=== PATIENT | male | born 1945 | race African-American/Black ===

== ENCOUNTER 2017-01-28 09:06 | Inpatient (IN) | payer OTHER ==
[~2017-01-28] VITALS: Ht 180.3 cm; Wt 108.0 kg
[~2017-01-28 09:06] MED LIST: ALLO100T PO; ASPI-482 PO; CARV12.52 PO; CLOP75TA PO; CRESTOR40 MG PO; EZET10TA3 PO; FURO40TA4 PO; INSU100I17 SQ; ISOS30TA4 PO; Insulin Detemir SQ; LISI10TA2 PO; POTA20TA4 PO
--- NOTE | 2017-01-28 09:26 | PHYS DOC ---
Past Medical History Past Medical History: Arrhythmia, CAD, Diabetes-Type II, Hypertension, Kidney Infection, PR Past Surgical History: Coronary Bypass Surgery, Pacemaker, Other Additional Past Surgical Histo: 2000 CABG x2, 2013 CABG x3, AICD Alcohol Use: None Drug Use: None Adult General Chief Complaint Chief Complaint: CHEST PAIN HPI HPI 71-year-old male who has for the last week some moderate left shoulder pain that does radiate somewhat into his chest and back now for the last several days. He does have significant history of multiple bypass surgeries and has a pacemaker device. He is also known diabetic. He denies any shortness of breath or chest pain currently. He states that his symptoms have been intermittently there. He does not believe activities make them worse. He cannot relate any inciting events to the source of his pain. Review of Systems Review of Systems Constitutional: Denies fever or chills [] Eyes: Denies change in visual acuity, redness, or eye pain [] HENT: Denies nasal congestion or sore throat [] Respiratory: Denies cough or shortness of breath [] Cardiovascular: No additional information not addressed in HPI [] GI: Denies abdominal pain, nausea, vomiting, bloody stools or diarrhea [] : Denies dysuria or hematuria [] Musculoskeletal: Denies back pain or joint pain [] Integument: Denies rash or skin lesions [] Neurologic: Denies headache, focal weakness or sensory changes [] Endocrine: Denies polyuria or polydipsia [] Current Medications Current Medications Current Medications Medications (Trade) Dose Ordered Sig/[facility] Start Time Stop Time Status Last Admin Dose Admin Morphine Sulfate 4 mg 1X ONCE 01/28/17 09:45 01/28/17 09:47 DC 01/28/17 09:52 4 MG Allergies Allergies Allergies Coded Allergies Type Severity Reaction Last Updated Verified No Known Drug Allergies 10/30/14 No Physical Exam Physical Exam Constitutional: Well developed, well nourished, no acute distress, non-toxic appearance. [] HENT: Normocephalic, atraumatic, bilateral external ears normal, oropharynx moist, no oral exudates, nose normal. [] Eyes: PERRLA, EOMI, conjunctiva normal, no discharge. [] Neck: Normal range of motion, no tenderness, supple, no stridor. [] Cardiovascular:Heart rate regular rhythm, no murmur [] Lungs & Thorax: Bilateral breath sounds clear to auscultation [] Abdomen: Bowel sounds normal, soft, no tenderness, no masses, no pulsatile masses. [] Skin: Warm, dry, no erythema, no rash. [] Back: No tenderness, no CVA tenderness. [] Extremities: No tenderness, no cyanosis, no clubbing, ROM intact, no edema. [] Neurologic: Alert and oriented X 3, normal motor function, normal sensory function, no focal deficits noted. [] Psychologic: Affect normal, judgement normal, mood normal. [] Current Patient Data Vital Signs Vital Signs Date Time Temp Pulse Resp B/P Pulse Ox O2 Delivery O2 Flow Rate FiO2 01/28/17 09:54 72 32 172/79 92 Room Air 01/28/17 09:10 98.5 98.5 Lab Values Laboratory Tests Test 01/28/17 09:15 01/28/17 09:45 White Blood Count 7.6x10^3/uL (4.0-11.0) Red Blood Count 5.14x10^6/uL (4.30-5.70) Hemoglobin 14.0g/dL (13.0-17.5) Hematocrit 43.2% (39.0-53.0) Mean Corpuscular Volume 84fL (79-100) Mean Corpuscular Hemoglobin 27pg (25-35) Mean Corpuscular Hemoglobin Concent 32g/dL (31-37) Red Cell Distribution Width 15.2% (11.5-14.5) H Platelet Count 171x10^3/uL (140-400) Neutrophils (%) (Auto) 48% (31-73) Lymphocytes (%) (Auto) 30% (24-48) Monocytes (%) (Auto) 16% (0-9) H Eosinophils (%) (Auto) 6% (0-3) H Basophils (%) (Auto) 1% (0-3) Neutrophils # (Auto) 3.6x10^3uL (1.8-7.7) Lymphocytes # (Auto) 2.3x10^3/uL (1.0-4.8) Monocytes # (Auto) 1.2x10^3/uL (0.0-1.1) H Eosinophils # (Auto) 0.4x10^3/uL (0.0-0.7) Basophils # (Auto) 0.1x10^3/uL (0.0-0.2) Sodium Level 143mmol/L (136-145) Potassium Level 4.9mmol/L (3.5-5.1) Chloride Level 107mmol/L (98-107) Carbon Dioxide Level 26mmol/L (21-32) Anion Gap 10 (6-14) Blood Urea Nitrogen 37mg/dL (8-26) H Creatinine 2.1mg/dL (0.7-1.3) H Estimated GFR (Cockcroft-Gault) 37.6 Glucose Level 135mg/dL (70-99) H Calcium Level 9.0mg/dL (8.5-10.1) Troponin I Quantitative 0.072ng/mL (0.000-0.055) Laboratory Tests 01/28/17 09:15 Laboratory Tests 01/28/17 09:45 EKG EKG EKG as interpreted by me shows sinus rhythm with a leftward axis and a rate of 63 bpm. There are no obvious ischemic findings seen. Radiology/Procedures Radiology/Procedures Portable view of the chest shows some mild pulmonary edema at the base but no other acute findings. Course & Med Decision Making Course & Med Decision Making Pertinent Labs and Imaging studies reviewed. (See chart for details) This 71-year-old male with known cardiac history with significant left shoulder pain that is not present on my initial evaluation. At this time, his symptoms are very subjective and sounds somewhat atypical for heart related chest pain however with his prior history I will be obtaining full laboratory workup. His EKG at this time does not reveal any acute findings. Laboratory workup shows a mildly elevated troponin of 0.07 that he's had elevated in the past at around this level. Chest film shows some mild pulmonary congestion bilaterally but no other acute findings. I'll be admitting the patient for his ongoing left shoulder and chest pain. I discussed the need to admit the patient with the hospitalist, Dr. Singh, who agreed to accept the patient with cardiology consult as well. Repeat troponins were performed. Patient left the department feeling improved and in no acute distress. Dragon Disclaimer Dragon Disclaimer This electronic medical record was generated, in whole or in part, using a voice recognition dictation system. Departure Departure Impression: Primary Impression: Chest pain Disposition: 09 ADMITTED INPATIENT Admitting Physician: Kim Singh Condition: STABLE Referrals: DARLING CASTORENA MD (PCP) LUCIA PATTON DO Jan 28, 2017 09:26
[2017-01-28 09:28] LABS: BASO # 0.1 x10^3/uL (0.0-0.2); BASO % 1 % (0-3); EOS % 6 % (0-3); HEMATOCRIT 43.2 % (39.0-53.0); LYMPH # 2.3 x10^3/uL (1.0-4.8); LYMPH % 30 % (24-48); MEAN CORPUSCULAR HEMOGLOBIN 27 pg (25-35); MEAN CORPUSCULAR HGB CONC 32 g/dL (31-37); MEAN CORPUSCULAR VOLUME 84 fL (79-100); MONO % 16 % (0-9); NEUT % 48 % (31-73); PLATELET COUNT 171 x10^3/uL (140-400); RED BLOOD COUNT 5.14 x10^6/uL (4.30-5.70); RED CELL DISTRIBUTION WIDTH 15.2 % (11.5-14.5); WHITE BLOOD COUNT 7.6 x10^3/uL (4.0-11.0)
--- NOTE | 2017-01-28 09:30 | RAD ---
EXAM: Chest one view. HISTORY: Chest pain. COMPARISON: 09/28/2015. FINDINGS: A frontal view of the chest is obtained. A left-sided pacer/defibrillator has its leads in the right atrium and right ventricle. There are changes of coronary artery bypass grafting. Mild interstitial opacities in the bases are consistent with mild pulmonary edema and atelectasis. There is no pneumothorax or pleural effusion. The heart is moderately enlarged. IMPRESSION: 1. Mild pulmonary edema. Moderate cardiomegaly.
--- NOTE | 2017-01-28 09:34 | EKG ---
[facility] [address] [place] [address] Test Date: 2017-01-28 Test Time: 09:14:36 Pat Name: NAVEED KRAUSE Department: Room: Gender: M Memory Care Director: : 1945 Requested By: LUCIA PATTON Order Number: [id number] Reading MD: Measurements Intervals [place] Rate: 63 P: -44 [place]: 156 QRS: -10 QRSD: 112 T: 137 QT: 440 QTc: 454 Interpretive Statements SINUS RHYTHM LEFTWARD AXIS QRS(T) CONTOUR ABNORMALITY CONSISTENT WITH INFERIOR INFARCT PROBABLY OLD T ABNORMALITY IN LATERAL LEADS RI6.01 Unconfirmed report No previous ECG available for comparison
[2017-01-28] MEDS ORDERED: MORPHINE SULFATE 4 MG/ML DISP.SYRIN. IV ONE (09:45)
[2017-01-28 10:03] LABS: CREATININE 2.1 mg/dL (0.7-1.3); GFR 37.6; POTASSIUM 4.9 mmol/L (3.5-5.1)
--- NOTE | 2017-01-28 11:13 | ACF ---
Admission Forms Criteria CARDIOLOGY GRG Clinical Indications for Admission to Inpatient Care ( Place 'X' for any and all applicable criteria): Hospital admission is needed for appropriate care of the patient because of ANY ONE of the following (1): [ ] I. Hemodynamic instability as indicated by ALL of the following (1)(2)(3) (4)(5) [ ]a) Vital signs or other findings not as expected for chronic patient condition or baseline [ ]b) Instability indicated by ANY ONE of the following: [ ]i) Hypotension [ ]ii) Symptomatic Tachycardia unresponsive to treatment ( e.g., analgesia, fluids, sedation as indicated) [ ]iii) Inadequate perfusion indicated by ANY ONE of the following: [ ] 1) Lactic acidosis (> 2 mmol/L) [ ] 2) New abnormal capillary refill (> 3 seconds) [ ] 3) Reduced urine output [ ] 4) New altered mental status [ ]iv) Orthostatic vital sign changes unresponsive to treatment (e.g., fluids) [ ]v) IV inotropic or vasopressor medication required to maintain adequate blood pressure or perfusion [ ] II. Severe heart failure as indicated by ANY ONE of the following(17)(18) [ ]a) Respiratory distress [ ]b) Hypotension [ ]c) Anasarca (refractory to outpatient therapy) [ ]d) Cardiac arrhythmias of immediate concern [ ]e) Myocardial ischemia [ ] III. Cardiac arrhythmias or findings of immediate concern indicated by ANY ONE of the following (19)(20): [ ] a) Heart rhythms that are inherently dangerous or unstable indicated by ANY ONE of the following (21)(22)(23): [ ] i) Resuscitated ventricular fibrillation or cardiac arrest [ ] ii) Ventricular escape rhythm [ ] iii) Sustained ventricular tachycardia (30 seconds or more of ventricular rhythm at greater than 100 beats per minute) [ ] iv) Nonsustained ventricular tachycardia and ANY ONE of the following: [ ] 1) Suspected cardiac ischemia as cause or consequence of ventricular tachycardia [ ] 2) In setting of acute myocarditis [ ] b) Unstable cardiac conduction defects indicated by ANY ONE of the following(23)(24)(25) [ ] i) Type II second-degree atrioventricular block [ ]ii) Third-degree atrioventricular block [ ]iii) New-onset left bundle branch block with suspected myocardial ischemia [ ]c) Any heart rhythm and ANY ONE of the following (21)(22)(26)(27) (28) [ ] i) Continuous long-term ECG monitoring needed (e.g., initiation of drug requiring monitoring for more than 24 hours) [ ] ii) Patient has automatic implanted cardioverter defibrillator that is repeatedly firing, malfunctioning, or in need of immediate adjustment of settings beyond the scope of ambulatory or observation care [ ]d) Heart rhythms of concern due to ANY ONE of the following: [ ] i) Hypotension [ ] ii) Respiratory distress [ ] iii) Association with other significant symptoms (e.g., bradycardia with syncope or ongoing dizziness, supraventricular tachycardia with chest pain (14)(15)(17) [ ] IV. Monitoring for cardiac contusion beyond the scope of observation care needed [A](30)(31)(32) [ ] V. Surgical or device complication (e.g., valve replacement complication , pacemaker dysfunction) (35)(41)(44)(45)(46) [ ] . Inpatient palliative care needed. [B](49) Also use Inpatient Palliative Care Criteria [ ] VII. Nonbacterial thrombotic (marantic) endocarditis (36)(43)(47)(48) [X] VIII. Cardiology condition, symptom, or finding for which emergency and observation care has failed or are not considered appropriate. [ ] IX. Acute valvular disease requiring inpatient as indicated by ANY ONE of the following (41) [ ]a) Acute valvular regurgitation (42) [ ]b) Noninfectious valvulitis (43) [ ]c) Obstructive valve thrombosis [ ]d) Paravalvular leak [ ]e) Other significant valvular disorder remaining after emergency or observation level of care (as appropriate) [ ]X. Pericardial disease requiring inpatient treatment as indicated by ANY ONE of the following (33)(34)(35)(36)(37) [ ]a) Suspected tamponade (38)(39)(40) [ ]b) Hemopericardium [ ]c) Other significant pericardial disorder remaining after emergency or observation level of care (as appropriate) [ ] XI. Cardiac ischemia beyond scope of emergency and observation care. [ ] XII. Hypertension requiring inpatient treatment as indicated by ANY ONE of the following (6)(7)(8) [ ]a) SBP greater than 220 mm Hg or DBP greater than 120 mmHg despite treatment [ ]b) SBP greater than 140 mm Hg or DBP greater than 100 mm Hg with evidence of acute end organ damage as indicated by ANY ONE of the following [ ] i) Encephalopathy [ ] ii) Acute renal failure as indicated by new onset of ANY ONE of the following (9)(10)(11)(12)(13) [ ]1) 3-fold rise in serum creatinine from baseline [ ]2) Serum creatinine greater than 4 mg/dL ( 354 micromoles/L) with acute rise greater than 0.5 mg/dL (44.2 micromoles/L) [ ]3) Reduction of more than 75% in estimated glomerular filtration rate from baseline [ ]4) Estimated glomerular filtration rate less than 35 mL/min/1.73m2 (0.59 mL/sec/1.73m2) in child up to 18 years of age [ ]5) Cessation of urine output indicated by ALL of the following [ ]A. Adequate volume status [ ]B. Inadequate urine output as indicated by ANY ONE of the following [ ]a. Urine output less than 0.3 mL/kg/hr for 24 hours [ ]b. Anuria (urine output less than 0.1 mL/kg/hr) for 12 hours [ ] iii) Aortic dissection [ ] iv) Myocardial Ischemia [ ] v) Left ventricular heart failure [ ]vi) Retinal Hemorrhage [ ]vii) Other significant finding [ ]c) Hypertension in child requiring inpatient treatment as indicated by ALL of the following(14)(15)(16) [ ] i) Outpatient treatment not effective, not available, or not appropriate [ ]ii) SBP or DBP greater than 95th percentile for age [ ]iii) Evidence of acute end organ damage as indicated by ANY ONE of the following [ ]1) Altered mental status [ ]2) Acute renal failure as indicated by new onset of ANY ONE of the following(9)(10)(11)(12)(13) [ ]A. 3-fold rise in serum creatinine from baseline [ ]B. Serum creatinine greater than 4 mg/dL (354 micromoles/L) with acute rise greater than 0.5 mg/dL (44.2 micromoles/L) [ ]C. Reduction of more than 75% in estimated glomerular filtration rate from baseline [ ]D. Estimated glomerular filtration rate less than 35 mL/min/1.73m2 (0.59 mL/sec/1.73m2) in child up to 18 years of age [ ]E. Cessation of urine output indicated by ALL of the following [ ]a. Adequate volume status [ ]b. Inadequate urine output as indicated by ANY ONE of the following [ ]i) Urine output less than 0.3 mL/kg/hr for 24 hours [ ]ii) Anuria ( urine output less than 0.1 mL/kg/hr) for 12 hours [ ]3) Severe headache [ ]4) Visual disturbance [ ]5) Retinal hemorrhage [ ]6) Other significant finding [ ]XIII. Complications of transplanted heart indicated by ANY ONE of the following(61): [ ]a) Acute graft rejection requiring inpatient management (eg, intravenous immunosuppression)(62)(63) [ ]b) Acute graft heart failure indicated by ANY ONE of the following(64): [ ]i) Hemodynamic instability [ ]ii) Cardiac arrhythmias of immediate concern [ ]iii) Pulmonary edema that is very severe (eg, mechanical ventilation needed, imminent or likely, need for 100% oxygen to keep oxygen saturation above 90%) [ ]iv) Pulmonary edema that is persistent as indicated by ALL of the following: [ ]1) New need for oxygen therapy to keep oxygen saturation above 90% (or increased FiO2 need from baseline) [ ]2) Has not improved sufficiently with emergency department or observation care IV diuretics or other heart failure treatments[E] [ ]v) Altered mental status that is severe or persistent [ ]vi) Increased creatinine (new on laboratory test) with reduction of more than 50% in estimated glomerular filtration rate from baseline [ ]vii) Progressively (ongoing) rising creatinine (known from past laboratory test) with reduction of more than 25% in estimated glomerular filtration rate from baseline [ ]viii) Acute renal failure [ ]ix) Acute peripheral ischemia (eg, examination shows pulseless, cool, mottled, or cyanotic extremity) [ ]x) Pulmonary artery catheter monitoring needed [ ]xi) Other sign or symptom of heart failure requiring inpatient treatment (ie, too severe or not responsive to outpatient and observation care treatment) [ ]c) Infection requiring inpatient management (eg, Hemodynamic instability, need for intravenous antimicrobial treatment)(66)(67)(68)(69)(70) [ ]d) Cardiac allograft vasculopathy requiring inpatient management ( eg evidence of cardiac ischemia)(71) [ ]e) Other complication of transplanted heart (eg, stroke, severe pulmonary hypertension, severe valvular dysfunction) requiring inpatient management(72) The original [facility] content created by [facility] has been revised. The portions of the content which have been revised are identified through the use of italic text or in bold, and [facility] has neither reviewed nor approved the modified material. All other unmodified content is copyright [facility]. Please see references footnoted in the original [facility] edition 2016 Admission Criteria Met?: Yes CHASIDY GALLEGOS Jan 28, 2017 11:13
[2017-01-28] MEDS ORDERED: ACETAMINOPHEN 500 MG TABLET PO PRN (11:15)
[2017-01-28] MEDS ORDERED: hydrALAZINE 20 MG/ML VIAL. IVP PRN (11:15)
[2017-01-28] MEDS ORDERED: ONDANSETRON PF 4 MG/2 ML VIAL. IV PRN (11:15)
[2017-01-28] MEDS: INSULIN ASPART 300 UNITS/3 ML INSULN.PEN SQ SCH ×4 (11:30→17:20)
[2017-01-28] MEDS ORDERED: DEXTROSE 50% 25 GM / 50ML DISP.SYRIN. IV PRN (11:30)
--- NOTE | 2017-01-28 11:40 | PDOC1 ---
History and Physical Date of Admission Date of Admission DATE: 01/28/17 TIME: 11:34 Identification/Chief Complaint Chief Complaint left shoulder pain Source Source: Caregiver, Chart review, Patient History of Present Illness History of Present Illness Pleasant 71 y.o AA male with significant cardiac hx, left shoulder pain, 4-5 days ago onset, maybe involved left arm, no other sxs of soa, diaphoresis etc, Denies recent trauma or heavy lifting, Pain reproducible on palpation of left posterior shoulder area. VS ok, BUt trop mild elevation 0.072. GIven cardiac hx , admitted for r/.o ACS Pty claims compliance with meds, CXR neg Past Medical History Cardiovascular: CAD, CHF, HTN, Hyperlipidemia, Other Pulmonary: No pertinent hx CENTRAL NERVOUS SYSTEM: Other GI: No pertinent hx Heme/Onc: No pertinent hx Hepatobiliary: No pertinent hx Psych: No pertinent hx Musculoskeletal: Osteoarthritis Infectious disease: No pertinent hx Renal/: Chronic renal insuff Endocrine: Diabetes Past Surgical History Past Surgical History: CABG, Other Family History Family History: No Significant, Diabetes Social History Smoke: No ALCOHOL: none Drugs: None Current Problem List Problem List Problems Medical Problems: (1) Chest pain Status: Acute Problems: Current Medications Current Medications Current Medications Morphine Sulfate 4 mg 1X ONCE IV Last administered on 01/28/17t 09:52; Start 01/28/17 at 09:45; Stop 01/28/17 at 09:47; Status DC Ondansetron HCl (Zofran) 4 mg PRN Q6HRS PRN IV NAUSEA/VOMITING; Start 01/28/17 at 11:15 Acetaminophen (Tylenol) 500 mg PRN Q6HRS PRN PO MILD PAIN / TEMP; Start at 11:15 Morphine Sulfate 2 mg PRN Q2HR PRN IV PAIN; Start 01/28/17 at 11:15 Hydralazine HCl (Apresoline) 10 mg PRN Q4HRS PRN IVP ELEVATED BP, SEE COMMENTS ; Start 01/28/17 at 11:15 Aspirin (Ecotrin) 81 mg DAILY PO ; Start 01/29/17 at 09:00 Carvedilol (Coreg) 12.5 mg BIDWMEALS PO ; Start 01/28/17 at 17:00 Clopidogrel Bisulfate (Plavix) 75 mg DAILY PO ; Start 01/29/17 at 09:00 EZETIMIBE (Zetia) 10 mg DAILY PO ; Start 01/29/17 at 09:00 Insulin Aspart (Novolog) 12 units TIDAC SQ ; Start 01/28/17 at 11:30 Isosorbide Mononitrate (Imdur) 30 mg DAILY PO ; Start 01/29/17 at 09:00 Lisinopril (Prinivil) 10 mg DAILY PO ; Start 01/29/17 at 09:00 Potassium Chloride (Klor-Con) 20 meq DAILY PO ; Start 01/29/17 at 09:00 Atorvastatin Calcium (Lipitor) 80 mg QHS PO ; Start 01/28/17 at 21:00 Insulin Aspart (Novolog) 0-9 UNITS TIDWMEALS SQ ; Start 01/28/17 at 12:00 Dextrose 12.5 gm PRN Q15MIN PRN IV SEE COMMENTS; Start 01/28/17 at 11:30 Active Scripts Active Novolog Flexpen (Insulin Aspart) 300 Units/3 Ml Insuln.pen 12 Units SQ TIDAC Reported Klor-Con M20 (Potassium Chloride) 20 Meq Tab.er.prt 20 Meq PO DAILY Aspir 81 (Aspirin) 81 Mg Tablet.dr 81 Mg PO DAILY Clopidogrel (Clopidogrel Bisulfate) 75 Mg Tablet 75 Mg PO DAILY Crestor (Rosuvastatin Calcium) 40 Mg Tablet 40 Mg PO HS Lisinopril 10 Mg Tablet 10 Mg PO DAILY Zetia (Ezetimibe) 10 Mg Tablet 10 Mg PO DAILY Carvedilol 12.5 Mg Tablet 12.5 Mg PO BID Isosorbide Mononitrate Er (Isosorbide Mononitrate) 30 Mg Tab.er.24h 30 Mg PO DAILY Allergies Allergies: Coded Allergies: No Known Drug Allergies (Unverified , 10/30/14) ROS General: No: Appetite, Chills, Fatigue, Malaise, Night Sweats, Other PSYCHOLOGICAL ROS: No: Anxiety, Behavioral Disorder, Concentration difficultie , Decreased libido, Depression, Disorientation, Hallucinations, Hostility, Irritablity, Memory difficulties, Mood Swings, Obsessive thoughts, Other, Physical abuse, Sexual abuse, Sleep disturbances, Suicidal ideation Eyes: No Blurry vision, No Decreased vision, No Double vision, No Dry eyes, No Excessive tearing, No Eye Pain, No Itchy Eyes, No Loss of vision, No Other, No Photophobia, No Scotomata, No Uses contacts, No Uses glasses HEENT: No: Epistaxis, Heacaches, Hearing change, Nasal congestion, Nasal discharge, Oral lesions, Other, Sinus pain, Sneezing, Snoring, Sore Throat, Tinnitus, Vertigo, Visual Changes, Vocal changes ALLERGY AND IMMUNOLOGY: No: Hives, Insect Bite Sensitivity, Itchy/Watery Eyes, Nasal Congestion, Other, Post Nasal Drip, Seasonal Allergies Hematological and Lymphatic: No: Bleeding Problems, Blood Clots, Blood Transfusions, Brusing, Night Sweats, Other, Pallor, Swollen Lymph Nodes ENDOCRINE: No: Breast Changes, Galactorrhea, Hair Pattern Changes, Hot Flashes , Malaise/lethargy, Mood Swings, Other, Palpitations, Polydipsia/polyuria, Skin Changes, Temperature Intolerance, Unexpected Weight Changes Breast: No New/Changing Breast Lumps, No Nipple changes, No Nipple discharge, No Other Respiratory: No: Cough, Hemoptysis, Orthopnea, Other, Pleuritic Pain, SOB with excertion, Shortness of breath, Sputum Changes, Stridor, Tachypnea, Wheezing Cardiovascular: No Chest Pain, No Edema, No Lt Headedness, No Orthopnea, No Other, No Palpitations, No Paroxysmal Noc. Dyspnea Gastrointestinal: No Abdominal Pain, No Constipation, No Diarrhea, No Hematochezia, No Melena, No Nausea, No Other, No Vomiting Genitourinary: No , No , No , No , No , No , No , No Discharge, No Dysuria, No Flank Pain, No Frequency, No Hematuria, No Incontinence, No Other, No Pain, No Retention, No Urgency Musculoskeletal: Yes Other (left shoulder pain) Neurological: No Behavorial Changes, No Bowel/Bladder ControlChng, No Confusion , No Dizziness, No Gait Disturbance, No Headaches, No Impaired Coord/balance, No Memory Loss, No Numbness/Tingling, No Other, No Seizures, No Speech Problems , No Tremors, No Visual Changes, No Weakness Skin: No Acne, No Dry Skin, No Eczema, No Hair Changes, No Lumps, No Mole Changes, No Mottling, No Nail Changes, No Other, No Pruritus, No Rash, No Skin Lesion Changes Physical Exam General: Alert, Oriented X3, Cooperative, No acute distress HEENT: Atraumatic Lungs: Clear to auscultation Heart: S1S2, RRR, no thrills, no rubs Cardiovascular: S1 Breasts: Normal Abdomen: Normal bowel sounds, Soft, No tenderness, No hepatosplenomegaly, No masses Male Genitals Exam: normal genitalia, normal prostate Rectal Exam: not examined PELVIC: Nml ext genitalia Extremities: No clubbing, No cyanosis, No edema, Normal pulses, No tenderness/ swelling Skin: No rashes, No breakdown, No significant lesion Neuro: Normal gait, Normal speech, Strength at 5/5 X4 ext, Normal tone, Sensation intact, Cranial nerves 3-12 NL, Reflexes 2+ Psych/Mental Status: Mental status NL, Mood NL Vitals Vitals Vital Signs Date Time Temp Pulse Resp B/P Pulse Ox O2 Delivery O2 Flow Rate FiO2 01/28/17 09:52 24 94 Room Air 01/28/17 09:10 98.5 63 174/90 98.5 Labs Labs Laboratory Tests Test 01/28/17 09:15 01/28/17 09:45 White Blood Count 7.6x10^3/uL (4.0-11.0) Red Blood Count 5.14x10^6/uL (4.30-5.70) Hemoglobin 14.0g/dL (13.0-17.5) Hematocrit 43.2% (39.0-53.0) Mean Corpuscular Volume 84fL (79-100) Mean Corpuscular Hemoglobin 27pg (25-35) Mean Corpuscular Hemoglobin Concent 32g/dL (31-37) Red Cell Distribution Width 15.2% (11.5-14.5) Platelet Count 171x10^3/uL (140-400) Neutrophils (%) (Auto) 48% (31-73) Lymphocytes (%) (Auto) 30% (24-48) Monocytes (%) (Auto) 16% (0-9) Eosinophils (%) (Auto) 6% (0-3) Basophils (%) (Auto) 1% (0-3) Neutrophils # (Auto) 3.6x10^3uL (1.8-7.7) Lymphocytes # (Auto) 2.3x10^3/uL (1.0-4.8) Monocytes # (Auto) 1.2x10^3/uL (0.0-1.1) Eosinophils # (Auto) 0.4x10^3/uL (0.0-0.7) Basophils # (Auto) 0.1x10^3/uL (0.0-0.2) Sodium Level 143mmol/L (136-145) Potassium Level 4.9mmol/L (3.5-5.1) Chloride Level 107mmol/L (98-107) Carbon Dioxide Level 26mmol/L (21-32) Anion Gap 10 (6-14) Blood Urea Nitrogen 37mg/dL (8-26) Creatinine 2.1mg/dL (0.7-1.3) Estimated GFR (Cockcroft-Gault) 37.6 Glucose Level 135mg/dL (70-99) Calcium Level 9.0mg/dL (8.5-10.1) Troponin I Quantitative 0.072ng/mL (0.000-0.055) Laboratory Tests Test 01/28/17 09:15 01/28/17 09:45 White Blood Count 7.6x10^3/uL (4.0-11.0) Red Blood Count 5.14x10^6/uL (4.30-5.70) Hemoglobin 14.0g/dL (13.0-17.5) Hematocrit 43.2% (39.0-53.0) Mean Corpuscular Volume 84fL (79-100) Mean Corpuscular Hemoglobin 27pg (25-35) Mean Corpuscular Hemoglobin Concent 32g/dL (31-37) Red Cell Distribution Width 15.2% (11.5-14.5) Platelet Count 171x10^3/uL (140-400) Neutrophils (%) (Auto) 48% (31-73) Lymphocytes (%) (Auto) 30% (24-48) Monocytes (%) (Auto) 16% (0-9) Eosinophils (%) (Auto) 6% (0-3) Basophils (%) (Auto) 1% (0-3) Neutrophils # (Auto) 3.6x10^3uL (1.8-7.7) Lymphocytes # (Auto) 2.3x10^3/uL (1.0-4.8) Monocytes # (Auto) 1.2x10^3/uL (0.0-1.1) Eosinophils # (Auto) 0.4x10^3/uL (0.0-0.7) Basophils # (Auto) 0.1x10^3/uL (0.0-0.2) Sodium Level 143mmol/L (136-145) Potassium Level 4.9mmol/L (3.5-5.1) Chloride Level 107mmol/L (98-107) Carbon Dioxide Level 26mmol/L (21-32) Anion Gap 10 (6-14) Blood Urea Nitrogen 37mg/dL (8-26) Creatinine 2.1mg/dL (0.7-1.3) Estimated GFR (Cockcroft-Gault) 37.6 Glucose Level 135mg/dL (70-99) Calcium Level 9.0mg/dL (8.5-10.1) Troponin I Quantitative 0.072ng/mL (0.000-0.055) VTE Prophylaxis Ordered VTE Prophylaxis Devices: Yes VTE Pharmacological Prophylaxi: Yes Assessment/Plan Assessment/Plan 1. left shoulder pain, seemingly reproducible on palpation - likely MSK in origin 2. Hx chronic systolic CHF 3. Hx Severe ICM: EF 20%? CAD in the past with CABG. AICD in place. 4. MIld trop elevation 5. HTN: controlled 6. HLP: statin 7. DM2: hx DKA 8. 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 Hx of AAA with repair PLAN: Add physiatry consult Cant do nsaid bec of kidney fcn COnsult renal MOnitor crea Trend Trops Cards consulted REsume home meds SSI PT/OT Seen at ER 19 ONOFRE ARSHAD MD Jan 28, 2017 11:40
[2017-01-28 12:33] VITALS: BP 168/93
--- NOTE | 2017-01-28 12:41 | PDOC2 ---
CARDIAC CONSULT DATE OF CONSULT Date of Consult DATE: 01/28/17 TIME: 12:40 REASON FOR CONSULT Reason for Consult: Dr. Asim Simon REFERRING PHYSICIAN Referring Physician: chest pain SOURCE Source: Chart review, Patient HISTORY OF PRESENT ILLNESS HISTORY OF PRESENT ILLNESS 71 year old with a one week history of constant heavy pain in the left shoulder with intermittent radiation into the left chest and left arm. Denies change in activity in the last week. No clear exacerbating or alleviating factors. No associated dyspnea, dizziness, lightheadedness palpitations, or lower extremity edema. Dyspnea on exertion. Troponin level 0.07 in the setting of a Cr of 2.1. No acute changes in EKG. Reason for Visit: shoulder pain PAST MEDICAL HISTORY Cardiovascular: CAD (CABG in 1999; LM stent 08/2012; redo CABG 2012), CHF ( NYHA 1-2; systolic), HTN, Hyperlipidemia, Other (carotid disease with KANDIS 50-69 % and LICA > 70% with moderate to severe vertebral disease bilaterally - 07/2016 ; NSVT with previous amiodarone therapy; PAD in RLE - declined evaluation; ischemic CMP with Medtr[employer] ICD) Musculoskeletal: Osteoarthritis ENT: Other (blind in left eye) Renal/: Chronic renal insuff (stage 2) Endocrine: Diabetes (type II) PAST SURGICAL HISTORY Past Surgical History: Pacemaker (ICD - medtronic), CABG (1999; redo X 4 - 01/09), Other (LM stent - 2011; AAA repair - 11/2012; left thoracentesis - 2012) FAMILY HISTORY Family History negative for CAD SOCIAL HISTORY Smoke: Quit ALCOHOL: none Drugs: None CURRENT MEDICATIONS CURRENT MEDICATIONS Current Medications Medications (Trade) Dose Ordered Sig/Ned Route PRN Reason Start Time Stop Time Status Last Admin Dose Admin Morphine Sulfate 4 mg 1X ONCE IV 01/28/17 09:45 01/28/17 09:47 DC 01/28/17 09:52 ALLERGIES ALLERGIES: Coded Allergies: No Known Drug Allergies (Unverified , 10/30/14) ROS General: YES: Malaise PSYCHOLOGICAL ROS: No: Anxiety, Behavioral Disorder, Concentration difficultie , Decreased libido, Depression, Disorientation, Hallucinations, Hostility, Irritablity, Memory difficulties, Mood Swings, Obsessive thoughts, Other, Physical abuse, Sexual abuse, Sleep disturbances, Suicidal ideation Eyes: Yes Loss of vision (left eye) HEENT: No: Epistaxis, Heacaches, Hearing change, Nasal congestion, Nasal discharge, Oral lesions, Other, Sinus pain, Sneezing, Snoring, Sore Throat, Tinnitus, Vertigo, Visual Changes, Vocal changes ALLERGY AND IMMUNOLOGY: No: Hives, Insect Bite Sensitivity, Itchy/Watery Eyes, Nasal Congestion, Other, Post Nasal Drip, Seasonal Allergies Hematological and Lymphatic: No: Bleeding Problems, Blood Clots, Blood Transfusions, Brusing, Night Sweats, Other, Pallor, Swollen Lymph Nodes ENDOCRINE: No: Breast Changes, Galactorrhea, Hair Pattern Changes, Hot Flashes , Malaise/lethargy, Mood Swings, Other, Palpitations, Polydipsia/polyuria, Skin Changes, Temperature Intolerance, Unexpected Weight Changes Respiratory: YES: Cough (yellow sputum), SOB with excertion Cardiovascular: No Chest Pain, No Edema, No Lt Headedness, No Orthopnea, No Other, No Palpitations, No Paroxysmal Noc. Dyspnea Gastrointestinal: No Abdominal Pain, No Constipation, No Diarrhea, No Hematochezia, No Melena, No Nausea, No Other, No Vomiting Genitourinary: No Discharge, No Dysuria, No Flank Pain, No Frequency, No Hematuria, No Incontinence, No Other, No Pain, No Retention, No Urgency Musculoskeletal: Yes Pain In: (left shoulder X 1 week) Neurological: No Behavorial Changes, No Bowel/Bladder ControlChng, No Confusion , No Dizziness, No Gait Disturbance, No Headaches, No Impaired Coord/balance, No Memory Loss, No Numbness/Tingling, No Other, No Seizures, No Speech Problems , No Tremors, No Visual Changes, No Weakness Skin: No Acne, No Dry Skin, No Eczema, No Hair Changes, No Lumps, No Mole Changes, No Mottling, No Nail Changes, No Other, No Pruritus, No Rash, No Skin Lesion Changes PHYSICAL EXAM General: Alert, Oriented X3, Cooperative, No acute distress HEENT: Atraumatic, PERRLA Lungs: Other (posterior basilar crackles left base; otherwise clear) Heart: Regular rate, Normal S1, Normal S2, Other (1-2/6 systolic murmur) Abdomen: Normal bowel sounds, Soft Extremities: No edema, Normal pulses (PT 1+ bilaterally) Psych/Mental Status: Mental status NL, Mood NL MUSCULOSKELETAL: Osteoarthritic changes both hands VITALS VITALS Vital Signs Date Time Temp Pulse Resp B/P Pulse Ox O2 Delivery O2 Flow Rate FiO2 01/28/17 12:33 97.8 72 21 168/93 95 Nasal Cannula 2.0 97.8 LABS Lab: Laboratory Tests Test 01/28/17 09:15 01/28/17 09:45 01/28/17 12:26 White Blood Count 7.6x10^3/uL (4.0-11.0) Red Blood Count 5.14x10^6/uL (4.30-5.70) Hemoglobin 14.0g/dL (13.0-17.5) Hematocrit 43.2% (39.0-53.0) Mean Corpuscular Volume 84fL (79-100) Mean Corpuscular Hemoglobin 27pg (25-35) Mean Corpuscular Hemoglobin Concent 32g/dL (31-37) Red Cell Distribution Width 15.2% (11.5-14.5) Platelet Count 171x10^3/uL (140-400) Neutrophils (%) (Auto) 48% (31-73) Lymphocytes (%) (Auto) 30% (24-48) Monocytes (%) (Auto) 16% (0-9) Eosinophils (%) (Auto) 6% (0-3) Basophils (%) (Auto) 1% (0-3) Neutrophils # (Auto) 3.6x10^3uL (1.8-7.7) Lymphocytes # (Auto) 2.3x10^3/uL (1.0-4.8) Monocytes # (Auto) 1.2x10^3/uL (0.0-1.1) Eosinophils # (Auto) 0.4x10^3/uL (0.0-0.7) Basophils # (Auto) 0.1x10^3/uL (0.0-0.2) Sodium Level 143mmol/L (136-145) Potassium Level 4.9mmol/L (3.5-5.1) Chloride Level 107mmol/L (98-107) Carbon Dioxide Level 26mmol/L (21-32) Anion Gap 10 (6-14) Blood Urea Nitrogen 37mg/dL (8-26) Creatinine 2.1mg/dL (0.7-1.3) Estimated GFR (Cockcroft-Gault) 37.6 Glucose Level 135mg/dL (70-99) Calcium Level 9.0mg/dL (8.5-10.1) Troponin I Quantitative 0.072ng/mL (0.000-0.055) Glucose (Fingerstick) 98mg/dL (70-99) IMAGES IMAGES CXR: FINDINGS: A frontal view of the chest is obtained. A left-sided pacer/defibrillator has its leads in the right atrium and right ventricle. There are changes of coronary artery bypass grafting. Mild interstitial opacities in the bases are consistent with mild pulmonary edema and atelectasis. There is no pneumothorax or pleural effusion. The heart is moderately enlarged. IMPRESSION: 1. Mild pulmonary edema. Moderate cardiomegaly. EKG EKG no acute changes ECHOCARDIOGRAM ECHOCARDIOGRAM 09/29/2015: TTE: Severe LV systolic dysfunction. EF 15-20% Moderate pulmonary hypertension. RVSP 59 mm Hg. ASSESSMENT/PLAN ASSESSMENT/PLAN 1. left shoulder pain not clearly anginal in etiology & suspect musculoskeletal trivial elevation in troponin level not consistent with ACS and likely due to CKD with Cr of 2.1 echo to re-evaluate LV function and continue serial markers 2. CAD with previous CABG, LM stenting and redo CABG continue medical management with ASA, beta-blockers, long acting nitrates and ACEI 3. ischemic cardiomyopathy depressed LVEF @ 15-20% in 2014 has ICD for prevention of SCD - Medtronic - interrogated: 14 beats of NSVT that were about 4 beats in duration - no ATP or shock battery voltage - 2.63 V; impedances and thresholds not significantly changed from 07/2016 repeat echo pending continue medical management 4. chronic systolic heart failure ? of pulmonary edema on CXR but can not correlate with physical exam continue usual home meds 5. HTN control with meds 6. HLD check FLP continue statin therapy 7. DM, II per primary service 8. CKD Problems: IWONA HEIN APRN Jan 28, 2017 12:41
--- NOTE | 2017-01-28 15:19 | CARD ---
APPROVED REPORT EXAM: Two-dimensional and M-mode echocardiogram with Doppler and color Doppler. Other Information Quality : Good INDICATION Cardiomyopathy Cardiomyopathy RISK FACTORS Hypertension Obesity 2D DIMENSIONS RVDd2.7 (2.9-3.5cm)Left Atrium(2D)4.2 (1.6-4.0cm) IVSd1.0 (0.7-1.1cm)Aortic Root(2D)2.9 (2.0-3.7cm) LVDd7.4 (3.9-5.9cm)LVOT Diameter2.3 (1.8-2.4cm) PWd0.9 (0.7-1.1cm)LVDs6.9 (2.5-4.0cm) FS (%) 6.4 %SV39.7 ml LVEF(%)30.0 (>50%) Aortic Valve AoV Peak Baldev.177.8cm/sAoV VTI44.6cm AO Peak GR.12.6mmHgLVOT Peak Baldev.113.8cm/s AO Mean GR.7mmHgAVA (VMAX)2.61cm2 Mitral Valve MV E Wqnssneh89.8cm/sMV E Peak Gr.7mmHg MV DECEL [id number] A Jibtdkdc125.7cm/s MV E Mean Gr.3mmHgE/A Ratio0.6 MV A Hgksqtft21rs Pulmonary Valve PV Peak Zeajvzdw098.5cm/s Tricuspid Valve TR P. Xnskhqkj778za/sTR Peak Gr.37mmHg Pulmonary Vein S1 Ljwnjgdg19.4cm/sD2 Bazsbxpw61.5cm/s PVa [id number] LEFT VENTRICLE The Left Ventricle is mildly dilated. There is normal left ventricular wall thickness. Left ventricle systolic function is severely impaired. The Ejection Fraction is 20-25%. There is severe global hypo kinesis of the left ventricle. Transmitral Doppler flow pattern is Grade I-abnormal relaxation patter n. No left ventricle thrombus noted on this study. RIGHT VENTRICLE The right ventricle is normal size. There is normal right ventricular wall thickness. The right ventr icular systolic function is normal. ATRIA The left atrium is mildly dilated. The right atrium size is normal. The interatrial septum is intact with no evidence for an atrial septal defect or patent foramen ovale as noted on 2-D or Doppler imagi ng. AORTIC VALVE The aortic valve is mildly sclerotic. The aortic valve is trileaflet. Doppler and Color Flow revealed trace aortic regurgitation. There is no significant aortic valvular stenosis. MITRAL VALVE Mitral annular calcification is mild. The mitral valve leaflets are thickened. There is no evidence o f mitral valve prolapse. There is no mitral valve stenosis. Doppler and Color Flow revealed moderate mitral regurgitation. TRICUSPID VALVE Doppler and Color Flow revealed mild tricuspid regurgitation. The pulmonary artery systolic pressure is estimated at 42 mmHg. PULMONIC VALVE Doppler and Color Flow revealed mild pulmonic valvular regurgitation. There is no pulmonic valvular s tenosis. GREAT VESSELS The aortic root is normal in size. The ascending aorta is normal in size. The pulmonary artery is nor mal. The IVC is normal in size and collapses >50% with inspiration. PERICARDIAL EFFUSION There is no evidence of significant pericardial effusion. Critical Notification Critical Value: No <Conclusion> The Left Ventricle is mildly dilated. Left ventricle systolic function is severely impaired. The Ejection Fraction is 20-25%. There is severe global hypokinesis of the left ventricle. There is no significant aortic valvular stenosis. Doppler and Color Flow revealed trace aortic regurgitation. Doppler and Color Flow revealed moderate mitral regurgitation. Doppler and Color Flow revealed mild tricuspid regurgitation. The pulmonary artery systolic pressure is estimated at 42 mmHg.
[2017-01-28 15:30] VITALS: BP 160/79
[2017-01-28] MEDS: CARVEDILOL 12.5 MG TABLET PO SCH (17:14)
[2017-01-28 19:20] VITALS: BP 137/68
[2017-01-28] MEDS: MORPHINE SULFATE 2 MG/ML DISP.SYRIN. IV PRN (19:25)
[2017-01-28] MEDS ORDERED: ATORVASTATIN CALCIUM 40 MG TABLET. PO SCH (21:00)
[2017-01-28 23:41] VITALS: BP 137/65
[2017-01-29 03:05] VITALS: BP 128/69
[2017-01-29 05:54] LABS: BASO % 0 % (0-3); EOS % 6 % (0-3); HEMATOCRIT 41.2 % (39.0-53.0); HEMOGLOBIN 13.1 g/dL (13.0-17.5); LYMPH # 2.4 x10^3/uL (1.0-4.8); LYMPH % 36 % (24-48); MEAN CORPUSCULAR HEMOGLOBIN 27 pg (25-35); MEAN CORPUSCULAR HGB CONC 32 g/dL (31-37); MEAN CORPUSCULAR VOLUME 84 fL (79-100); MONO % 16 % (0-9); NEUT % 41 % (31-73); PLATELET COUNT 146 x10^3/uL (140-400); RED BLOOD COUNT 4.92 x10^6/uL (4.30-5.70); RED CELL DISTRIBUTION WIDTH 14.7 % (11.5-14.5); WHITE BLOOD COUNT 6.7 x10^3/uL (4.0-11.0)
[2017-01-29 06:17] LABS: CREATININE 2.1 mg/dL (0.7-1.3); GFR 37.6; POTASSIUM 4.9 mmol/L (3.5-5.1)
[2017-01-29 07:30] VITALS: BP 159/85
[2017-01-29] MEDS ORDERED: PANTOPRAZOLE 40 MG TABLET. PO SCH (07:30)
--- NOTE | 2017-01-29 07:44 | CONS ---
DATE OF CONSULTATION: 01/28/2017 ATTENDING PHYSICIAN: Dr. Singh. The patient was seen at the request of Dr. Singh for rehab evaluation. 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 The patient was admitted to the Emergency Room this morning with pain over left side of his neck and left shoulder without any radiation or any weakness or numbness and tingling sensation in the extremities. He denies any specific injury. The patient since admission is being evaluated for coronary artery disease. The patient denies any chest pain, shortness of breath, or any trouble with his bowel or bladder control. PAST MEDICAL HISTORY: Includes coronary artery disease, congestive heart failure, hypertension, hyperlipidemia, degenerative joint disease, diabetes mellitus, and chronic renal insufficiency. PAST SURGICAL HISTORY: The patient is status post coronary artery bypass graft. SOCIAL HISTORY: He lives with his in a [place], [place] home, had one or two steps to manage. Dr. Alexander Snowden is a family physician. ALLERGIES: The patient is not known allergic to any medication. FAMILY HISTORY: Diabetes mellitus. PHYSICAL EXAMINATION: Today revealed an elderly male. He is alert, oriented to time, place, person and circumstance and follows commands appropriately, moves all 4 extremities voluntarily where he had 4+/5 grade muscle strength and deep tendon reflexes are 1-2+ and symmetrical and he had equal perception of touch and pinprick sensation bilaterally. He had minimal tenderness to palpation over anterior aspect of the left shoulder. No pain on range of motion of left shoulder. He had some stiffness of his cervical spine, mainly lateral bending. No tenderness to palpation over cervical paraspinal or posterior shoulder girdle muscles. He had crepitus on range of motion of both knee joints without any obvious knee joint effusion. He is using oxygen by nasal cannula. His skin is intact at this time. He is independent with bed mobility, transfers, and his ambulation. ASSESSMENT: An elderly male with left-sided neck and shoulder pain with clinical evidence of mild tendinitis, left shoulder and stiffness of his neck to rule out any degenerative disk disease and degenerative joint disease of cervical vertebrae. No clinical evidence of ongoing cervical radiculopathy. He also presents with degenerative joint disease of both knees without any significant pain, also with known coronary artery disease, status post coronary artery bypass graft; congestive heart failure, hypertension, hyperlipidemia, diabetes mellitus, chronic renal insufficiency. RECOMMENDATIONS: To try him prednisone as an anti-inflammatory medication and Protonix to help protect his stomach and to obtain x-rays of his cervical spine to consider injecting his left shoulder if the pain persists. I have instructed him in a home program of physical modalities and Codman's exercise to his left shoulder. Dr. Singh, I appreciate asking me to participate in care of this interesting patient. I will be glad to follow him with you on an as-needed basis. He can be discharged from the rehab point when he is medically stable to be followed on an outpatient basis. MARY VELÁSQUEZ MD DR: ARON/nts JOB#: [id number] / [id number]
[2017-01-29] MEDS: INSULIN ASPART 300 UNITS/3 ML INSULN.PEN SQ SCH ×6 (08:00→18:00)
[2017-01-29] MEDS: MORPHINE SULFATE 2 MG/ML DISP.SYRIN. IV PRN (08:09)
[2017-01-29] MEDS: CARVEDILOL 12.5 MG TABLET PO SCH (08:11)
[2017-01-29] MEDS ORDERED: ISOSORBIDE MONONITRATE ER 30 MG TAB.ER.24H PO SCH (09:00)
[2017-01-29] MEDS ORDERED: CLOPIDOGREL BISULFATE 75 MG TABLET PO SCH (09:00)
[2017-01-29] MEDS ORDERED: LIDOCAINE (700MG/PATCH) PATCH. TD SCH (09:00)
[2017-01-29] MEDS ORDERED: ASPIRIN ENTERIC COATED 81 MG TABLET.DR. PO SCH (09:00)
[2017-01-29] MEDS ORDERED: EZETIMIBE 10 MG TABLET PO SCH (09:00)
[2017-01-29] MEDS ORDERED: LISINOPRIL 10 MG TABLET PO SCH (09:00)
[2017-01-29] MEDS ORDERED: POTASSIUM CHLORIDE 20 MEQ TABLET.ER. PO SCH (09:00)
[2017-01-29] MEDS ORDERED: PREDNISONE 10 MG TABLET PO SCH (09:00)
--- NOTE | 2017-01-29 09:10 | RAD ---
Exam performed: X-ray lumbar spine 4 views. History: Neck pain radiating to the left shoulder. Date of service: 01/28/17. Comparison: None available Findings: AP, lateral, swimmer's view and open-mouth of the cervical spine is obtained. Normal sagittal alignment is preserved. The vertebral body heights are maintained. There is narrowing of several intervertebral disc spaces including C3/4, C4/5, C5/6 and C7/T1 with diffuse osteophytic spurring. No acute compression fracture. No prevertebral soft tissue swelling. Impression: Spondylotic changes and multilevel disc degenerative changes involving the cervical spine. No acute abnormality seen.
--- NOTE | 2017-01-29 09:46 | PDOC ---
CARDIO Progress Notes Date and Time Date of Service 01/29/2017 Time of Evaluation 0941 Subjective Subjective: No Chest Pain, No shortness of breath, No Palpitations, No Dizziness, Other (intermittent left shoulder pain ) Vitals Vitals Vital Signs Date Time Temp Pulse Resp B/P Pulse Ox O2 Delivery O2 Flow Rate FiO2 01/29/17 08:11 61 159/85 01/29/17 08:09 18 94 Nasal Cannula 2.0 01/29/17 07:30 98.1 98.1 Weight Weight [ ] Input and Output Intake and Output Intake and Output 01/29/17 07:00 Intake Total 1250 ml Output Total 200 ml Balance 1050 ml Intake Oral 1250 ml Output Urine Total 200 ml # Voids 1 Laboratory Labs Laboratory Tests Test 01/28/17 09:45 01/28/17 12:26 01/28/17 15:55 01/28/17 16:50 Sodium Level 143mmol/L (136-145) Potassium Level 4.9mmol/L (3.5-5.1) Chloride Level 107mmol/L (98-107) Carbon Dioxide Level 26mmol/L (21-32) Anion Gap 10 (6-14) Blood Urea Nitrogen 37mg/dL (8-26) Creatinine 2.1mg/dL (0.7-1.3) Estimated GFR (Cockcroft-Gault) 37.6 Glucose Level 135mg/dL (70-99) Calcium Level 9.0mg/dL (8.5-10.1) Troponin I Quantitative 0.072ng/mL (0.000-0.055) 0.077ng/mL (0.000-0.055) Glucose (Fingerstick) 98mg/dL (70-99) 154mg/dL (70-99) Test 01/28/17 22:00 01/29/17 05:00 01/29/17 08:07 Troponin I Quantitative 0.069ng/mL (0.000-0.055) White Blood Count 6.7x10^3/uL (4.0-11.0) Red Blood Count 4.92x10^6/uL (4.30-5.70) Hemoglobin 13.1g/dL (13.0-17.5) Hematocrit 41.2% (39.0-53.0) Mean Corpuscular Volume 84fL (79-100) Mean Corpuscular Hemoglobin 27pg (25-35) Mean Corpuscular Hemoglobin Concent 32g/dL (31-37) Red Cell Distribution Width 14.7% (11.5-14.5) Platelet Count 146x10^3/uL (140-400) Neutrophils (%) (Auto) 41% (31-73) Lymphocytes (%) (Auto) 36% (24-48) Monocytes (%) (Auto) 16% (0-9) Eosinophils (%) (Auto) 6% (0-3) Basophils (%) (Auto) 0% (0-3) Neutrophils # (Auto) 2.8x10^3uL (1.8-7.7) Lymphocytes # (Auto) 2.4x10^3/uL (1.0-4.8) Monocytes # (Auto) 1.1x10^3/uL (0.0-1.1) Eosinophils # (Auto) 0.4x10^3/uL (0.0-0.7) Basophils # (Auto) 0.0x10^3/uL (0.0-0.2) Sodium Level 144mmol/L (136-145) Potassium Level 4.9mmol/L (3.5-5.1) Chloride Level 108mmol/L (98-107) Carbon Dioxide Level 26mmol/L (21-32) Anion Gap 10 (6-14) Blood Urea Nitrogen 34mg/dL (8-26) Creatinine 2.1mg/dL (0.7-1.3) Estimated GFR (Cockcroft-Gault) 37.6 Glucose Level 57mg/dL (70-99) Calcium Level 9.0mg/dL (8.5-10.1) Triglycerides Level 126mg/dL (0-150) Cholesterol Level 103mg/dL (0-200) LDL Cholesterol, Calculated 52mg/dL (0-100) VLDL Cholesterol, Calculated 25mg/dL (0-40) HDL Cholesterol 26mg/dL (40-60) Cholesterol/HDL Ratio 4.0 Glucose (Fingerstick) 116mg/dL (70-99) Physical Exam HEENT: Neck Supple W Full Motion Chest: Symmetric LUNGS: Other (basilar crackles posterior) Heart: S1S2, RRR, no thrills, no rubs, other (tele: SR) Abdomen: Soft N/T Extremities: Other (mild LE edema) Neurology: alert, oriented, follow commands Assessment Assessment 1. left shoulder pain not clearly anginal in etiology & suspect musculoskeletal troponin peaked @ 0.07 in the setting of CKD LVEF stable @ 20-25% 2. CAD with previous CABG, LM stenting and redo CABG continue medical management with ASA, beta-blockers, long acting nitrates and ACEI 3. ischemic cardiomyopathy depressed LVEF @ 15-20% in 2014; 20-25% on repeat echo; 01/27/2017 has ICD for prevention of SCD - [employer] - interrogated: 14 beats of NSVT that were about 4 beats in duration - no ATP or shock battery voltage - 2.63 V; impedances and thresholds not significantly changed from 07/2016 continue medical management as in #2 4. chronic systolic heart failure reasonably compensated 5. HTN not controlled - will uptitrate BB 6. HLD LDLs = 52 continue statin therapy IWONA HEIN APRN Jan 29, 2017 09:46
[2017-01-29] MEDS ORDERED: DOCU-27 PO (10:18)
[2017-01-29] MEDS ORDERED: OXYC-323 PO (10:18)
[2017-01-29] MEDS ORDERED: LIDO700A4 TD (10:18)
--- NOTE | 2017-01-29 10:20 | PDOC ---
PROGRESS NOTES Chief Complaint Chief Complaint 1. left shoulder pain, seemingly reproducible on palpation - likely MSK in origin 2. Hx chronic systolic CHF 3. Hx Severe ICM: EF 20% CAD in the past with CABG. AICD in place. 4. HTN: controlled 5. HLP: statin 6. DM2: 7. CKD 3 - 8. Hx of AAA with repair History of Present Illness History of Present Illness feels better has f/u wiht PCP 02/07 Dc home Vitals Vitals Vital Signs Date Time Temp Pulse Resp B/P Pulse Ox O2 Delivery O2 Flow Rate FiO2 01/29/17 10:04 18 94 2.0 01/29/17 08:11 61 159/85 01/29/17 08:09 Nasal Cannula 01/29/17 07:30 98.1 98.1 Physical Exam General: Alert, Oriented X3, Cooperative, No acute distress Heart: Regular rate, Normal S1, Normal S2, Other (1-2/6 systolic murmur) Lungs: Clear Abdomen: Normal bowel sounds, Soft Extremities: No edema, Normal pulses (PT 1+ bilaterally) Skin: No rashes, No breakdown, No significant lesion Labs LABS Laboratory Tests Test 01/28/17 12:26 01/28/17 15:55 01/28/17 16:50 01/28/17 22:00 Glucose (Fingerstick) 98mg/dL (70-99) 154mg/dL (70-99) Troponin I Quantitative 0.077ng/mL (0.000-0.055) 0.069ng/mL (0.000-0.055) Test 01/29/17 05:00 01/29/17 08:07 White Blood Count 6.7x10^3/uL (4.0-11.0) Red Blood Count 4.92x10^6/uL (4.30-5.70) Hemoglobin 13.1g/dL (13.0-17.5) Hematocrit 41.2% (39.0-53.0) Mean Corpuscular Volume 84fL (79-100) Mean Corpuscular Hemoglobin 27pg (25-35) Mean Corpuscular Hemoglobin Concent 32g/dL (31-37) Red Cell Distribution Width 14.7% (11.5-14.5) Platelet Count 146x10^3/uL (140-400) Neutrophils (%) (Auto) 41% (31-73) Lymphocytes (%) (Auto) 36% (24-48) Monocytes (%) (Auto) 16% (0-9) Eosinophils (%) (Auto) 6% (0-3) Basophils (%) (Auto) 0% (0-3) Neutrophils # (Auto) 2.8x10^3uL (1.8-7.7) Lymphocytes # (Auto) 2.4x10^3/uL (1.0-4.8) Monocytes # (Auto) 1.1x10^3/uL (0.0-1.1) Eosinophils # (Auto) 0.4x10^3/uL (0.0-0.7) Basophils # (Auto) 0.0x10^3/uL (0.0-0.2) Sodium Level 144mmol/L (136-145) Potassium Level 4.9mmol/L (3.5-5.1) Chloride Level 108mmol/L (98-107) Carbon Dioxide Level 26mmol/L (21-32) Anion Gap 10 (6-14) Blood Urea Nitrogen 34mg/dL (8-26) Creatinine 2.1mg/dL (0.7-1.3) Estimated GFR (Cockcroft-Gault) 37.6 Glucose Level 57mg/dL (70-99) Calcium Level 9.0mg/dL (8.5-10.1) Triglycerides Level 126mg/dL (0-150) Cholesterol Level 103mg/dL (0-200) LDL Cholesterol, Calculated 52mg/dL (0-100) VLDL Cholesterol, Calculated 25mg/dL (0-40) HDL Cholesterol 26mg/dL (40-60) Cholesterol/HDL Ratio 4.0 Glucose (Fingerstick) 116mg/dL (70-99) Assessment and Plan Assessmemt and Plan Problems Medical Problems: (1) Chest pain Status: Acute Problems: Comment Review of Relevant I have reviewed the following items broderick (where applicable) has been applied. Labs Laboratory Tests Test 01/28/17 09:15 01/28/17 09:45 01/28/17 12:26 01/28/17 15:55 White Blood Count 7.6x10^3/uL (4.0-11.0) Red Blood Count 5.14x10^6/uL (4.30-5.70) Hemoglobin 14.0g/dL (13.0-17.5) Hematocrit 43.2% (39.0-53.0) Mean Corpuscular Volume 84fL (79-100) Mean Corpuscular Hemoglobin 27pg (25-35) Mean Corpuscular Hemoglobin Concent 32g/dL (31-37) Red Cell Distribution Width 15.2% (11.5-14.5) Platelet Count 171x10^3/uL (140-400) Neutrophils (%) (Auto) 48% (31-73) Lymphocytes (%) (Auto) 30% (24-48) Monocytes (%) (Auto) 16% (0-9) Eosinophils (%) (Auto) 6% (0-3) Basophils (%) (Auto) 1% (0-3) Neutrophils # (Auto) 3.6x10^3uL (1.8-7.7) Lymphocytes # (Auto) 2.3x10^3/uL (1.0-4.8) Monocytes # (Auto) 1.2x10^3/uL (0.0-1.1) Eosinophils # (Auto) 0.4x10^3/uL (0.0-0.7) Basophils # (Auto) 0.1x10^3/uL (0.0-0.2) Sodium Level 143mmol/L (136-145) Potassium Level 4.9mmol/L (3.5-5.1) Chloride Level 107mmol/L (98-107) Carbon Dioxide Level 26mmol/L (21-32) Anion Gap 10 (6-14) Blood Urea Nitrogen 37mg/dL (8-26) Creatinine 2.1mg/dL (0.7-1.3) Estimated GFR (Cockcroft-Gault) 37.6 Glucose Level 135mg/dL (70-99) Calcium Level 9.0mg/dL (8.5-10.1) Troponin I Quantitative 0.072ng/mL (0.000-0.055) 0.077ng/mL (0.000-0.055) Glucose (Fingerstick) 98mg/dL (70-99) Test 01/28/17 16:50 01/28/17 22:00 01/29/17 05:00 01/29/17 08:07 Glucose (Fingerstick) 154mg/dL (70-99) 116mg/dL (70-99) Troponin I Quantitative 0.069ng/mL (0.000-0.055) White Blood Count 6.7x10^3/uL (4.0-11.0) Red Blood Count 4.92x10^6/uL (4.30-5.70) Hemoglobin 13.1g/dL (13.0-17.5) Hematocrit 41.2% (39.0-53.0) Mean Corpuscular Volume 84fL (79-100) Mean Corpuscular Hemoglobin 27pg (25-35) Mean Corpuscular Hemoglobin Concent 32g/dL (31-37) Red Cell Distribution Width 14.7% (11.5-14.5) Platelet Count 146x10^3/uL (140-400) Neutrophils (%) (Auto) 41% (31-73) Lymphocytes (%) (Auto) 36% (24-48) Monocytes (%) (Auto) 16% (0-9) Eosinophils (%) (Auto) 6% (0-3) Basophils (%) (Auto) 0% (0-3) Neutrophils # (Auto) 2.8x10^3uL (1.8-7.7) Lymphocytes # (Auto) 2.4x10^3/uL (1.0-4.8) Monocytes # (Auto) 1.1x10^3/uL (0.0-1.1) Eosinophils # (Auto) 0.4x10^3/uL (0.0-0.7) Basophils # (Auto) 0.0x10^3/uL (0.0-0.2) Sodium Level 144mmol/L (136-145) Potassium Level 4.9mmol/L (3.5-5.1) Chloride Level 108mmol/L (98-107) Carbon Dioxide Level 26mmol/L (21-32) Anion Gap 10 (6-14) Blood Urea Nitrogen 34mg/dL (8-26) Creatinine 2.1mg/dL (0.7-1.3) Estimated GFR (Cockcroft-Gault) 37.6 Glucose Level 57mg/dL (70-99) Calcium Level 9.0mg/dL (8.5-10.1) Triglycerides Level 126mg/dL (0-150) Cholesterol Level 103mg/dL (0-200) LDL Cholesterol, Calculated 52mg/dL (0-100) VLDL Cholesterol, Calculated 25mg/dL (0-40) HDL Cholesterol 26mg/dL (40-60) Cholesterol/HDL Ratio 4.0 Laboratory Tests Test 01/28/17 12:26 01/28/17 15:55 01/28/17 16:50 01/28/17 22:00 Glucose (Fingerstick) 98mg/dL (70-99) 154mg/dL (70-99) Troponin I Quantitative 0.077ng/mL (0.000-0.055) 0.069ng/mL (0.000-0.055) Test 01/29/17 05:00 01/29/17 08:07 White Blood Count 6.7x10^3/uL (4.0-11.0) Red Blood Count 4.92x10^6/uL (4.30-5.70) Hemoglobin 13.1g/dL (13.0-17.5) Hematocrit 41.2% (39.0-53.0) Mean Corpuscular Volume 84fL (79-100) Mean Corpuscular Hemoglobin 27pg (25-35) Mean Corpuscular Hemoglobin Concent 32g/dL (31-37) Red Cell Distribution Width 14.7% (11.5-14.5) Platelet Count 146x10^3/uL (140-400) Neutrophils (%) (Auto) 41% (31-73) Lymphocytes (%) (Auto) 36% (24-48) Monocytes (%) (Auto) 16% (0-9) Eosinophils (%) (Auto) 6% (0-3) Basophils (%) (Auto) 0% (0-3) Neutrophils # (Auto) 2.8x10^3uL (1.8-7.7) Lymphocytes # (Auto) 2.4x10^3/uL (1.0-4.8) Monocytes # (Auto) 1.1x10^3/uL (0.0-1.1) Eosinophils # (Auto) 0.4x10^3/uL (0.0-0.7) Basophils # (Auto) 0.0x10^3/uL (0.0-0.2) Sodium Level 144mmol/L (136-145) Potassium Level 4.9mmol/L (3.5-5.1) Chloride Level 108mmol/L (98-107) Carbon Dioxide Level 26mmol/L (21-32) Anion Gap 10 (6-14) Blood Urea Nitrogen 34mg/dL (8-26) Creatinine 2.1mg/dL (0.7-1.3) Estimated GFR (Cockcroft-Gault) 37.6 Glucose Level 57mg/dL (70-99) Calcium Level 9.0mg/dL (8.5-10.1) Triglycerides Level 126mg/dL (0-150) Cholesterol Level 103mg/dL (0-200) LDL Cholesterol, Calculated 52mg/dL (0-100) VLDL Cholesterol, Calculated 25mg/dL (0-40) HDL Cholesterol 26mg/dL (40-60) Cholesterol/HDL Ratio 4.0 Glucose (Fingerstick) 116mg/dL (70-99) Medications Current Medications Morphine Sulfate 4 mg 1X ONCE IV Last administered on 01/28/17 09:52; Start 01/28/17 at 09:45; Stop 01/28/17 at 09:47; Status DC Ondansetron HCl (Zofran) 4 mg PRN Q6HRS PRN IV NAUSEA/VOMITING; Start 01/28/17 at 11:15 Acetaminophen (Tylenol) 500 mg PRN Q6HRS PRN PO MILD PAIN / TEMP Last administered on 01/29/17 05:31; Start 01/28/17 at 11:15 Morphine Sulfate 2 mg PRN Q2HR PRN IV PAIN Last administered on 01/29/17 08:09 ; Start 01/28/17 at 11:15 Hydralazine HCl (Apresoline) 10 mg PRN Q4HRS PRN IVP ELEVATED BP, SEE COMMENTS ; Start 01/28/17 at 11:15 Aspirin (Ecotrin) 81 mg DAILY PO Last administered on 01/29/17 08:11; Start at 09:00 Carvedilol (Coreg) 12.5 mg BIDWMEALS PO Last administered on 01/29/17 08:11; Start 01/28/17 at 17:00; Stop 01/29/17 at 09:47; Status DC Clopidogrel Bisulfate (Plavix) 75 mg DAILY PO Last administered on 01/29/17 08 :10; Start 01/29/17 at 09:00 EZETIMIBE (Zetia) 10 mg DAILY PO Last administered on 01/29/17 08:12; Start at 09:00 Insulin Aspart (Novolog) 12 units TIDAC SQ Last administered on 01/29/17 08:22 ; Start 01/28/17 at 11:30 Isosorbide Mononitrate (Imdur) 30 mg DAILY PO Last administered on 01/29/17 08 :11; Start 01/29/17 at 09:00 Lisinopril (Prinivil) 10 mg DAILY PO Last administered on 01/29/17 08:10; Start 01/29/17 at 09:00 Potassium Chloride (Klor-Con) 20 meq DAILY PO Last administered on 01/29/17 08 :12; Start 01/29/17 at 09:00 Atorvastatin Calcium (Lipitor) 80 mg QHS PO Last administered on 01/28/17 21: 02; Start 01/28/17 at 21:00 Insulin Aspart (Novolog) 0-9 UNITS TIDWMEALS SQ ; Start 01/28/17 at 12:00 Dextrose 12.5 gm PRN Q15MIN PRN IV SEE COMMENTS; Start 01/28/17 at 11:30 Prednisone (Prednisone) 10 mg DAILY PO Last administered on 01/29/17 08:11; Start 01/29/17 at 09:00 Pantoprazole Sodium (Protonix) 40 mg DAILYAC PO Last administered on 01/29/17 08:10; Start 01/29/17 at 07:30 Lidocaine (Lidoderm) 1 patch DAILY TD Last administered on 01/29/17 08:09; Start 01/29/17 at 09:00 Carvedilol (Coreg) 25 mg BIDWMEALS PO ; Start 01/29/17 at 17:00 Active Scripts Active Percocet 5-325 Mg Tablet (Oxycodone/Acetaminophen) 1 Each Tablet 1 Tab PO QID PRN Novolog Flexpen (Insulin Aspart) 300 Units/3 Ml Insuln.pen 12 Units SQ TIDAC Reported Klor-Con M20 (Potassium Chloride) 20 Meq Tab.er.prt 20 Meq PO DAILY Aspir 81 (Aspirin) 81 Mg Tablet.dr 81 Mg PO DAILY Clopidogrel (Clopidogrel Bisulfate) 75 Mg Tablet 75 Mg PO DAILY Crestor (Rosuvastatin Calcium) 40 Mg Tablet 40 Mg PO HS Lisinopril 10 Mg Tablet 10 Mg PO DAILY Zetia (Ezetimibe) 10 Mg Tablet 10 Mg PO DAILY Carvedilol 12.5 Mg Tablet 12.5 Mg PO BID Isosorbide Mononitrate Er (Isosorbide Mononitrate) 30 Mg Tab.er.24h 30 Mg PO DAILY Vitals/I & O Vital Sign - Last 24 Hours 01/28/17 01/28/17 01/28/17 01/28/17 10:24 10:54 11:24 12:15 Pulse 60 60 58 Resp 16 B/P 155/73 162/74 174/77 Pulse Ox 91 91 94 O2 Delivery Room Air Room Air Nasal Cannula O2 Flow Rate 2 2.0 01/28/17 01/28/17 01/28/17 01/28/17 12:33 15:30 17:14 19:20 Temp 97.8 97.9 97.6 97.8 97.9 97.6 Pulse 72 59 59 60 Resp B/P 168/93 160/79 160/79 137/68 Pulse Ox 95 95 93 O2 Delivery Nasal Cannula Nasal Cannula Room Air O2 Flow Rate 2.0 2.0 01/28/17 01/28/17 01/28/17 01/28/17 19:25 19:32 20:14 23:41 Temp 97.7 97.7 Pulse 59 Resp 16 21 B/P 137/65 Pulse Ox 96 O2 Delivery Room Air Room Air Room Air O2 Flow Rate 2.0 2.0 01/29/17 01/29/17 01/29/17 01/29/17 03:05 07:30 08:00 08:09 Temp 98.0 98.1 98.0 98.1 Pulse 64 61 Resp 22 18 B/P 128/69 159/85 Pulse Ox 94 95 94 O2 Delivery Room Air Nasal Cannula Nasal Cannula O2 Flow Rate 2.0 2.0 2.0 01/29/17 01/29/17 01/29/17 01/29/17 08:10 08:11 08:11 10:04 Pulse 66 61 61 Resp 18 B/P 159/85 159/85 159/85 Pulse Ox 94 O2 Flow Rate 2.0 Intake and Output 01/28/17 01/28/17 01/29/17 15:00 23:00 07:00 Intake Total 950 ml 300 ml Output Total 200 ml Balance 750 ml 300 ml PAKO BARKER MD Jan 29, 2017 10:20
--- NOTE | 2017-01-29 10:35 | PDOC ---
CARDIO Progress Notes Subjective Subjective: No Chest Pain, No shortness of breath, No Palpitations, No Dizziness, Other (Pt seen and examined. No complaints. Anxious to go home. 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 reviewed.) Vitals Vitals Vital Signs Date Time Temp Pulse Resp B/P Pulse Ox O2 Delivery O2 Flow Rate FiO2 01/29/17 10:04 18 94 2.0 01/29/17 08:11 61 159/85 01/29/17 08:09 Nasal Cannula 01/29/17 07:30 98.1 98.1 Weight Weight [ ] Input and Output Intake and Output Intake and Output 01/29/17 07:00 Intake Total 1250 ml Output Total 200 ml Balance 1050 ml Intake Oral 1250 ml Output Urine Total 200 ml # Voids 1 Laboratory Labs Laboratory Tests Test 01/28/17 12:26 01/28/17 15:55 01/28/17 16:50 01/28/17 22:00 Glucose (Fingerstick) 98mg/dL (70-99) 154mg/dL (70-99) Troponin I Quantitative 0.077ng/mL (0.000-0.055) 0.069ng/mL (0.000-0.055) Test 01/29/17 05:00 01/29/17 08:07 White Blood Count 6.7x10^3/uL (4.0-11.0) Red Blood Count 4.92x10^6/uL (4.30-5.70) Hemoglobin 13.1g/dL (13.0-17.5) Hematocrit 41.2% (39.0-53.0) Mean Corpuscular Volume 84fL (79-100) Mean Corpuscular Hemoglobin 27pg (25-35) Mean Corpuscular Hemoglobin Concent 32g/dL (31-37) Red Cell Distribution Width 14.7% (11.5-14.5) Platelet Count 146x10^3/uL (140-400) Neutrophils (%) (Auto) 41% (31-73) Lymphocytes (%) (Auto) 36% (24-48) Monocytes (%) (Auto) 16% (0-9) Eosinophils (%) (Auto) 6% (0-3) Basophils (%) (Auto) 0% (0-3) Neutrophils # (Auto) 2.8x10^3uL (1.8-7.7) Lymphocytes # (Auto) 2.4x10^3/uL (1.0-4.8) Monocytes # (Auto) 1.1x10^3/uL (0.0-1.1) Eosinophils # (Auto) 0.4x10^3/uL (0.0-0.7) Basophils # (Auto) 0.0x10^3/uL (0.0-0.2) Sodium Level 144mmol/L (136-145) Potassium Level 4.9mmol/L (3.5-5.1) Chloride Level 108mmol/L (98-107) Carbon Dioxide Level 26mmol/L (21-32) Anion Gap 10 (6-14) Blood Urea Nitrogen 34mg/dL (8-26) Creatinine 2.1mg/dL (0.7-1.3) Estimated GFR (Cockcroft-Gault) 37.6 Glucose Level 57mg/dL (70-99) Calcium Level 9.0mg/dL (8.5-10.1) Triglycerides Level 126mg/dL (0-150) Cholesterol Level 103mg/dL (0-200) LDL Cholesterol, Calculated 52mg/dL (0-100) VLDL Cholesterol, Calculated 25mg/dL (0-40) HDL Cholesterol 26mg/dL (40-60) Cholesterol/HDL Ratio 4.0 Glucose (Fingerstick) 116mg/dL (70-99) Physical Exam HEENT: Neck Supple W Full Motion Chest: Symmetric LUNGS: Other (basilar crackles posterior) Heart: murmurs (HS 1/6 at apex to axilla), no jug vein distention, other ( Diminished PMI) Abdomen: Soft N/T Extremities: Other (trace pretibial edema) Neurology: alert, oriented, follow commands Diagnosis Diagnosis: Congestive Heart Failure (Acute on Chronic), Other (Non-cardiac chest pain; non-ischemic troponin elevation) Comment: Essential hypertension Plan Plan Agree with GERHARD Swift's plan. Agree with increase in beta anjali. 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 INÉS BAILEY DO Jan 29, 2017 10:35
[2017-01-29 11:20] VITALS: BP 139/65
--- NOTE | 2017-01-29 11:42 | RAD ---
Exam performed: CT cervical spine without contrast. History: Neck and shoulder pain. Date of service: 01/29/17. Comparison: None available Technique: Contiguous helical acquisitions are obtained through the cervical spine without IV contrast. Sagittal and coronal reformatted images are obtained and reviewed. Findings: Normal sagittal alignment is preserved. The vertebral body heights are maintained. There is narrowing of several intervertebral disc spaces with diffuse osteophytic spurring. No acute compression fracture. No prevertebral soft tissue swelling is identified. There are multilevel apophyseal joint hypertrophic changes. Axial imaging at. Intervertebral disc levels are as follows. C2/3 demonstrates mild disc osteophyte complex. Bilateral facet hypertrophic changes, no significant central canal or neural foramen stenosis. C3/4 demonstrates a disc osteophyte complex causing moderate central canal stenosis. There is mild to moderate left neural foramen stenosis. C4/5 demonstrates mild disc osteophyte complex. No central canal or neural foramen stenosis seen. C5/6 demonstrates mild disc osteophyte complex causing mild central canal stenosis. There is moderate to severe right and mild to moderate left neural foramen stenosis, this is accentuated due to bilateral facet atrophic changes and osteophyte encroaching on the neural foramen. C6/7 and C7/T1 demonstrates mild disc osteophyte right complex. No significant central canal or neural foramen stenosis seen. Large emphysematous bolus seen in the right apex. The airway appears preserved. Impression: Multilevel disc degenerative changes involving the cervical spine as outlined above. Please see above for discussion at each level. PQRS Compliance Statement: One or more of the following individualized dose reduction techniques were utilized for this examination: 1. Automated exposure control 2. Adjustment of the mA and/or kV according to patient size 3. Use of iterative reconstruction technique
--- NOTE | 2017-01-29 12:16 | PDOC ---
PROGRESS NOTES Subjective Subjective He feels better. Objective Objective Vital Signs Date Time Temp Pulse Resp B/P Pulse Ox O2 Delivery O2 Flow Rate FiO2 01/29/17 11:20 97.6 60 21 139/65 92 Room Air 97.6 01/29/17 10:04 2.0 Intake and Output 01/29/17 07:00 Intake Total 1250 ml Output Total 200 ml Balance 1050 ml Intake Oral 1250 ml Output Urine Total 200 ml # Voids 1 Physical Exam Physical Exam He is independent with mobility and continues with stiff shoulder and tenderness to palpation over left shoulder and he had x-ray and ct scan evidence of multi level DDD and DJD of cervical vertebrae which might be responsible for his neck stiffness.No clinical evidence of cervical radiculopathy or cervical spinal stenosis. Assessment Assessment Problems Medical Problems: (1) Chest pain Status: Acute (2) CHF (congestive heart failure) Status: Acute Plan Plan of Care Agree with plans for home with out patient follow up and to consider injecting his shoulder if his pain persists. Comment Review of Relevant I have reviewed the following items broderick (where applicable) has been applied. Labs Laboratory Tests Test 01/28/17 09:15 01/28/17 09:45 01/28/17 12:26 01/28/17 15:55 White Blood Count 7.6x10^3/uL (4.0-11.0) Red Blood Count 5.14x10^6/uL (4.30-5.70) Hemoglobin 14.0g/dL (13.0-17.5) Hematocrit 43.2% (39.0-53.0) Mean Corpuscular Volume 84fL (79-100) Mean Corpuscular Hemoglobin 27pg (25-35) Mean Corpuscular Hemoglobin Concent 32g/dL (31-37) Red Cell Distribution Width 15.2% (11.5-14.5) Platelet Count 171x10^3/uL (140-400) Neutrophils (%) (Auto) 48% (31-73) Lymphocytes (%) (Auto) 30% (24-48) Monocytes (%) (Auto) 16% (0-9) Eosinophils (%) (Auto) 6% (0-3) Basophils (%) (Auto) 1% (0-3) Neutrophils # (Auto) 3.6x10^3uL (1.8-7.7) Lymphocytes # (Auto) 2.3x10^3/uL (1.0-4.8) Monocytes # (Auto) 1.2x10^3/uL (0.0-1.1) Eosinophils # (Auto) 0.4x10^3/uL (0.0-0.7) Basophils # (Auto) 0.1x10^3/uL (0.0-0.2) Sodium Level 143mmol/L (136-145) Potassium Level 4.9mmol/L (3.5-5.1) Chloride Level 107mmol/L (98-107) Carbon Dioxide Level 26mmol/L (21-32) Anion Gap 10 (6-14) Blood Urea Nitrogen 37mg/dL (8-26) Creatinine 2.1mg/dL (0.7-1.3) Estimated GFR (Cockcroft-Gault) 37.6 Glucose Level 135mg/dL (70-99) Calcium Level 9.0mg/dL (8.5-10.1) Troponin I Quantitative 0.072ng/mL (0.000-0.055) 0.077ng/mL (0.000-0.055) Glucose (Fingerstick) 98mg/dL (70-99) Test 01/28/17 16:50 01/28/17 22:00 01/29/17 05:00 01/29/17 08:07 Glucose (Fingerstick) 154mg/dL (70-99) 116mg/dL (70-99) Troponin I Quantitative 0.069ng/mL (0.000-0.055) White Blood Count 6.7x10^3/uL (4.0-11.0) Red Blood Count 4.92x10^6/uL (4.30-5.70) Hemoglobin 13.1g/dL (13.0-17.5) Hematocrit 41.2% (39.0-53.0) Mean Corpuscular Volume 84fL (79-100) Mean Corpuscular Hemoglobin 27pg (25-35) Mean Corpuscular Hemoglobin Concent 32g/dL (31-37) Red Cell Distribution Width 14.7% (11.5-14.5) Platelet Count 146x10^3/uL (140-400) Neutrophils (%) (Auto) 41% (31-73) Lymphocytes (%) (Auto) 36% (24-48) Monocytes (%) (Auto) 16% (0-9) Eosinophils (%) (Auto) 6% (0-3) Basophils (%) (Auto) 0% (0-3) Neutrophils # (Auto) 2.8x10^3uL (1.8-7.7) Lymphocytes # (Auto) 2.4x10^3/uL (1.0-4.8) Monocytes # (Auto) 1.1x10^3/uL (0.0-1.1) Eosinophils # (Auto) 0.4x10^3/uL (0.0-0.7) Basophils # (Auto) 0.0x10^3/uL (0.0-0.2) Sodium Level 144mmol/L (136-145) Potassium Level 4.9mmol/L (3.5-5.1) Chloride Level 108mmol/L (98-107) Carbon Dioxide Level 26mmol/L (21-32) Anion Gap 10 (6-14) Blood Urea Nitrogen 34mg/dL (8-26) Creatinine 2.1mg/dL (0.7-1.3) Estimated GFR (Cockcroft-Gault) 37.6 Glucose Level 57mg/dL (70-99) Calcium Level 9.0mg/dL (8.5-10.1) Triglycerides Level 126mg/dL (0-150) Cholesterol Level 103mg/dL (0-200) LDL Cholesterol, Calculated 52mg/dL (0-100) VLDL Cholesterol, Calculated 25mg/dL (0-40) HDL Cholesterol 26mg/dL (40-60) Cholesterol/HDL Ratio 4.0 Test 01/29/17 11:24 Glucose (Fingerstick) 171mg/dL (70-99) Laboratory Tests Test 01/28/17 12:26 01/28/17 15:55 01/28/17 16:50 01/28/17 22:00 Glucose (Fingerstick) 98mg/dL (70-99) 154mg/dL (70-99) Troponin I Quantitative 0.077ng/mL (0.000-0.055) 0.069ng/mL (0.000-0.055) Test 01/29/17 05:00 01/29/17 08:07 01/29/17 11:24 White Blood Count 6.7x10^3/uL (4.0-11.0) Red Blood Count 4.92x10^6/uL (4.30-5.70) Hemoglobin 13.1g/dL (13.0-17.5) Hematocrit 41.2% (39.0-53.0) Mean Corpuscular Volume 84fL (79-100) Mean Corpuscular Hemoglobin 27pg (25-35) Mean Corpuscular Hemoglobin Concent 32g/dL (31-37) Red Cell Distribution Width 14.7% (11.5-14.5) Platelet Count 146x10^3/uL (140-400) Neutrophils (%) (Auto) 41% (31-73) Lymphocytes (%) (Auto) 36% (24-48) Monocytes (%) (Auto) 16% (0-9) Eosinophils (%) (Auto) 6% (0-3) Basophils (%) (Auto) 0% (0-3) Neutrophils # (Auto) 2.8x10^3uL (1.8-7.7) Lymphocytes # (Auto) 2.4x10^3/uL (1.0-4.8) Monocytes # (Auto) 1.1x10^3/uL (0.0-1.1) Eosinophils # (Auto) 0.4x10^3/uL (0.0-0.7) Basophils # (Auto) 0.0x10^3/uL (0.0-0.2) Sodium Level 144mmol/L (136-145) Potassium Level 4.9mmol/L (3.5-5.1) Chloride Level 108mmol/L (98-107) Carbon Dioxide Level 26mmol/L (21-32) Anion Gap 10 (6-14) Blood Urea Nitrogen 34mg/dL (8-26) Creatinine 2.1mg/dL (0.7-1.3) Estimated GFR (Cockcroft-Gault) 37.6 Glucose Level 57mg/dL (70-99) Calcium Level 9.0mg/dL (8.5-10.1) Triglycerides Level 126mg/dL (0-150) Cholesterol Level 103mg/dL (0-200) LDL Cholesterol, Calculated 52mg/dL (0-100) VLDL Cholesterol, Calculated 25mg/dL (0-40) HDL Cholesterol 26mg/dL (40-60) Cholesterol/HDL Ratio 4.0 Glucose (Fingerstick) 116mg/dL (70-99) 171mg/dL (70-99) Medications Current Medications Morphine Sulfate 4 mg 1X ONCE IV Last administered on 01/28/17 09:52; Start 01/28/17 at 09:45; Stop 01/28/17 at 09:47; Status DC Ondansetron HCl (Zofran) 4 mg PRN Q6HRS PRN IV NAUSEA/VOMITING; Start 01/28/17 at 11:15 Acetaminophen (Tylenol) 500 mg PRN Q6HRS PRN PO MILD PAIN / TEMP Last administered on 01/29/17 05:31; Start 01/28/17 at 11:15 Morphine Sulfate 2 mg PRN Q2HR PRN IV PAIN Last administered on 01/29/17 08:09 ; Start 01/28/17 at 11:15 Hydralazine HCl (Apresoline) 10 mg PRN Q4HRS PRN IVP ELEVATED BP, SEE COMMENTS ; Start 01/28/17 at 11:15 Aspirin (Ecotrin) 81 mg DAILY PO Last administered on 01/29/17 08:11; Start at 09:00 Carvedilol (Coreg) 12.5 mg BIDWMEALS PO Last administered on 01/29/17 08:11; Start 01/28/17 at 17:00; Stop 01/29/17 at 09:47; Status DC Clopidogrel Bisulfate (Plavix) 75 mg DAILY PO Last administered on 01/29/17 08 :10; Start 01/29/17 at 09:00 EZETIMIBE (Zetia) 10 mg DAILY PO Last administered on 01/29/17 08:12; Start at 09:00 Insulin Aspart (Novolog) 12 units TIDAC SQ Last administered on 01/29/17 08:22 ; Start 01/28/17 at 11:30 Isosorbide Mononitrate (Imdur) 30 mg DAILY PO Last administered on 01/29/17 08 :11; Start 01/29/17 at 09:00 Lisinopril (Prinivil) 10 mg DAILY PO Last administered on 01/29/17 08:10; Start 01/29/17 at 09:00 Potassium Chloride (Klor-Con) 20 meq DAILY PO Last administered on 01/29/17 08 :12; Start 01/29/17 at 09:00 Atorvastatin Calcium (Lipitor) 80 mg QHS PO Last administered on 01/28/17 21: 02; Start 01/28/17 at 21:00 Insulin Aspart (Novolog) 0-9 UNITS TIDWMEALS SQ ; Start 01/28/17 at 12:00 Dextrose 12.5 gm PRN Q15MIN PRN IV SEE COMMENTS; Start 01/28/17 at 11:30 Prednisone (Prednisone) 10 mg DAILY PO Last administered on 01/29/17 08:11; Start 01/29/17 at 09:00 Pantoprazole Sodium (Protonix) 40 mg DAILYAC PO Last administered on 01/29/17 08:10; Start 01/29/17 at 07:30 Lidocaine (Lidoderm) 1 patch DAILY TD Last administered on 01/29/17 08:09; Start 01/29/17 at 09:00 Carvedilol (Coreg) 25 mg BIDWMEALS PO ; Start 01/29/17 at 17:00 Active Scripts Active Percocet 5-325 Mg Tablet (Oxycodone/Acetaminophen) 1 Each Tablet 1 Tab PO QID PRN Novolog Flexpen (Insulin Aspart) 300 Units/3 Ml Insuln.pen 12 Units SQ TIDAC Reported Klor-Con M20 (Potassium Chloride) 20 Meq Tab.er.prt 20 Meq PO DAILY Aspir 81 (Aspirin) 81 Mg Tablet.dr 81 Mg PO DAILY Clopidogrel (Clopidogrel Bisulfate) 75 Mg Tablet 75 Mg PO DAILY Crestor (Rosuvastatin Calcium) 40 Mg Tablet 40 Mg PO HS Lisinopril 10 Mg Tablet 10 Mg PO DAILY Zetia (Ezetimibe) 10 Mg Tablet 10 Mg PO DAILY Carvedilol 12.5 Mg Tablet 12.5 Mg PO BID Isosorbide Mononitrate Er (Isosorbide Mononitrate) 30 Mg Tab.er.24h 30 Mg PO DAILY Vitals/I & O Vital Sign - Last 24 Hours 01/28/17 01/28/17 01/28/1717 12:15 12:33 15:30 17:14 Temp 97.8 97.9 97.8 97.9 Pulse 72 59 59 Resp 20 B/P 168/93 160/79 160/79 Pulse Ox 95 95 O2 Delivery Nasal Cannula Nasal Cannula O2 Flow Rate 2.0 2.0 2.0 01/28/17 01/28/17 01/28/17 01/28/17 19:20 19:25 19:32 20:14 Temp 97.6 97.6 Pulse 60 Resp 16 B/P 137/68 Pulse Ox 93 O2 Delivery Room Air Room Air Room Air O2 Flow Rate 2.0 2.0 01/28/17 01/29/17 01/29/17 01/29/17 23:41 03:05 07:30 08:00 Temp 97.7 98.0 98.1 97.7 98.0 98.1 Pulse 59 64 61 Resp B/P 137/65 128/69 159/85 Pulse Ox 96 94 95 O2 Delivery Room Air Room Air Nasal Cannula O2 Flow Rate 2.0 2.0 01/29/17 01/29/17 01/29/17 01/29/17 08:09 08:10 08:11 08:11 Pulse 66 61 61 Resp 18 B/P 159/85 159/85 159/85 Pulse Ox 94 O2 Delivery Nasal Cannula O2 Flow Rate 2.0 01/29/17 01/29/17 10:04 11:20 Temp 97.6 97.6 Pulse 60 Resp B/P 139/65 Pulse Ox 94 92 O2 Delivery Room Air O2 Flow Rate 2.0 Intake and Output 01/28/17 01/28/17 01/29/17 15:00 23:00 07:00 Intake Total 950 ml 300 ml Output Total 200 ml Balance 750 ml 300 ml MARY VELÁSQUEZ MD Jan 29, 2017 12:16
[2017-01-29 14:19] VITALS: BP 140/64
[2017-01-29] MEDS ORDERED: CARVEDILOL 12.5 MG TABLET PO SCH (17:00)
[2017-01-29 17:57] VITALS: BP 140/64
--- NOTE | 2017-01-29 23:06 | PDOC2 ---
CONSULT Date of Consult Date of Consult DATE: 01/29/17 TIME: 23:05 Past Medical History Cardiovascular: CAD (CABG in 1999; LM stent 08/2012; redo CABG 2012), CHF ( NYHA 1-2; systolic), HTN, Hyperlipidemia, Other (carotid disease with KANDIS 50-69 % and LICA > 70% with moderate to severe vertebral disease bilaterally - 07/2016 ; NSVT with previous amiodarone therapy; PAD in RLE - declined evaluation; ischemic CMP with [employer] ICD) Pulmonary: No pertinent hx CENTRAL NERVOUS SYSTEM: Other GI: No pertinent hx Heme/Onc: No pertinent hx Hepatobiliary: No pertinent hx Psych: No pertinent hx Musculoskeletal: Osteoarthritis Infectious disease: No pertinent hx ENT: Other (blind in left eye) Renal/: Chronic renal insuff (stage 2) Endocrine: Diabetes (type II) Past Surgical History Past Surgical History: Pacemaker (ICD - medtronic), CABG (1999; redo X 4 - 01/09), Other (LM stent - 2011; AAA repair - 11/2012; left thoracentesis - 2012) Family History Family History: No Significant, Diabetes Social History Quit ALCOHOL: none Drugs: None Lives: Alone Current Problem List Problem List Problems Medical Problems: (1) Chest pain Status: Acute (2) CHF (congestive heart failure) Status: Acute Current Medications Current Medications Current Medications Morphine Sulfate 4 mg 1X ONCE IV Last administered on 01/28/17 09:52; Start 01/28/17 at 09:45; Stop 01/28/17 at 09:47; Status DC Ondansetron HCl (Zofran) 4 mg PRN Q6HRS PRN IV NAUSEA/VOMITING; Start 01/28/17 at 11:15; Stop 01/29/17 at 19:05; Status DC Acetaminophen (Tylenol) 500 mg PRN Q6HRS PRN PO MILD PAIN / TEMP Last administered on 01/29/17 05:31; Start 01/28/17 at 11:15; Stop 01/29/17 at 19:05 ; Status DC Morphine Sulfate 2 mg PRN Q2HR PRN IV PAIN Last administered on 01/29/17 08:09 ; Start 01/28/17 at 11:15; Stop 01/29/17 at 19:05; Status DC Hydralazine HCl (Apresoline) 10 mg PRN Q4HRS PRN IVP ELEVATED BP, SEE COMMENTS ; Start 01/28/17 at 11:15; Stop 01/29/17 at 19:05; Status DC Aspirin (Ecotrin) 81 mg DAILY PO Last administered on 01/29/17 08:11; Start at 09:00; Stop 01/29/17 at 19:05; Status DC Carvedilol (Coreg) 12.5 mg BIDWMEALS PO Last administered on 01/29/17 08:11; Start 01/28/17 at 17:00; Stop 01/29/17 at 09:47; Status DC Clopidogrel Bisulfate (Plavix) 75 mg DAILY PO Last administered on 01/29/17 08 :10; Start 01/29/17 at 09:00; Stop 01/29/17 at 19:05; Status DC EZETIMIBE (Zetia) 10 mg DAILY PO Last administered on 01/29/17 08:12; Start at 09:00; Stop 01/29/17 at 19:05; Status DC Insulin Aspart (Novolog) 12 units TIDAC SQ Last administered on 01/29/17 17:59 ; Start 01/28/17 at 11:30; Stop 01/29/17 at 19:05; Status DC Isosorbide Mononitrate (Imdur) 30 mg DAILY PO Last administered on 01/29/17 08 :11; Start 01/29/17 at 09:00; Stop 01/29/17 at 19:05; Status DC Lisinopril (Prinivil) 10 mg DAILY PO Last administered on 01/29/17 08:10; Start 01/29/17 at 09:00; Stop 01/29/17 at 19:05; Status DC Potassium Chloride (Klor-Con) 20 meq DAILY PO Last administered on 01/29/17 08 :12; Start 01/29/17 at 09:00; Stop 01/29/17 at 19:05; Status DC Atorvastatin Calcium (Lipitor) 80 mg QHS PO Last administered on 01/28/17 21: 02; Start 01/28/17 at 21:00; Stop 01/29/17 at 19:05; Status DC Insulin Aspart (Novolog) 0-9 UNITS TIDWMEALS SQ Last administered on 01/29/17 18:00; Start 01/28/17 at 12:00; Stop 01/29/17 at 19:05; Status DC Dextrose 12.5 gm PRN Q15MIN PRN IV SEE COMMENTS; Start 01/28/17 at 11:30; Stop 01/29/17 at 19:05; Status DC Prednisone (Prednisone) 10 mg DAILY PO Last administered on 01/29/17 08:11; Start 01/29/17 at 09:00; Stop 01/29/17 at 19:05; Status DC Pantoprazole Sodium (Protonix) 40 mg DAILYAC PO Last administered on 01/29/17 08:10; Start 01/29/17 at 07:30; Stop 01/29/17 at 19:05; Status DC Lidocaine (Lidoderm) 1 patch DAILY TD Last administered on 01/29/17 08:09; Start 01/29/17 at 09:00; Stop 01/29/17 at 19:05; Status DC Carvedilol (Coreg) 25 mg BIDWMEALS PO Last administered on 01/29/17 17:57; Start 01/29/17 at 17:00; Stop 01/29/17 at 19:05; Status DC Active Scripts Active Colace (Docusate Sodium) 100 Mg Capsule 1 Cap PO BID Percocet 5-325 Mg Tablet (Oxycodone/Acetaminophen) 1 Each Tablet 1 Tab PO QID PRN Lidoderm (Lidocaine) 700 Mg Adh..patch 1 Patch TD DAILY Novolog Flexpen (Insulin Aspart) 300 Units/3 Ml Insuln.pen 12 Units SQ TIDAC Reported Klor-Con M20 (Potassium Chloride) 20 Meq Tab.er.prt 20 Meq PO DAILY Aspir 81 (Aspirin) 81 Mg Tablet.dr 81 Mg PO DAILY Clopidogrel (Clopidogrel Bisulfate) 75 Mg Tablet 75 Mg PO DAILY Crestor (Rosuvastatin Calcium) 40 Mg Tablet 40 Mg PO HS Lisinopril 10 Mg Tablet 10 Mg PO DAILY Zetia (Ezetimibe) 10 Mg Tablet 10 Mg PO DAILY Carvedilol 12.5 Mg Tablet 12.5 Mg PO BID Isosorbide Mononitrate Er (Isosorbide Mononitrate) 30 Mg Tab.er.24h 30 Mg PO DAILY Allergies Allergies: Coded Allergies: No Known Drug Allergies (Unverified , 10/30/14) Vitals VITALS Vital Signs Date Time Temp Pulse Resp B/P Pulse Ox O2 Delivery O2 Flow Rate FiO2 01/29/17 17:57 61 140/64 01/29/17 14:19 98.0 21 93 Room Air 98.0 01/29/17 10:04 2.0 Labs Labs Laboratory Tests Test 01/28/17 09:15 01/28/17 09:45 01/28/17 12:26 01/28/17 15:55 White Blood Count 7.6x10^3/uL (4.0-11.0) Red Blood Count 5.14x10^6/uL (4.30-5.70) Hemoglobin 14.0g/dL (13.0-17.5) Hematocrit 43.2% (39.0-53.0) Mean Corpuscular Volume 84fL (79-100) Mean Corpuscular Hemoglobin 27pg (25-35) Mean Corpuscular Hemoglobin Concent 32g/dL (31-37) Red Cell Distribution Width 15.2% (11.5-14.5) Platelet Count 171x10^3/uL (140-400) Neutrophils (%) (Auto) 48% (31-73) Lymphocytes (%) (Auto) 30% (24-48) Monocytes (%) (Auto) 16% (0-9) Eosinophils (%) (Auto) 6% (0-3) Basophils (%) (Auto) 1% (0-3) Neutrophils # (Auto) 3.6x10^3uL (1.8-7.7) Lymphocytes # (Auto) 2.3x10^3/uL (1.0-4.8) Monocytes # (Auto) 1.2x10^3/uL (0.0-1.1) Eosinophils # (Auto) 0.4x10^3/uL (0.0-0.7) Basophils # (Auto) 0.1x10^3/uL (0.0-0.2) Sodium Level 143mmol/L (136-145) Potassium Level 4.9mmol/L (3.5-5.1) Chloride Level 107mmol/L (98-107) Carbon Dioxide Level 26mmol/L (21-32) Anion Gap 10 (6-14) Blood Urea Nitrogen 37mg/dL (8-26) Creatinine 2.1mg/dL (0.7-1.3) Estimated GFR (Cockcroft-Gault) 37.6 Glucose Level 135mg/dL (70-99) Calcium Level 9.0mg/dL (8.5-10.1) Troponin I Quantitative 0.072ng/mL (0.000-0.055) 0.077ng/mL (0.000-0.055) Glucose (Fingerstick) 98mg/dL (70-99) Test 01/28/17 16:50 01/28/17 22:00 01/29/17 05:00 01/29/17 08:07 Glucose (Fingerstick) 154mg/dL (70-99) 116mg/dL (70-99) Troponin I Quantitative 0.069ng/mL (0.000-0.055) White Blood Count 6.7x10^3/uL (4.0-11.0) Red Blood Count 4.92x10^6/uL (4.30-5.70) Hemoglobin 13.1g/dL (13.0-17.5) Hematocrit 41.2% (39.0-53.0) Mean Corpuscular Volume 84fL (79-100) Mean Corpuscular Hemoglobin 27pg (25-35) Mean Corpuscular Hemoglobin Concent 32g/dL (31-37) Red Cell Distribution Width 14.7% (11.5-14.5) Platelet Count 146x10^3/uL (140-400) Neutrophils (%) (Auto) 41% (31-73) Lymphocytes (%) (Auto) 36% (24-48) Monocytes (%) (Auto) 16% (0-9) Eosinophils (%) (Auto) 6% (0-3) Basophils (%) (Auto) 0% (0-3) Neutrophils # (Auto) 2.8x10^3uL (1.8-7.7) Lymphocytes # (Auto) 2.4x10^3/uL (1.0-4.8) Monocytes # (Auto) 1.1x10^3/uL (0.0-1.1) Eosinophils # (Auto) 0.4x10^3/uL (0.0-0.7) Basophils # (Auto) 0.0x10^3/uL (0.0-0.2) Sodium Level 144mmol/L (136-145) Potassium Level 4.9mmol/L (3.5-5.1) Chloride Level 108mmol/L (98-107) Carbon Dioxide Level 26mmol/L (21-32) Anion Gap 10 (6-14) Blood Urea Nitrogen 34mg/dL (8-26) Creatinine 2.1mg/dL (0.7-1.3) Estimated GFR (Cockcroft-Gault) 37.6 Glucose Level 57mg/dL (70-99) Calcium Level 9.0mg/dL (8.5-10.1) Triglycerides Level 126mg/dL (0-150) Cholesterol Level 103mg/dL (0-200) LDL Cholesterol, Calculated 52mg/dL (0-100) VLDL Cholesterol, Calculated 25mg/dL (0-40) HDL Cholesterol 26mg/dL (40-60) Cholesterol/HDL Ratio 4.0 Test 01/29/17 11:24 01/29/17 16:55 Glucose (Fingerstick) 171mg/dL (70-99) 175mg/dL (70-99) Laboratory Tests Test 01/29/17 05:00 01/29/17 08:07 01/29/17 11:24 01/29/17 16:55 White Blood Count 6.7x10^3/uL (4.0-11.0) Red Blood Count 4.92x10^6/uL (4.30-5.70) Hemoglobin 13.1g/dL (13.0-17.5) Hematocrit 41.2% (39.0-53.0) Mean Corpuscular Volume 84fL (79-100) Mean Corpuscular Hemoglobin 27pg (25-35) Mean Corpuscular Hemoglobin Concent 32g/dL (31-37) Red Cell Distribution Width 14.7% (11.5-14.5) Platelet Count 146x10^3/uL (140-400) Neutrophils (%) (Auto) 41% (31-73) Lymphocytes (%) (Auto) 36% (24-48) Monocytes (%) (Auto) 16% (0-9) Eosinophils (%) (Auto) 6% (0-3) Basophils (%) (Auto) 0% (0-3) Neutrophils # (Auto) 2.8x10^3uL (1.8-7.7) Lymphocytes # (Auto) 2.4x10^3/uL (1.0-4.8) Monocytes # (Auto) 1.1x10^3/uL (0.0-1.1) Eosinophils # (Auto) 0.4x10^3/uL (0.0-0.7) Basophils # (Auto) 0.0x10^3/uL (0.0-0.2) Sodium Level 144mmol/L (136-145) Potassium Level 4.9mmol/L (3.5-5.1) Chloride Level 108mmol/L (98-107) Carbon Dioxide Level 26mmol/L (21-32) Anion Gap 10 (6-14) Blood Urea Nitrogen 34mg/dL (8-26) Creatinine 2.1mg/dL (0.7-1.3) Estimated GFR (Cockcroft-Gault) 37.6 Glucose Level 57mg/dL (70-99) Calcium Level 9.0mg/dL (8.5-10.1) Triglycerides Level 126mg/dL (0-150) Cholesterol Level 103mg/dL (0-200) LDL Cholesterol, Calculated 52mg/dL (0-100) VLDL Cholesterol, Calculated 25mg/dL (0-40) HDL Cholesterol 26mg/dL (40-60) Cholesterol/HDL Ratio 4.0 Glucose (Fingerstick) 116mg/dL (70-99) 171mg/dL (70-99) 175mg/dL (70-99) Assessment/Plan Assessment/Plan RENAL CONSULT / GRISEL Dictated. CKDAtypical CP See orders d/w pt F/U as out pt Thank you. BLAKE RECINOS MD Jan 29, 2017 23:06
--- NOTE | 2017-01-31 01:34 | CONS ---
DATE OF CONSULTATION: 01/29/2017 REASON FOR CONSULTATION: CKD. HISTORY OF PRESENT ILLNESS: The patient is a 71-year-old gentleman. -[place] descent. Hospitalized because of constant heavy chest pain with radiation to the left arm. So far the workup had indicated the chest pain to be atypical. He is denying any active chest pain, shortness of breath, diaphoresis. No palpitations. No lightheadedness, dizziness. He has been having this pain for the last several days unrelated to activity, not associated with any other symptoms. No nausea, vomiting or diarrhea. No cough, fevers or chills. No EKG changes were noted. Incidentally creatinine was 2.1, which appears to be unchanged over the last day or two. ____ . PAST MEDICAL HISTORY: Significant for: 1. Hypertension. 2. Coronary artery disease for which he has had stenting and a bypass done. 3. Morbid obesity. 4. Hyperlipidemia. 5. History of arrhythmias requiring a pacemaker and also has been on amiodarone. 6. Type 2 diabetes with nephropathy. 7. Degenerative joint disease. 8. Legal blindness of the left eye. PAST SURGICAL HISTORY: Significant for: 1. Coronary angiogram with stenting of the left main in 2011. 2. CABG x4 in 1999 with redo in 2012. 3. Abdominal aortic aneurysm repair in 2012. 4. Recurrent thoracentesis in 2012. 5. Pacemaker placement. REVIEW OF SYSTEMS: As above, otherwise negative on a 10-point scale. FAMILY HISTORY: Noncontributory for any premature heart disease or kidney failure. SOCIAL HISTORY: Quit smoking a few years ago, almost 30 pack years of smoking prior to that. No recreational drugs or alcohol. MEDICATIONS AND ALLERGIES: Reviewed. PHYSICAL EXAMINATION: GENERAL: Middle-aged gentleman in no distress. VITAL SIGNS: Stable. He is afebrile. HEENT: Pupils reactive. Tongue midline. NECK: Supple. LUNGS: Clear. No rhonchi, rales or wheezing. CARDIOVASCULAR: Regular rate and rhythm. No gallop, no rub. ABDOMEN: Portly, soft, nontender, no rebound or masses. Bowel sounds are active. EXTREMITIES: No edema. NEUROLOGIC: Nonfocal. LABORATORY DATA: Reviewed. IMPRESSION: 1. Chronic kidney disease, likely stage III from type 2 diabetes and hypertension. 2. Hypertension. 3. Diabetes with nephropathy. 4. Chest pain, atypical. 5. Morbid obesity. PLAN: At this point, would continue current treatment. Okay to discharge. Discussed with patient. He will maintain an outpatient followup. We will see him in the office. Thank you very much for the consultation. I appreciate the referral. We will follow the patient with you. BLAKE RECINOS MD DR: MIGUEL/arnav JOB#: [id number] / [id number]
== END 2017-01-29 19:05 | disposition home or self-care (01) | DRG 683 ==
LOC: ER 09:06 → 2 NORTH 09:55
PROVIDERS: ADMIT Internal Medicine; ATTEND Internal Medicine
DX: N17.9 Acute kidney failure, unspecified (principal); I13.0 Hypertensive heart and chronic kidney disease with heart failure and stage 1 through stage 4 chronic kidney disease, or unspecified chronic kidney disease; I50.22 Chronic systolic (congestive) heart failure; E11.22 Type 2 diabetes mellitus with diabetic chronic kidney disease; E78.5 Hyperlipidemia, unspecified; H54.42 Blindness, left eye, normal vision right eye; I25.10 Atherosclerotic heart disease of native coronary artery without angina pectoris; I25.5 Ischemic cardiomyopathy; N18.3 Chronic kidney disease, stage 3 (moderate); N15.9 Renal tubulo-interstitial disease, unspecified; M19.90 Unspecified osteoarthritis, unspecified site; R07.89 Other chest pain; I27.2 Other secondary pulmonary hypertension; M17.0 Bilateral primary osteoarthritis of knee; M77.9 Enthesopathy, unspecified; Z83.3 Family history of diabetes mellitus; Z95.1 Presence of aortocoronary bypass graft; Z79.899 Other long term (current) drug therapy; Z79.82 Long term (current) use of aspirin; Z95.810 Presence of automatic (implantable) cardiac defibrillator; Z86.79 Personal history of other diseases of the circulatory system
CPT/HCPCS: 36415; 71010; 72040; 72125; 80048; 80061; 82947; 84484; 85027; 93005; 93306; 94620; 96374; J1815; J2270; J7512; 99285-25

== ENCOUNTER → 2018-02-21 | Outpatient (CLI) | payer MEDICARE ==
[2018-02-21 14:48] LABS: NEGATIVE OBC STREP NEG; POSITIVE OBC STREP POS
[2018-02-21 15:01] LABS: INFLUENZA A PATIENT NEGATIVE (NEGATIVE); INFLUENZA B PATIENT NEGATIVE (NEGATIVE); OBC FLU VALID
== END | disposition home or self-care (01) ==
LOC: LAB 13:58
DX: J06.9 Acute upper respiratory infection, unspecified (principal); I12.9 Hypertensive chronic kidney disease with stage 1 through stage 4 chronic kidney disease, or unspecified chronic kidney disease; N18.3 Chronic kidney disease, stage 3 (moderate); E11.22 Type 2 diabetes mellitus with diabetic chronic kidney disease; E78.5 Hyperlipidemia, unspecified
CPT/HCPCS: 87070; 87804; 87804-59; 87880

== ENCOUNTER 2018-03-25 13:35 | Inpatient (IN) | payer MEDICARE ==
[2018-03-25 14:21] LABS: ADD MAN DIFF? NO; BASO # 0.1 x10^3/uL (0.0-0.2); BASO % 1 % (0-3); EOS # 0.2 x10^3/uL (0.0-0.7); EOS % 4 % (0-3); HEMATOCRIT 42.4 % (39.0-53.0); HEMOGLOBIN 13.8 g/dL (13.0-17.5); LYMPH # 1.9 x10^3/uL (1.0-4.8); LYMPH % 30 % (24-48); MEAN CORPUSCULAR HEMOGLOBIN 27 pg (25-35); MEAN CORPUSCULAR HGB CONC 32 g/dL (31-37); MEAN CORPUSCULAR VOLUME 84 fL (79-100); MONO # 0.9 x10^3/uL (0.0-1.1); MONO % 15 % (0-9); NEUT # 3.2 x10^3uL (1.8-7.7); NEUT % 51 % (31-73); PLATELET COUNT 157 x10^3/uL (140-400); RED BLOOD COUNT 5.08 x10^6/uL (4.30-5.70); RED CELL DISTRIBUTION WIDTH 14.9 % (11.5-14.5); WHITE BLOOD COUNT 6.4 x10^3/uL (4.0-11.0)
[2018-03-25 14:34] LABS: D-DIMER 0.73 ug/mlFEU (0.00-0.50)
[2018-03-25 14:36] LABS: ALK PHOS 58 U/L (46-116); ALT (SGPT) 23 U/L (16-63); ANION GAP 10 (6-14); AST (SGOT) 23 U/L (15-37); BLOOD UREA NITROGEN 48 mg/dL (8-26); BUN/CREATININE RATIO 18 (6-20); CALCIUM 8.7 mg/dL (8.5-10.1); CARBON DIOXIDE 23 mmol/L (21-32); CHLORIDE 105 mmol/L (98-107); CREATININE 2.6 mg/dL (0.7-1.3); GFR 29.3; GLUCOSE 159 mg/dL (70-99); SODIUM 138 mmol/L (136-145); TOTAL BILIRUBIN 0.4 mg/dL (0.2-1.0); TOTAL PROTEIN 7.9 g/dL (6.4-8.2)
[2018-03-25 14:38] LABS: TROPONINI 0.046 ng/mL (0.000-0.055)
[2018-03-25 14:40] LABS: POTASSIUM 6.2 mmol/L (3.5-5.1)
[2018-03-25] MEDS: IV NORMAL SALINE 1000ML BAG 1,000 ML IV (14:52)
[2018-03-25] MEDS: IV NORMAL SALINE 500ML BAG 500 ML IV (14:55)
[2018-03-25] MEDS ORDERED: ONDANSETRON PF 4 MG/2 ML VIAL. IV (15:00)
[2018-03-25] MEDS: DEXTROSE 50% 25 GM / 50ML DISP.SYRIN. IV (15:11)
[2018-03-25] MEDS: INSULIN REGULAR 100 UNIT/ML 3ML VIAL. IV (15:11)
[2018-03-25] MEDS: SODIUM BICARB ADULT 8.4% 50 MEQ/50 ML DISP.SYRIN. IV (15:12)
[2018-03-25] MEDS: SODIUM POLYSTYRENE SULFONATE 15 GM/60 ML ORAL.SUSP. PO (15:12)
[2018-03-25] MEDS: ACETAMINOPHEN 325 MG TABLET. PO (15:12)
[2018-03-25] MEDS: CALCIUM CHLORIDE 1,000 MG/10 ML DISP.SYRIN IV (15:12)
[2018-03-25 15:40] LABS: BILIRUBIN,URINE NEGATIVE (NEG); CLARITY,URINE CLEAR; COLOR,URINE YELLOW; GLUCOSE,URINE NEGATIVE (NEG); NITRITE,URINE NEGATIVE (NEG); PH,URINE 5.5; PROTEIN,URINE NEGATIVE (NEG-TRACE); UROBILINOGEN,URINE 0.2 mg/dL (0.2 mg/dL)
[2018-03-25 15:46] LABS: BACTERIA,URINE 0 /HPF (0-FEW); RBC,URINE 0 /HPF (0-2); SQUAMOUS EPITHELIAL CELL,UR OCC /LPF; WBC,URINE 0 /HPF (0-4)
[2018-03-25] MEDS ORDERED: DEXTROSE 50% 25 GM / 50ML DISP.SYRIN. IV ×2 (17:00→17:30)
[2018-03-25] MEDS: INSULIN LISPRO 300 UNITS/3 ML INSULN.PEN. SQ (17:00)
[2018-03-25 17:14] LABS: POC GLUCOSE 34 mg/dL (70-99)
[2018-03-25 17:14] LABS: POC GLUCOSE 39 mg/dL (70-99)
[2018-03-25 17:29] LABS: POC GLUCOSE 123 mg/dL (70-99)
[2018-03-25] MEDS: CARVEDILOL 12.5 MG TABLET. PO (19:13)
[2018-03-25] MEDS: ENOXAPARIN 30 MG/0.3 ML SYRINGE. SQ (19:13)
[2018-03-25] MEDS: ATORVASTATIN CALCIUM 40 MG TABLET. PO (20:49)
[2018-03-25] MEDS: PATCH REMOVAL. MC (20:49)
[2018-03-25] MEDS: DOCUSATE SODIUM 100 MG CAPSULE. PO (20:49)
[2018-03-25 21:19] LABS: TROPONINI 0.057 ng/mL (0.000-0.055)
[2018-03-26] MEDS: IV NORMAL SALINE 1000ML BAG 1,000 ML IV ×3 (00:52→11:15)
[2018-03-26 04:53] LABS: HEMATOCRIT 41.6 % (39.0-53.0); HEMOGLOBIN 13.9 g/dL (13.0-17.5); MEAN CORPUSCULAR HEMOGLOBIN 28 pg (25-35); MEAN CORPUSCULAR HGB CONC 34 g/dL (31-37); MEAN CORPUSCULAR VOLUME 84 fL (79-100); PLATELET COUNT 146 x10^3/uL (140-400); RED BLOOD COUNT 4.98 x10^6/uL (4.30-5.70); RED CELL DISTRIBUTION WIDTH 15.1 % (11.5-14.5); WHITE BLOOD COUNT 5.3 x10^3/uL (4.0-11.0)
[2018-03-26 05:19] LABS: ALBUMIN 3.7 g/dL (3.4-5.0); ALBUMIN/GLOBULIN RATIO 0.9 (1.0-1.7); ALK PHOS 58 U/L (46-116); ALT (SGPT) 24 U/L (16-63); ANION GAP 8 (6-14); AST (SGOT) 26 U/L (15-37); BLOOD UREA NITROGEN 42 mg/dL (8-26); BUN/CREATININE RATIO 15 (6-20); CALCIUM 9.5 mg/dL (8.5-10.1); CARBON DIOXIDE 26 mmol/L (21-32); CHLORIDE 105 mmol/L (98-107); CHOLESTEROL 109 mg/dL (0-200); CREATININE 2.8 mg/dL (0.7-1.3); GFR 26.9; GLUCOSE 111 mg/dL (70-99); HDLC 32 mg/dL (40-60); LDLC 57 mg/dL (0-100); NON-HDL CHOLESTEROL 77 mg/dL (0-129); SODIUM 139 mmol/L (136-145); TOTAL BILIRUBIN 0.4 mg/dL (0.2-1.0); TRIGLYCERIDES 98 mg/dL (0-150); VLDLC 20 mg/dL (0-40)
[2018-03-26 05:24] LABS: CHOLESTEROL/HDL RATIO 3.4
[2018-03-26 05:26] LABS: POTASSIUM 6.2 mmol/L (3.5-5.1)
[2018-03-26] MEDS: SODIUM POLYSTYRENE SULFONATE 15 GM/60 ML ORAL.SUSP. PO (06:18)
[2018-03-26] MEDS: DOCUSATE SODIUM 100 MG CAPSULE. PO ×2 (07:07→21:00)
[2018-03-26] MEDS: LIDOCAINE (700MG/PATCH) PATCH. TD (07:08)
[2018-03-26] MEDS: INSULIN LISPRO 300 UNITS/3 ML INSULN.PEN. SQ ×3 (08:00→17:00)
[2018-03-26 08:05] LABS: POC GLUCOSE 142 mg/dL (70-99)
[2018-03-26] MEDS: CLOPIDOGREL BISULFATE 75 MG TABLET PO (08:15)
[2018-03-26] MEDS: ASPIRIN ENTERIC COATED 81 MG TABLET.DR. PO (08:15)
[2018-03-26] MEDS: CARVEDILOL 12.5 MG TABLET. PO ×2 (08:15→17:50)
[2018-03-26] MEDS: EZETIMIBE 10 MG TABLET. PO (08:15)
[2018-03-26 11:35] LABS: POC GLUCOSE 119 mg/dL (70-99)
[2018-03-26] MEDS: IPRATRPIUM/ALBUTEROL 0.5/2.5MG 3 ML NEBU. NEB ×3 (12:30→19:39)
[2018-03-26 17:16] LABS: POC GLUCOSE 144 mg/dL (70-99)
[2018-03-26] MEDS: oxyCODONE/APAP 5/325 1 TAB TABLET PO (17:50)
[2018-03-26] MEDS: ENOXAPARIN 30 MG/0.3 ML SYRINGE. SQ (17:51)
[2018-03-26] MEDS: BUDESONIDE 0.5 MG/2 ML NEBU. NEB (19:39)
[2018-03-26] MEDS: PATCH REMOVAL. MC (21:00)
[2018-03-26] MEDS: ATORVASTATIN CALCIUM 40 MG TABLET. PO (21:05)
[2018-03-26 21:08] LABS: POC GLUCOSE 141 mg/dL (70-99)
[2018-03-27] MEDS: BUDESONIDE 0.5 MG/2 ML NEBU. NEB ×2 (07:41→19:27)
[2018-03-27] MEDS: IPRATRPIUM/ALBUTEROL 0.5/2.5MG 3 ML NEBU. NEB ×4 (07:41→19:27)
[2018-03-27 08:22] LABS: POC GLUCOSE 158 mg/dL (70-99)
[2018-03-27] MEDS: DOCUSATE SODIUM 100 MG CAPSULE. PO ×2 (08:56→20:41)
[2018-03-27] MEDS: CARVEDILOL 12.5 MG TABLET. PO ×2 (08:56→18:01)
[2018-03-27] MEDS: ASPIRIN ENTERIC COATED 81 MG TABLET.DR. PO (08:56)
[2018-03-27] MEDS: EZETIMIBE 10 MG TABLET. PO (08:56)
[2018-03-27] MEDS: CLOPIDOGREL BISULFATE 75 MG TABLET PO (08:56)
[2018-03-27] MEDS: LIDOCAINE (700MG/PATCH) PATCH. TD (08:57)
[2018-03-27] MEDS: INSULIN LISPRO 300 UNITS/3 ML INSULN.PEN. SQ ×3 (09:00→17:00)
[2018-03-27 09:05] LABS: ANION GAP 9 (6-14); BLOOD UREA NITROGEN 29 mg/dL (8-26); CALCIUM 8.8 mg/dL (8.5-10.1); CARBON DIOXIDE 24 mmol/L (21-32); CHLORIDE 102 mmol/L (98-107); CREATININE 2.1 mg/dL (0.7-1.3); GFR 37.5; GLUCOSE 154 mg/dL (70-99); PHOSPHORUS 3.2 mg/dL (2.6-4.7); POTASSIUM 5.9 mmol/L (3.5-5.1); SODIUM 135 mmol/L (136-145)
[2018-03-27] MEDS: IV NORMAL SALINE 1000ML BAG 1,000 ML IV ×2 (12:00→19:11)
[2018-03-27 12:30] LABS: POC GLUCOSE 110 mg/dL (70-99)
[2018-03-27] MEDS: amLODIPine BESYLATE 5 MG TABLET PO (12:33)
[2018-03-27] MEDS: SODIUM POLYSTYRENE SULFONATE 15 GM/60 ML ORAL.SUSP. PO (12:33)
[2018-03-27] MEDS ORDERED: ONDANSETRON PF 4 MG/2 ML VIAL. IV (15:30)
[2018-03-27] MEDS ORDERED: MORPHINE SULFATE 4 MG/ML DISP.SYRIN. IV (15:30)
[2018-03-27] MEDS ORDERED: DOCUSATE SODIUM 100 MG CAPSULE. PO (15:30)
[2018-03-27] MEDS ORDERED: traMADol 50 MG TABLET PO (15:30)
[2018-03-27] MEDS ORDERED: hydrALAZINE 20 MG/ML VIAL. IVP (15:30)
[2018-03-27 17:29] LABS: POC GLUCOSE 116 mg/dL (70-99)
[2018-03-27] MEDS: ACETAMINOPHEN 325 MG TABLET. PO (18:01)
[2018-03-27] MEDS: ENOXAPARIN 40 MG/0.4 ML SYRINGE. SQ (18:01)
[2018-03-27] MEDS: ATORVASTATIN CALCIUM 40 MG TABLET. PO (20:40)
[2018-03-27] MEDS: PATCH REMOVAL. MC (20:41)
[2018-03-27 20:48] LABS: POC GLUCOSE 171 mg/dL (70-99)
[2018-03-28 03:47] LABS: ADD MAN DIFF? NO
[2018-03-28 04:24] LABS: BASO % 1 % (0-3); EOS # 0.3 x10^3/uL (0.0-0.7); EOS % 6 % (0-3); HEMATOCRIT 45.1 % (39.0-53.0); HEMOGLOBIN 14.8 g/dL (13.0-17.5); LYMPH # 1.8 x10^3/uL (1.0-4.8); LYMPH % 33 % (24-48); MEAN CORPUSCULAR HEMOGLOBIN 28 pg (25-35); MEAN CORPUSCULAR HGB CONC 33 g/dL (31-37); MEAN CORPUSCULAR VOLUME 84 fL (79-100); MONO # 0.7 x10^3/uL (0.0-1.1); MONO % 14 % (0-9); NEUT # 2.5 x10^3uL (1.8-7.7); NEUT % 47 % (31-73); PLATELET COUNT 140 x10^3/uL (140-400); RED BLOOD COUNT 5.39 x10^6/uL (4.30-5.70); RED CELL DISTRIBUTION WIDTH 14.7 % (11.5-14.5); WHITE BLOOD COUNT 5.4 x10^3/uL (4.0-11.0)
[2018-03-28 04:35] LABS: ANION GAP 7 (6-14); BLOOD UREA NITROGEN 29 mg/dL (8-26); CARBON DIOXIDE 25 mmol/L (21-32); CHLORIDE 105 mmol/L (98-107); CREATININE 2.1 mg/dL (0.7-1.3); GFR 37.5; GLUCOSE 113 mg/dL (70-99); POTASSIUM 5.5 mmol/L (3.5-5.1); SODIUM 137 mmol/L (136-145)
[2018-03-28] MEDS: IPRATRPIUM/ALBUTEROL 0.5/2.5MG 3 ML NEBU. NEB ×2 (07:55→12:00)
[2018-03-28] MEDS: BUDESONIDE 0.5 MG/2 ML NEBU. NEB (07:55)
[2018-03-28] MEDS: INSULIN LISPRO 300 UNITS/3 ML INSULN.PEN. SQ ×2 (08:00→12:24)
[2018-03-28] MEDS: EZETIMIBE 10 MG TABLET. PO (08:27)
[2018-03-28] MEDS: amLODIPine BESYLATE 5 MG TABLET PO (08:28)
[2018-03-28] MEDS: ASPIRIN ENTERIC COATED 81 MG TABLET.DR. PO (08:28)
[2018-03-28] MEDS: CARVEDILOL 12.5 MG TABLET. PO (08:28)
[2018-03-28] MEDS: CLOPIDOGREL BISULFATE 75 MG TABLET PO (08:28)
[2018-03-28] MEDS: DOCUSATE SODIUM 100 MG CAPSULE. PO (08:28)
[2018-03-28] MEDS: LIDOCAINE (700MG/PATCH) PATCH. TD (09:00)
[2018-03-28 09:51] LABS: POC GLUCOSE 108 mg/dL (70-99)
[2018-03-28 11:33] LABS: POC GLUCOSE 166 mg/dL (70-99)
[2018-03-28] MEDS: IV NORMAL SALINE 1000ML BAG 1,000 ML IV (14:40)
== END 2018-03-28 16:41 | disposition home or self-care (01) | DRG 640 ==
LOC: ER 13:35 → 2 NORTH 14:53
DX: E87.5 Hyperkalemia (principal); N17.0 Acute kidney failure with tubular necrosis; E86.0 Dehydration; N18.4 Chronic kidney disease, stage 4 (severe); E11.22 Type 2 diabetes mellitus with diabetic chronic kidney disease; I42.0 Dilated cardiomyopathy; E11.649 Type 2 diabetes mellitus with hypoglycemia without coma; I13.0 Hypertensive heart and chronic kidney disease with heart failure and stage 1 through stage 4 chronic kidney disease, or unspecified chronic kidney disease; I50.22 Chronic systolic (congestive) heart failure; E11.51 Type 2 diabetes mellitus with diabetic peripheral angiopathy without gangrene; I25.10 Atherosclerotic heart disease of native coronary artery without angina pectoris; M19.90 Unspecified osteoarthritis, unspecified site; E78.5 Hyperlipidemia, unspecified; J44.9 Chronic obstructive pulmonary disease, unspecified; K21.9 Gastro-esophageal reflux disease without esophagitis; H54.62 Unqualified visual loss, left eye, normal vision right eye; F17.210 Nicotine dependence, cigarettes, uncomplicated; Z95.810 Presence of automatic (implantable) cardiac defibrillator; Z82.49 Family history of ischemic heart disease and other diseases of the circulatory system; I25.2 Old myocardial infarction; Z95.1 Presence of aortocoronary bypass graft; Z98.41 Cataract extraction status, right eye; Z82.5 Family history of asthma and other chronic lower respiratory diseases; Z82.0 Family history of epilepsy and other diseases of the nervous system; K80.20 Calculus of gallbladder without cholecystitis without obstruction; Z81.8 Family history of other mental and behavioral disorders; Z83.3 Family history of diabetes mellitus
CPT/HCPCS: 36415; 71045; 74176; 76770; 78582; 80048; 80053; 80061; 81001; 82962; 83735; 84100; 84484; 85025; 85027; 85379; 93005; 93306; 94640; 94760; 96361; 96374; 96375; 99285; 99285-25; A9540; A9558; J1650; J1815; J3490; J7030; J7040; J7042; J7620; J7626

== ENCOUNTER 2018-11-28 07:35 | Outpatient (CLI) | payer MEDICARE ==
[~2018-11-28] VITALS: Ht 180.3 cm; Wt 99.8 kg
[~2018-11-28 07:35] MED LIST changes: +AMLO5TAB7 PO; +CARV12.511 PO; -CARV12.52 PO; +DOCU-109 PO; +EZET10TA18 PO; -EZET10TA3 PO; +LIDO700A4 TD; +OXYC1TAB15 PO
[2018-11-28] MEDS ORDERED: FURO40TA4 PO (07:55)
[2018-11-28] MEDS ORDERED: POTA20TA82 PO (07:55)
[2018-11-28] MEDS ORDERED: LISI10TA2 PO (07:56)
[2018-11-28] MEDS ORDERED: ISOS30TA4 PO (07:56)
[2018-11-28 08:07] VITALS: BP 159/83
[2018-11-28 08:07] LABS: HEMATOCRIT 43.2 % (39.0-53.0); HEMOGLOBIN 14.3 g/dL (13.0-17.5); RED BLOOD COUNT 5.26 x10^6/uL (4.30-5.70); RED CELL DISTRIBUTION WIDTH 15.5 % (11.5-14.5)
[2018-11-28 08:13] LABS: CALCIUM 9.4 mg/dL (8.5-10.1); CREATININE 1.8 mg/dL (0.7-1.3); GFR 44.7; POTASSIUM 4.3 mmol/L (3.5-5.1)
[2018-11-28] MEDS ORDERED: BACITRACIN 50,000 UNIT in IV NORMAL SALINE 250ML 250 ML IRR ONE (09:00)
[2018-11-28] MEDS ORDERED: MIDAZOLAM HCL/PF 5 MG/5 ML VIAL. ONE (10:18)
[2018-11-28] MEDS ORDERED: fentaNYL PF VIAL 250 MCG/5 ML VIAL ONE (10:19)
[2018-11-28] MEDS ORDERED: LIDOCAINE 2%/EPI 1:100,000 20 ML VIAL. ONE (10:19)
--- NOTE | 2018-11-28 10:30 | PDOC ---
MODERATE SEDATION ASSESSMENT RISKS/ALTERNATIVES Risks/Alternatives Risks and alternatives of this type of sedation and procedure discussed with: RISK/ALTERNATIVES: Patient H & P ON CHART H & P H & P on chart and reviewed for co-morbid conditions and appropriate labs. H&P ON CHART: Yes STATUS PREG STATUS ASSESSED: N/A MEDS/ALLERGIES REVIEWED Meds/Allergies Reviewed Medications and Allergies including time and route of recently administered narcotics and sedatives. MEDS/ALLERGIES REVIEWED: Yes ASA RATING ASA RATING: III AIRWAY ASSESSMENT Airway Assessment Airway patency, oral function limitations, presence of caps, crowns, dentures, partials, and ability to extend neck assessed. AIRWAY ASSESSMENT: Yes MALLAMPATI SCORE MALLAMPATI SCORE: II PRE-SEDATION ASSESSMENT PRE-SEDATION ASSESSMENT: Yes BEATRIZ PURVIS MD Nov 28, 2018 10:30
[2018-11-28] MEDS ORDERED: MIDAZOLAM HCL/PF 5 MG/5 ML VIAL. IV ONE (10:45)
[2018-11-28] MEDS ORDERED: fentaNYL PF VIAL 250 MCG/5 ML VIAL IV ONE (10:45)
[2018-11-28] MEDS ORDERED: LIDOCAINE 2%/EPI 1:100,000 20 ML VIAL. IJ ONE (10:45)
--- NOTE | 2018-11-28 11:12 | NUR ---
Pacemaker\AICD generator changed. Previous device was [employer] and new device is [employer] DDD 60/130.
[2018-11-28 11:36] VITALS: BP 164/98
[2018-11-28 11:45] VITALS: BP 132/90
--- NOTE | 2018-11-28 11:48 | CARD ---
MR#: [id number] Date of Study: 11/28/2018 Ordering Physician: BEATRIZ PURVIS, Referring Physician: BEATRIZ PURVIS, Tech: APPROVED REPORT HISTORY The Patient is a 73 year-old male with a history of ISCMP PROCEDURES ICD Gen change - dual lead INDICATIONS Battery depletion. IMPLANTED DEVICES After appropriate informed consent the left chest was prepped and draped in usual sterile fashion. 40 mL of 2% lidocaine was infiltrated into the skin and subcutaneous tissues for local anesthesia. A n incision was made over the left infraclavicular fossa and using blunt dissection and cautery the pr evious pocket was opened. There was extensive scar tissue noted and with cautery, blunt dissection th e previous ICD battery was removed. Subsequently the battery was disconnected and connected to a [employer] ICD generator, serial number [id number]. Previous right atrial and right ventricular leads were functioning well. Right atrial lead is Medtron ic model #4076/serial number BB [id number], right ventricular lead is Medtronic model #6947, serial num margarita [id number] the generator was Medtronic model number D314 DRG, serial number [id number] The device was then placed back in the pocket and the pocket was closed in 3 layers. At the end of procedure, the right ventricular lead showed sensing amplitude of 11.4, right atrial le ad showed sensing a multitude of 2.6. Impedances were 860 and 430 respectively. Thresholds were 0.75 in both leads. Mode DDD, 601 20, VT 1 zone 139, VT 2 zone 166, VF zone 187. Frequent PVCs were noted. Previously patient had 62 PVCs per hour over the last one year. CONCLUSION 1. Successful ICD generator change for end-of-life. 2. Frequent PVCs, further treatment per outpatient debt counselor. Signed by : Beatriz Purvis, Electronically Approved : 11/28/2018 11:47:13
[2018-11-28 12:00] VITALS: BP 138/88
[2018-11-28 12:15] VITALS: BP 132/90
[2018-11-28 12:30] VITALS: BP 151/81
--- NOTE | 2018-11-28 12:50 | NUR ---
Discharge Pt alert and oriented x 3, gcs 15, able to tolerate PO, ambulatory with steady gait, no new c/o pain. DC instructions provided and reviewed, questions answered. Dressing remains dry and intact, pressure dressing removed. Escorted to car per wc, friend to drive. GREG RN Addendum: 11/28/18 at 1307 by ANASTACIA CERNA RN Amended: Links added.
== END 2018-11-28 12:50 | disposition home or self-care (01) ==
LOC: CCL 07:35
PROVIDERS: ATTEND Internal Medicine Cardiovascular Disease
DX: Z45.02 Encounter for adjustment and management of automatic implantable cardiac defibrillator (principal); I25.5 Ischemic cardiomyopathy; Z79.899 Other long term (current) drug therapy
CPT/HCPCS: 33263; 36415; 80048; 85027; 85610; 99152; 99153; C1721; J0690; J2250; J3010; J3490; J7050; J7030

== ENCOUNTER → 2019-02-06 | Outpatient (CLI) | payer MEDICARE ==
[~2019-02-06] MED LIST changes: +AMLO5TAB10 PO; -AMLO5TAB7 PO; +POTA20TA82 PO
--- NOTE | 2019-02-06 12:31 | RAD ---
MR#: [id number] Date of Study: 02/06/2019 Ordering Physician: TANYA MORGAN, Referring Physician: TANYA MORGAN, Tech: Katarina Patel RDMS, ROSI APPROVED REPORT Patient Location: OUT-PATIENT Laterality:Bilateral Indications KNOWN HISTORY OF CAROTID STENOSIS Surgery/Intervention Endarterectomy: left Doppler Spectral Velocity Analysis Right Left pCCA 99/13 cm/spCCA 78/17 cm/s mCCA 61/12 cm/smCCA 85/17 cm/s dCCA 50/10 cm/sdCCA 81/14 cm/s Bulb 32/12 cm/sBulb 48/9 cm/s ECA 76/10 cm/sECA 78/8 cm/s pICA 88/19 cm/spICA 64/16 cm/s Jaymie 129/36 cm/smICA 52/20 cm/s dICA 107/26 cm/sdICA 53/18 cm/s Vert. 31/6 cm/sVert. 59/21 cm/s Subcl. 189/0 cm/sSubcl. 63/11 cm/s ICA/CCA 1.30ICA/CCA 0.82 Findings Grayscale images of the bilateral carotid vessels reveals mild intimal hyperplasia throughout the art erial tree. The left carotid bulb appears to be mildly ectatic and there is a history of endarterecto my at that site. Grayscale images on the right demonstrate a 50% nonobstructive plaque in the right internal carotid a rtery. Based on velocity criteria there is overall 50-69% stenosis consistent with moderate degree of narrowing. On the left no significant velocity acceleration is noted and overall 0 to less than 50% stenosis by velocity criteria. The ICA to CCA ratio is mildly elevated at 2.1 on the right side and is within normal limits on the l eft side. Bilateral subclavian and vertebral velocities are within normal limits and antegrade and fashion. Critical Notification Critical Value: No <Conclusion> 1. Moderate 50-69% stenosis involving the right internal carotid artery. 2. Normal antegrade vertebral velocities. Signed by : Sukumar Waldron, Electronically Approved : 02/06/2019 12:30:57
== END | disposition home or self-care (01) ==
LOC: US 09:57
PROVIDERS: ATTEND Internal Medicine Cardiovascular Disease
DX: I65.21 Occlusion and stenosis of right carotid artery (principal); I25.10 Atherosclerotic heart disease of native coronary artery without angina pectoris
CPT/HCPCS: 93880

== ENCOUNTER 2020-01-07 07:06 | Inpatient (IN) | payer MEDICARE, OTHER ==
[~2020-01-07] VITALS: Ht 180.3 cm; Wt 77.8 kg
[~2020-01-07 07:06] MED LIST changes: -EZET10TA18 PO; +EZET10TA20 PO; -POTA20TA82 PO
[2020-01-07] MEDS ORDERED: ASPIRIN 325 MG TABLET PO ONE (07:15)
--- NOTE | 2020-01-07 07:57 | PHYS DOC ---
Past Medical History Past Medical History: Arrhythmia, CAD, Diabetes-Type II, Hypertension, Kidney Infection, MO Past Surgical History: Coronary Bypass Surgery, Pacemaker, Other Additional Past Surgical Histo: 2000 CABG x2, 2013 CABG x3, AICD Smoking Status: Former Smoker Alcohol Use: None Drug Use: None Adult General Chief Complaint Chief Complaint: CHEST PAIN HPI HPI Patient is a 74 year old Male who presents to the ED after multiple episodes of his defibrillations from his permanent defibrillator. He states that the first event occurred last night at 1830. He did have 3 episodes, one overnight and 2 this morning. He states that before the initial episode he did have a feeling of rapid heartbeat seconds before the shock. This is the first time he his felt his pacemaker go off. He denied any chest pain, shortness of breath, lightheadedness, nausea, or vomiting. He did state that he had an abnormal feeling that he was unable to describe. He does have a past medical history of multiple MIs requiring multiple CABG surgeries. Review of Systems Review of Systems Constitutional: Denies fever or chills Eyes: Denies redness or eye pain HENT: Denies nasal congestion or sore throat Respiratory: Denies cough or shortness of breath Cardiovascular: Denies chest pain, Reports palpitations GI: Denies abdominal pain, nausea, or vomiting Musculoskeletal: Denies back pain or joint pain Integument: Denies rash or skin lesions Neurologic: Denies headache, focal weakness or sensory changes Complete systems were reviewed and found to be within normal limits, except as documented in this note. Current Medications Current Medications Current Medications Medications (Trade) Dose Ordered Sig/Ned Start Time Stop Time Status Last Admin Dose Admin Aspirin (Ellie Aspirin) 325 mg 1X ONCE 01/07/20 07:15 01/07/20 07:18 DC 01/07/20 10:02 325 MG Allergies Allergies Allergies Coded Allergies Type Severity Reaction Last Updated Verified No Known Drug Allergies 05/17/17 No Physical Exam Physical Exam Constitutional: Well developed, well nourished, no acute distress, Uncomfortable appearance HENT: Normocephalic, atraumatic, oropharynx moist Eyes: , Conjunctiva normal, no discharge, left pupil cloudiness and deviation- baseline Neck: Normal range of motion, no tenderness, supple Cardiovascular: Heart rate normal, irregular rhythm Lungs & Thorax: Bilateral breath sounds clear to auscultation, no wheezing Abdomen: Soft, no tenderness Skin: Warm, dry, no erythema, no rash, multiple scares b/l UE, Chest midline Extremities: No tenderness, ROM intact, no edema Neurologic: Alert and oriented, no focal deficits noted Psychologic: Affect normal, judgment normal Current Patient Data Vital Signs Vital Signs Date Time Temp Pulse Resp B/P (MAP) Pulse Ox O2 Delivery O2 Flow Rate FiO2 01/07/20 07:40 83 16 124/64 (84) 96 Room Air 01/07/20 07:11 98.4 98.4 Lab Values Laboratory Tests Test 01/07/20 08:08 White Blood Count 2.7 x10^3/uL (4.0-11.0) L Red Blood Count 3.07 x10^6/uL (4.30-5.70) L Hemoglobin 8.3 g/dL (13.0-17.5) L Hematocrit 25.7 % (39.0-53.0) L Mean Corpuscular Volume 84 fL (79-100) Mean Corpuscular Hemoglobin 27 pg (25-35) Mean Corpuscular Hemoglobin Concent 32 g/dL (31-37) Red Cell Distribution Width 19.3 % (11.5-14.5) H Platelet Count 109 x10^3/uL (140-400) L Neutrophils (%) (Auto) 56 % (31-73) Lymphocytes (%) (Auto) 13 % (24-48) L Monocytes (%) (Auto) 29 % (0-9) H Eosinophils (%) (Auto) 1 % (0-3) Basophils (%) (Auto) 1 % (0-3) Neutrophils # (Auto) 1.5 x10^3/uL (1.8-7.7) L Lymphocytes # (Auto) 0.4 x10^3/uL (1.0-4.8) L Monocytes # (Auto) 0.8 x10^3/uL (0.0-1.1) Eosinophils # (Auto) 0.0 x10^3/uL (0.0-0.7) Basophils # (Auto) 0.0 x10^3/uL (0.0-0.2) Platelet Estimate Pending Prothrombin Time 14.5 SEC (11.7-14.0) H Prothrombin Time INR 1.2 (0.8-1.1) H Activated Partial Thromboplast Time 34 SEC (24-38) Sodium Level 141 mmol/L (136-145) Potassium Level 3.4 mmol/L (3.5-5.1) L Chloride Level 104 mmol/L (98-107) Carbon Dioxide Level 27 mmol/L (21-32) Anion Gap 10 (6-14) Blood Urea Nitrogen 19 mg/dL (8-26) Creatinine 1.3 mg/dL (0.7-1.3) Estimated GFR (Cockcroft-Gault) 64.9 BUN/Creatinine Ratio 15 (6-20) Glucose Level 98 mg/dL (70-99) Calcium Level 8.7 mg/dL (8.5-10.1) Magnesium Level 1.8 mg/dL (1.8-2.4) Total Bilirubin 0.4 mg/dL (0.2-1.0) Aspartate Amino Transferase (AST) 38 U/L (15-37) H Alanine Aminotransferase (ALT) 41 U/L (16-63) Alkaline Phosphatase 64 U/L (46-116) Creatine Kinase 103 U/L (39-308) Creatine Kinase MB (Mass) 1.6 ng/mL (0.0-3.6) Creatine Kinase MB Relative Index 1.6 % (0-4) Troponin I Quantitative 0.116 ng/mL (0.000-0.055) PJ-Axk-E-Type Natriuretic Peptide 13469 pg/mL (0-449) H Total Protein 5.7 g/dL (6.4-8.2) L Albumin 2.3 g/dL (3.4-5.0) L Albumin/Globulin Ratio 0.7 (1.0-1.7) L Lipase 67 U/L (73-393) L Laboratory Tests 01/07/20 08:08 Laboratory Tests 01/07/20 08:08 EKG EKG 01/07/2020 @0712 irregular rhythm with heart rate of 91 bpm QT/QTc 380/469 PVCs present not seen on EKG on 03/25/2018 Radiology/Procedures Radiology/Procedures PROCEDURE: PORTABLE CHEST 1V PORTABLE CHEST 1V History: Chest pain Comparison: March 25, 2018 Findings: Patchy bibasilar opacities. Enlarged cardiac silhouette, similar compared to prior. No pleural effusion. No pneumothorax. Right chest wall port. Stable left-sided pacemaker/ICD. Prior median sternotomy. Impression: 1. Patchy bibasilar opacities, likely atelectasis. PA and lateral view of the chest can better assess. Electronically signed by: Maximiliano Wiseman DO (01/07/2020 8:15 AM) [id number] Course & Med Decision Making Course & Med Decision Making 74-year-old male presents to the ED after multiple episodes of defibrillations from his permanent defibrillator. Patient has had history of multiple MIs. Patient admits to feeling a rapid heart rate prior to defibrillations. He denies any chest pain, shortness of breath, nausea, or vomiting. EKG showed new onset PVCs not seen on prior study on 03/25/2018. His defibrillator interrogation show ed 3 episodes of V. fib that occurred prior to defibrillations. His labs showed an elevated troponin, low albumin, a low potassium and elevated PT and PTT. He was also found to have pancytopenia on his CBC. Chest x-ray showed bibasilar effusions with normal placement for his defibrillator leads. He was given aspirin, zofran for nausea, and his potassium was replaced. He put on continuous cardiac monitoring and pulse ox. He was worked up for causes of V. fib NSTEMI vs. electrolyte imbalance. Patient was found to have an elevated troponin of 0.116. Patient requiring admission for further evaluation and treatment. Discussed with Dr. Lowery (hospitalist) who is in agreement with admission. Consult placed to Dr. Bermudez (cardiology). Discussed consult with Jakob ROMAN with Dr. Bermudez. Discussed findings and plan with patient and family, who acknowledge understanding and agreement. Dragon Disclaimer Dragon Disclaimer This electronic medical record was generated, in whole or in part, using a voice recognition dictation system. Departure Departure Impression: Primary Impression: Defibrillator discharge Additional Impressions: History of ventricular fibrillation Elevated troponin Pancytopenia Hypokalemia Disposition: ADMITTED INPATIENT Admitting Physician: MOI (Sebastián) Condition: STABLE Referrals: DARLING CASTORENA MD (PCP) Problem Qualifiers SUNNY LUA DO Jan 07, 2020 07:57
--- NOTE | 2020-01-07 08:18 | RAD ---
PORTABLE CHEST 1V History: Chest pain Comparison: March 25, 2018 Findings: Patchy bibasilar opacities. Enlarged cardiac silhouette, similar compared to prior. No pleural effusion. No pneumothorax. Right chest wall port. Stable left-sided pacemaker/ICD. Prior median sternotomy. Impression: 1. Patchy bibasilar opacities, likely atelectasis. PA and lateral view of the chest can better assess. Electronically signed by: Maximiliano Wiseman DO (01/07/2020 8:15 AM) [facility]
[2020-01-07 08:42] LABS: CALCIUM 8.7 mg/dL (8.5-10.1); CREATININE 1.3 mg/dL (0.7-1.3); GFR 64.9; POTASSIUM 3.4 mmol/L (3.5-5.1)
[2020-01-07 08:46] LABS: ALBUMIN 2.3 g/dL (3.4-5.0); ALBUMIN/GLOBULIN RATIO 0.7 (1.0-1.7); MAGNESIUM 1.8 mg/dL (1.8-2.4); PROTHROMBIN TIME PATIENT 14.5 SEC (11.7-14.0); TOTAL BILIRUBIN 0.4 mg/dL (0.2-1.0); TOTAL PROTEIN 5.7 g/dL (6.4-8.2)
--- NOTE | 2020-01-07 08:55 | PDOC1 ---
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 He states that the first event occurred last night at 1830. He did have 2 episodes, one overnight and 1 this morning. He states that before the initial episode he did have a feeling of rapid heartbeat seconds before the shock. This is the first time his felt his pacemaker go off. He denied any chest pain, shortness of breath, lightheadedness, nausea, and vomiting. He did state that he had an abnormal feeling that he was unable to describe. He does have a past medical history of multiple MIs requiring multiple CABG surgeries. He is also under current treatment through [facility] for squamous cell lung cancer s/p 30 radiation treatments and under chemotherapy since diagnosis this past July 2019. He has been c/o dysphagia recently as well. WBC 2.7, Hb 8.3, Platelets 109, BNP 62853, trop 0.116. CXR with patchy bibasilar opacities. Past Medical History Cardiovascular: CAD, CHF, HTN, Hyperlipidemia, Other Pulmonary: COPD CENTRAL NERVOUS SYSTEM: Other GI: GERD Heme/Onc: No pertinent hx Hepatobiliary: No pertinent hx, Cholelithiasis Psych: No pertinent hx Musculoskeletal: Osteoarthritis Rheumatologic: Other Infectious disease: No pertinent hx Renal/: Chronic renal insuff Endocrine: Diabetes Past Surgical History Past Surgical History: Pacemaker, CABG, Cataract Removal, Colectomy, Other Family History Family History: Diabetes Social History Smoke: Quit ALCOHOL: none Drugs: None Current Problem List Problem List Problems Medical Problems: (1) Defibrillator discharge Status: Acute (2) History of ventricular fibrillation Status: Acute Current Medications Current Medications Current Medications Aspirin (Ellie Aspirin) 325 mg 1X ONCE PO ; Start 01/07/20 at 07:15; Stop 01/07/20 at 07:18; Status DC Ondansetron HCl (Zofran) 4 mg PRN Q8HRS PRN IV NAUSEA/VOMITING; Start 01/07/20 at 09:00; Stop 2/18/20 at 08:59; Status UNV Active Scripts Active Novolog Flexpen (Insulin Aspart) 300 Units/3 Ml Insuln.pen 12 Units SQ TIDAC Reported Isosorbide Mononitrate Er (Isosorbide Mononitrate) 30 Mg Tab.er.24h 1 Tab PO DAILY Lisinopril 10 Mg Tablet 1 Tab PO DAILY Potassium Chloride 20 Meq Tablet.er 20 Meq PO DAILY Furosemide 40 Mg Tablet 1 Tab PO DAILY Aspir 81 (Aspirin) 81 Mg Tablet.dr 81 Mg PO DAILY Clopidogrel (Clopidogrel Bisulfate) 75 Mg Tablet 75 Mg PO DAILY Crestor (Rosuvastatin Calcium) 40 Mg Tablet 40 Mg PO HS Zetia (Ezetimibe) 10 Mg Tablet 10 Mg PO DAILY Carvedilol (Carvedilol) 12.5 Mg Tablet 12.5 Mg PO BID Allergies Allergies: Coded Allergies: No Known Drug Allergies (Unverified , 05/17/17) ROS General: YES: Fatigue, Malaise; No: Chills, Night Sweats, Appetite, Other PSYCHOLOGICAL ROS: No: Anxiety, Behavioral Disorder, Concentration difficultie, Decreased libido, Depression, Disorientation, Hallucinations, Hostility, Irritablity, Memory difficulties, Mood Swings, Obsessive thoughts, Physical abuse, Sexual abuse, Sleep disturbances, Suicidal ideation, Other Eyes: No Blurry vision, No Decreased vision, No Double vision, No Dry eyes, No Excessive tearing, No Eye Pain, No Itchy Eyes, No Loss of vision, No Photophobia, No Scotomata, No Uses contacts, No Uses glasses, No Other HEENT: No: Heacaches, Visual Changes, Hearing change, Nasal congestion, Nasal discharge, Oral lesions, Sinus pain, Sore Throat, Epistaxis, Sneezing, Snoring, Tinnitus, Vertigo, Vocal changes, Other ALLERGY AND IMMUNOLOGY: No: Hives, Insect Bite Sensitivity, Itchy/Watery Eyes, Nasal Congestion, Post Nasal Drip, Seasonal Allergies, Other Hematological and Lymphatic: No: Bleeding Problems, Blood Clots, Blood Transfusions, Brusing, Night Sweats, Pallor, Swollen Lymph Nodes, Other ENDOCRINE: No: Breast Changes, Galactorrhea, Hair Pattern Changes, Hot Flashes, Malaise/lethargy, Mood Swings, Palpitations, Polydipsia/polyuria, Skin Changes, Temperature Intolerance, Unexpected Weight Changes, Other Breast: No New/Changing Breast Lumps, No Nipple changes, No Nipple discharge, No Other Respiratory: YES: Cough; No: Hemoptysis, Orthopnea, Pleuritic Pain, Shortness of breath, SOB with excertion, Sputum Changes, Stridor, Tachypnea, Wheezing, Other Cardiovascular: No Chest Pain, No Palpitations, No Orthopnea, No Paroxysmal Noc. Dyspnea, No Edema, No Lt Headedness, No Other Gastrointestinal: Yes Nausea; No Vomiting, No Abdominal Pain, No Diarrhea, No Constipation, No Melena, No Hematochezia, No Other Genitourinary: No Dysuria, No Frequency, No Incontinence, No Hematuria, No Retention, No Discharge, No Urgency, No Pain, No Flank Pain, No Other, No , No , No , No , No , No , No Musculoskeletal: No Gait Disturbance, No Joint Pain, No Joint Stiffness, No Joint Swelling, No Muscle Pain, No Muscular Weakness, No Pain In:, No Swelling In:, No Other Neurological: No Behavorial Changes, No Bowel/Bladder ControlChng, No Confusion, No Dizziness, No Gait Disturbance, No Headaches, No Impaired Coord/balance, No Memory Loss, No Numbness/Tingling, No Seizures, No Speech Problems, No Tremors, No Visual Changes, No Weakness, No Other Skin: No Dry Skin, No Eczema, No Hair Changes, No Lumps, No Mole Changes, No Mottling, No Nail Changes, No Pruritus, No Rash, No Skin Lesion Changes, No Other, No Acne Physical Exam General: Alert, Oriented X3, Cooperative, mild distress HEENT: Atraumatic, PERRLA, EOMI, Mucous membr. moist/pink Lungs: Other (bibasilar crackles) Heart: S1S2, RRR Abdomen: Normal bowel sounds, Soft, No tenderness, No hepatosplenomegaly, No masses Rectal Exam: not examined Extremities: No clubbing, No cyanosis, No edema, Normal pulses, No tenderness/swelling Skin: No rashes, No breakdown, No significant lesion Neuro: Normal gait, Normal speech, Strength at 5/5 X4 ext, Normal tone, Sensation intact, Cranial nerves 3-12 NL, Reflexes 2+ Psych/Mental Status: Mental status NL, Mood NL Vitals Vitals Vital Signs Date Time Temp Pulse Resp B/P (MAP) Pulse Ox O2 Delivery O2 Flow Rate FiO2 01/07/20 07:11 98.4 102 16 133/58 (83) 97 Room Air 98.4 Labs Labs Laboratory Tests Test 01/07/20 08:08 Prothrombin Time 14.5 SEC (11.7-14.0) Prothromb Time International Ratio 1.2 (0.8-1.1) Activated Partial Thromboplast Time 34 SEC (24-38) Sodium Level 141 mmol/L (136-145) Potassium Level 3.4 mmol/L (3.5-5.1) Chloride Level 104 mmol/L (98-107) Carbon Dioxide Level 27 mmol/L (21-32) Anion Gap 10 (6-14) Blood Urea Nitrogen 19 mg/dL (8-26) Creatinine 1.3 mg/dL (0.7-1.3) Estimated GFR (Cockcroft-Gault) 64.9 BUN/Creatinine Ratio 15 (6-20) Glucose Level 98 mg/dL (70-99) Calcium Level 8.7 mg/dL (8.5-10.1) Magnesium Level 1.8 mg/dL (1.8-2.4) Total Bilirubin 0.4 mg/dL (0.2-1.0) Aspartate Amino Transf (AST/SGOT) 38 U/L (15-37) Alanine Aminotransferase (ALT/SGPT) 41 U/L (16-63) Alkaline Phosphatase 64 U/L (46-116) Troponin I Quantitative 0.116 ng/mL (0.000-0.055) Total Protein 5.7 g/dL (6.4-8.2) Albumin 2.3 g/dL (3.4-5.0) Albumin/Globulin Ratio 0.7 (1.0-1.7) Lipase 67 U/L (73-393) Laboratory Tests Test 01/07/20 08:08 Prothrombin Time 14.5 SEC (11.7-14.0) Prothromb Time International Ratio 1.2 (0.8-1.1) Activated Partial Thromboplast Time 34 SEC (24-38) Sodium Level 141 mmol/L (136-145) Potassium Level 3.4 mmol/L (3.5-5.1) Chloride Level 104 mmol/L (98-107) Carbon Dioxide Level 27 mmol/L (21-32) Anion Gap 10 (6-14) Blood Urea Nitrogen 19 mg/dL (8-26) Creatinine 1.3 mg/dL (0.7-1.3) Estimated GFR (Cockcroft-Gault) 64.9 BUN/Creatinine Ratio 15 (6-20) Glucose Level 98 mg/dL (70-99) Calcium Level 8.7 mg/dL (8.5-10.1) Magnesium Level 1.8 mg/dL (1.8-2.4) Total Bilirubin 0.4 mg/dL (0.2-1.0) Aspartate Amino Transf (AST/SGOT) 38 U/L (15-37) Alanine Aminotransferase (ALT/SGPT) 41 U/L (16-63) Alkaline Phosphatase 64 U/L (46-116) Troponin I Quantitative 0.116 ng/mL (0.000-0.055) Total Protein 5.7 g/dL (6.4-8.2) Albumin 2.3 g/dL (3.4-5.0) Albumin/Globulin Ratio 0.7 (1.0-1.7) Lipase 67 U/L (73-393) Images Images CXR - Patchy bibasilar opacities. Enlarged cardiac silhouette, similar compared to prior. No pleural effusion. No pneumothorax. Right chest wall port. Stable left-sided pacemaker/ICD. Prior median sternotomy. Impression: 1. Patchy bibasilar opacities, likely atelectasis. PA and lateral view of the chest can better assess. VTE Prophylaxis Ordered VTE Prophylaxis Devices: Yes VTE Pharmacological Prophylaxi: Yes Assessment/Plan Assessment/Plan A/P: Ventricular Fibrillation - s/p AICD discharge x2. Keep K> 4, Mg >2. Will trend troponins, consult cardiology. Likely etiology is CHF. Pancytopenia - likely related to chemotherapy with squamous cell lung cancer treatment HTN - cont meds CAD s/p CABG x2 - cont home meds, ASA, plavix. Cardiology consulted CHF s/p AICD - may be acute exacerbation causing ventricular arrhythmia. Will cont lasix. Replace lytes DM2 - basal bolus plus insulin in house Squamous cell lung cancer of right lung - ok to access port FEN - ADA cardiac diet PPX - Heparin FULL CODE Dispo - inpatient CVC for ventricular fibrillation INÉS CONCEPCION MD Jan 07, 2020 08:55
[2020-01-07] MEDS ORDERED: POTASSIUM CHLORIDE 20 MEQ TABLET.ER. PO ONE (09:00)
[2020-01-07] MEDS ORDERED: ONDANSETRON PF 4 MG/2 ML VIAL. IV PRN (09:00)
[2020-01-07 09:07] LABS: BASO % 1 % (0-3); EOS % 1 % (0-3); HEMATOCRIT 25.7 % (39.0-53.0); HEMOGLOBIN 8.3 g/dL (13.0-17.5); LYMPH # 0.4 x10^3/uL (1.0-4.8); LYMPH % 13 % (24-48); MEAN CORPUSCULAR HEMOGLOBIN 27 pg (25-35); MEAN CORPUSCULAR HGB CONC 32 g/dL (31-37); MEAN CORPUSCULAR VOLUME 84 fL (79-100); MONO # 0.8 x10^3/uL (0.0-1.1); MONO % 29 % (0-9); NEUT # 1.5 x10^3/uL (1.8-7.7); NEUT % 56 % (31-73); PLATELET COUNT 109 x10^3/uL (140-400); RED BLOOD COUNT 3.07 x10^6/uL (4.30-5.70); RED CELL DISTRIBUTION WIDTH 19.3 % (11.5-14.5); WHITE BLOOD COUNT 2.7 x10^3/uL (4.0-11.0)
--- NOTE | 2020-01-07 11:23 | EKG ---
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
[2020-01-07 14:54] LABS: % BANDS 1 % (0-9); % BASOS 1 % (0-3); % EOS 1 % (0-5); % LYMPHS 13 % (24-48); % MONOS 21 % (0-10); % SEGS 63 % (35-66)
[2020-01-07 14:55] LABS: ANISOCYTOSIS SLIGHT; PLT ESTIMATE DECREASED (ADEQUATE)
[2020-01-07 15:00] LABS: OVALOCYTES OCC
[2020-01-07] MEDS ORDERED: MAGNESIUM SULFATE 2GM 50 ML IV ONE (17:00)
[2020-01-07] MEDS ORDERED: ACETAMINOPHEN 325 MG TABLET. PO PRN (17:00)
[2020-01-07] MEDS ORDERED: ONDANSETRON PF 4 MG/2 ML VIAL. IVP PRN (17:00)
[2020-01-07] MEDS ORDERED: DEXTROSE 50% 25 GM / 50ML DISP.SYRIN. IV PRN (17:30)
[2020-01-07] MEDS: CARVEDILOL 12.5 MG TABLET. PO SCH (17:52)
--- NOTE | 2020-01-07 18:19 | PDOC2 ---
CONSULT Date of Consult Date of Consult DATE: 01/07/20 TIME: 18:13 Reason for Consult Reason for Consult: Discharge 3 of his defibrillator Referring Physician Referring Physician: Dr. Cabrera Identification/Chief Complaint Chief Complaint Defibrillator discharge Source Source: Chart review, Patient History of Present Illness Reason for Visit: The patient is a 74-year-old male who was admitted through the emergency room after he had a discharge of his AICD last night and then 2 further discharges earlier today. He has a history of 2 previous bypass surgeries the last being in 2012 and decreased LV systolic function. He has had a defibrillator placed for greater than 5 years but has never had a discharge prior to this. He denies any chest pain prior to his discharges. Most recently his history is been s ignificant for the finding of squamous cell carcinomas right lung is followed by [facility]. He has received radiation treatment and chemotherapy. Chest x-ray shows patchy bibasilar opacifications. He is resting more comfortably in bed at this time but is anxious regarding his discharges. Past Medical History Cardiovascular: CAD, CHF, HTN, Hyperlipidemia, Other Pulmonary: COPD CENTRAL NERVOUS SYSTEM: Other GI: GERD Heme/Onc: No pertinent hx Hepatobiliary: No pertinent hx, Cholelithiasis Psych: No pertinent hx Musculoskeletal: Osteoarthritis Rheumatologic: Other Infectious disease: No pertinent hx Renal/: Chronic renal insuff Endocrine: Diabetes Past Surgical History Past Surgical History: Pacemaker, CABG, Cataract Removal, Colectomy, Other (2 previous bypass surgeries, AICD.) Family History Family History: Diabetes Social History Quit ALCOHOL: none Drugs: None Lives: Alone Current Problem List Problem List Problems Medical Problems: (1) Defibrillator discharge Status: Acute (2) Elevated troponin Status: Acute (3) History of ventricular fibrillation Status: Acute (4) Hypokalemia Status: Acute (5) Pancytopenia Status: Acute Current Medications Current Medications Current Medications Aspirin (Ellie Aspirin) 325 mg 1X ONCE PO Last administered on 01/07/20at 10 :02; Start 01/07/20 at 07:15; Stop 01/07/20 at 07:18; Status DC Ondansetron HCl (Zofran) 4 mg PRN Q8HRS PRN IV NAUSEA/VOMITING; Start 01/07/20 at 09:00; Stop 01/07/20 at 17:06; Status DC Potassium Chloride (Klor-Con) 40 meq 1X ONCE PO Last administered on 01/07/20at 10:03; Start 01/07/20 at 09:00; Stop 01/07/20 at 09:01; Status DC Aspirin (Ecotrin) 81 mg DAILY PO ; Start 01/08/20 at 09:00 Carvedilol (Coreg) 12.5 mg BIDWMEALS PO Last administered on 01/07/20at 17:52; Start 01/07/20 at 18:00 Clopidogrel Bisulfate (Plavix) 75 mg DAILY PO ; Start 01/08/20 at 09:00 Isosorbide Mononitrate (Imdur) 30 mg DAILY PO ; Start 01/08/20 at 09:00 Lisinopril (Prinivil) 10 mg DAILY PO ; Start 01/08/20 at 09:00 Potassium Chloride (Klor-Con) 20 meq DAILY PO ; Start 01/08/20 at 09:00 Atorvastatin Calcium (Lipitor) 80 mg QHS PO ; Start 01/07/20 at 21:00 Magnesium Sulfate 50 ml @ 25 mls/hr 1X ONCE IV Last administered on 01/07/20at 17:54; Start 01/07/20 at 17:00; Stop 01/07/20 at 18:59 Furosemide (Lasix) 40 mg DAILY PO ; Start 01/08/20 at 09:00 Heparin Sodium (Porcine) (Heparin Sodium) 5,000 unit Q8HRS SQ ; Start 01/07/20 at 22:00 Acetaminophen (Tylenol) 650 mg PRN Q6HRS PRN PO pain/temp; Start 01/07/20 at 17:00 Ondansetron HCl (Zofran) 4 mg PRN Q6HRS PRN IVP NAUSEA/VOMITING; Start 01/07/20 at 17:00 Insulin Human Lispro (HumaLOG) 0-9 UNITS TIDACHC SQ ; Start 01/07/20 at 21:00 Dextrose (Dextrose 50%-Water Syringe) 12.5 gm PRN Q15MIN PRN IV SEE COMMENTS; Start 01/07/20 at 17:30 Active Scripts Active Novolog Flexpen (Insulin Aspart) 300 Units/3 Ml Insuln.pen 12 Units SQ TIDAC Reported Isosorbide Mononitrate Er (Isosorbide Mononitrate) 30 Mg Tab.er.24h 1 Tab PO DAILY Lisinopril 10 Mg Tablet 1 Tab PO DAILY Potassium Chloride 20 Meq Tablet.er 20 Meq PO DAILY Furosemide 40 Mg Tablet 1 Tab PO DAILY Aspir 81 (Aspirin) 81 Mg Tablet.dr 81 Mg PO DAILY Clopidogrel (Clopidogrel Bisulfate) 75 Mg Tablet 75 Mg PO DAILY Crestor (Rosuvastatin Calcium) 40 Mg Tablet 40 Mg PO HS Zetia (Ezetimibe) 10 Mg Tablet 10 Mg PO DAILY Carvedilol (Carvedilol) 12.5 Mg Tablet 12.5 Mg PO BID Allergies Allergies: Coded Allergies: No Known Drug Allergies (Unverified , 05/17/17) ROS General: YES: Fatigue Cardiovascular: yes Other (discharges of his ICD.) Physical Exam General: mild distress HEENT: Atraumatic Lungs: Clear to auscultation Heart: Regular rate Abdomen: Normal bowel sounds Vitals VITALS Vital Signs Date Time Temp Pulse Resp B/P (MAP) Pulse Ox O2 Delivery O2 Flow Rate FiO2 01/07/20 17:52 91 118/67 01/07/20 11:10 16 98 Room Air 01/07/20 07:11 98.4 98.4 Labs Labs Laboratory Tests Test 01/07/20 08:08 01/07/20 11:53 01/07/20 11:55 01/07/20 14:41 White Blood Count 2.7 x10^3/uL (4.0-11.0) Red Blood Count 3.07 x10^6/uL (4.30-5.70) Hemoglobin 8.3 g/dL (13.0-17.5) Hematocrit 25.7 % (39.0-53.0) Mean Corpuscular Volume 84 fL (79-100) Mean Corpuscular Hemoglobin 27 pg (25-35) Mean Corpuscular Hemoglobin Concent 32 g/dL (31-37) Red Cell Distribution Width 19.3 % (11.5-14.5) Platelet Count 109 x10^3/uL (140-400) Neutrophils (%) (Auto) 56 % (31-73) Lymphocytes (%) (Auto) 13 % (24-48) Monocytes (%) (Auto) 29 % (0-9) Eosinophils (%) (Auto) 1 % (0-3) Basophils (%) (Auto) 1 % (0-3) Neutrophils # (Auto) 1.5 x10^3/uL (1.8-7.7) Lymphocytes # (Auto) 0.4 x10^3/uL (1.0-4.8) Monocytes # (Auto) 0.8 x10^3/uL (0.0-1.1) Eosinophils # (Auto) 0.0 x10^3/uL (0.0-0.7) Basophils # (Auto) 0.0 x10^3/uL (0.0-0.2) Segmented Neutrophils % 63 % (35-66) Band Neutrophils % 1 % (0-9) Lymphocytes % 13 % (24-48) Monocytes % 21 % (0-10) Eosinophils % 1 % (0-5) Basophils % 1 % (0-3) Platelet Estimate Decreased (ADEQUATE) Anisocytosis Slight Ovalocytes Occ Prothrombin Time 14.5 SEC (11.7-14.0) Prothromb Time International Ratio 1.2 (0.8-1.1) Activated Partial Thromboplast Time 34 SEC (24-38) Sodium Level 141 mmol/L (136-145) Potassium Level 3.4 mmol/L (3.5-5.1) Chloride Level 104 mmol/L (98-107) Carbon Dioxide Level 27 mmol/L (21-32) Anion Gap 10 (6-14) Blood Urea Nitrogen 19 mg/dL (8-26) Creatinine 1.3 mg/dL (0.7-1.3) Estimated GFR (Cockcroft-Gault) 64.9 BUN/Creatinine Ratio 15 (6-20) Glucose Level 98 mg/dL (70-99) Calcium Level 8.7 mg/dL (8.5-10.1) Magnesium Level 1.8 mg/dL (1.8-2.4) Total Bilirubin 0.4 mg/dL (0.2-1.0) Aspartate Amino Transf (AST/SGOT) 38 U/L (15-37) Alanine Aminotransferase (ALT/SGPT) 41 U/L (16-63) Alkaline Phosphatase 64 U/L (46-116) Creatine Kinase 103 U/L (39-308) Creatine Kinase MB (Mass) 1.6 ng/mL (0.0-3.6) Creatine Kinase MB Relative Index 1.6 % (0-4) Troponin I Quantitative 0.116 ng/mL (0.000-0.055) 0.127 ng/mL (0.000-0.055) 0.112 ng/mL (0.000-0.055) VT-Pnk-K-Type Natriuretic Peptide 16878 pg/mL (0-449) Total Protein 5.7 g/dL (6.4-8.2) Albumin 2.3 g/dL (3.4-5.0) Albumin/Globulin Ratio 0.7 (1.0-1.7) Lipase 67 U/L (73-393) Glucose (Fingerstick) 142 mg/dL (70-99) Thyroid Stimulating Hormone (TSH) 0.382 uIU/mL (0.358-3.74) Test 01/07/20 17:32 Glucose (Fingerstick) 95 mg/dL (70-99) Laboratory Tests Test 01/07/20 08:08 01/07/20 11:53 01/07/20 11:55 01/07/20 14:41 White Blood Count 2.7 x10^3/uL (4.0-11.0) Red Blood Count 3.07 x10^6/uL (4.30-5.70) Hemoglobin 8.3 g/dL (13.0-17.5) Hematocrit 25.7 % (39.0-53.0) Mean Corpuscular Volume 84 fL (79-100) Mean Corpuscular Hemoglobin 27 pg (25-35) Mean Corpuscular Hemoglobin Concent 32 g/dL (31-37) Red Cell Distribution Width 19.3 % (11.5-14.5) Platelet Count 109 x10^3/uL (140-400) Neutrophils (%) (Auto) 56 % (31-73) Lymphocytes (%) (Auto) 13 % (24-48) Monocytes (%) (Auto) 29 % (0-9) Eosinophils (%) (Auto) 1 % (0-3) Basophils (%) (Auto) 1 % (0-3) Neutrophils # (Auto) 1.5 x10^3/uL (1.8-7.7) Lymphocytes # (Auto) 0.4 x10^3/uL (1.0-4.8) Monocytes # (Auto) 0.8 x10^3/uL (0.0-1.1) Eosinophils # (Auto) 0.0 x10^3/uL (0.0-0.7) Basophils # (Auto) 0.0 x10^3/uL (0.0-0.2) Segmented Neutrophils % 63 % (35-66) Band Neutrophils % 1 % (0-9) Lymphocytes % 13 % (24-48) Monocytes % 21 % (0-10) Eosinophils % 1 % (0-5) Basophils % 1 % (0-3) Platelet Estimate Decreased (ADEQUATE) Anisocytosis Slight Ovalocytes Occ Prothrombin Time 14.5 SEC (11.7-14.0) Prothromb Time International Ratio 1.2 (0.8-1.1) Activated Partial Thromboplast Time 34 SEC (24-38) Sodium Level 141 mmol/L (136-145) Potassium Level 3.4 mmol/L (3.5-5.1) Chloride Level 104 mmol/L (98-107) Carbon Dioxide Level 27 mmol/L (21-32) Anion Gap 10 (6-14) Blood Urea Nitrogen 19 mg/dL (8-26) Creatinine 1.3 mg/dL (0.7-1.3) Estimated GFR (Cockcroft-Gault) 64.9 BUN/Creatinine Ratio 15 (6-20) Glucose Level 98 mg/dL (70-99) Calcium Level 8.7 mg/dL (8.5-10.1) Magnesium Level 1.8 mg/dL (1.8-2.4) Total Bilirubin 0.4 mg/dL (0.2-1.0) Aspartate Amino Transf (AST/SGOT) 38 U/L (15-37) Alanine Aminotransferase (ALT/SGPT) 41 U/L (16-63) Alkaline Phosphatase 64 U/L (46-116) Creatine Kinase 103 U/L (39-308) Creatine Kinase MB (Mass) 1.6 ng/mL (0.0-3.6) Creatine Kinase MB Relative Index 1.6 % (0-4) Troponin I Quantitative 0.116 ng/mL (0.000-0.055) 0.127 ng/mL (0.000-0.055) 0.112 ng/mL (0.000-0.055) NC-Zxq-K-Type Natriuretic Peptide 14817 pg/mL (0-449) Total Protein 5.7 g/dL (6.4-8.2) Albumin 2.3 g/dL (3.4-5.0) Albumin/Globulin Ratio 0.7 (1.0-1.7) Lipase 67 U/L (73-393) Glucose (Fingerstick) 142 mg/dL (70-99) Thyroid Stimulating Hormone (TSH) 0.382 uIU/mL (0.358-3.74) Test 01/07/20 17:32 Glucose (Fingerstick) 95 mg/dL (70-99) Images Images Chest x-ray as above Assessment/Plan Assessment/Plan 1. Discharges of the patient's AICD. 3 episodes over the past 24 hours. History of 2 previous bypass surgeries as well as decreased LV function. Medical problems including squamous cell carcinomas right lung status post radiation treatment and chemotherapy. Will place in the intensive care unit. Continue to monitor lab. Update echocardiogram. Obtain records from [facility]. 2. Previous bypass surgery on 2 occasions and most recent in 2012. We'll continue rule out protocol. Check echocardiogram. 3. Hypertension. Blood pressure for control. Continue to monitor and adjust as needed. 4. Chronic kidney disease. Continue to monitor lab. 5. Diabetes mellitus. As per the primary service. Thank you for allowing us to participate in the care of your patient. TANYA MORGAN MD Jan 07, 2020 18:19
[2020-01-07] MEDS: INSULIN LISPRO 300 UNITS/3 ML VIAL. SQ SCH (21:00)
[2020-01-07 21:10] VITALS: BP 106/57
--- NOTE | 2020-01-07 21:15 | NUR ---
The patient, NAVEED KRAUSE, 74 y/o, M admitted by INÉS CONCEPCION MD, was given written information regarding hospital policies, unit procedures and contact persons. Valuables were checked and all questions answered. Denies needs at the current time. Will continue to monitor.
[2020-01-07] MEDS: ATORVASTATIN CALCIUM 40 MG TABLET. PO SCH (21:29)
[2020-01-07] MEDS: HEPARIN for SUB-Q USE 5,000 UNIT/ML VIAL. SQ SCH (21:33)
[2020-01-07 23:00] VITALS: BP 113/55
[2020-01-08] VITALS (12 sets, daily range): BP systolic 76–132; BP diastolic 45–66
[2020-01-08] MEDS: HEPARIN for SUB-Q USE 5,000 UNIT/ML VIAL. SQ SCH ×3 (05:20→20:15)
[2020-01-08 06:01] LABS: CALCIUM 8.6 mg/dL (8.5-10.1); CREATININE 1.3 mg/dL (0.7-1.3); GFR 64.9; MAGNESIUM 2.6 mg/dL (1.8-2.4); POTASSIUM 3.8 mmol/L (3.5-5.1)
[2020-01-08 06:04] LABS: CHOLESTEROL/HDL RATIO 4.9
[2020-01-08] MEDS: ASPIRIN ENTERIC COATED 81 MG TABLET.DR. PO SCH (08:49)
[2020-01-08] MEDS: LISINOPRIL 10 MG TABLET PO SCH (08:50)
[2020-01-08] MEDS: CLOPIDOGREL BISULFATE 75 MG TABLET PO SCH (08:50)
[2020-01-08] MEDS: POTASSIUM CHLORIDE 20 MEQ TABLET.ER. PO SCH (08:50)
[2020-01-08] MEDS: FUROSEMIDE 40 MG TABLET. PO SCH (08:50)
[2020-01-08] MEDS: ISOSORBIDE MONONITRATE ER 30 MG TAB.ER.24H PO SCH (08:50)
[2020-01-08] MEDS: CARVEDILOL 12.5 MG TABLET. PO SCH (08:51)
--- NOTE | 2020-01-08 10:23 | NUR ---
SS following for discharge planning. SS reviewed pt chart. Pt is from home and is currently on room air. PT/OT ordered. SS will continue to follow for discharge planning.
--- NOTE | 2020-01-08 11:07 | PDOC ---
[employer] PROGRESS NOTE Chief Complaint Chief Complaint Ventricular Fibrillation - s/p AICD discharge x2. 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 -Chart reviewed and care discussed with nursing staff. -Pt comfortable in NAD. Pt has no new complaints at this time. Vitals/I&O Vitals/I&O: Vital Signs Date Time Temp Pulse Resp B/P (MAP) Pulse Ox O2 Delivery O2 Flow Rate FiO2 01/08/20 08:51 99 01/08/20 07:00 98.8 20 132/66 (88) 91 Room Air 98.8 I & O 01/07/20 01/07/20 01/08/20 15:00 23:00 07:00 Intake Total 300 ml Balance 300 ml Physical Exam General: Alert, Oriented X3, No acute distress Heart: Regular rate, No murmurs Lungs: Clear Abdomen: Normal bowel sounds Extremities: No clubbing, No cyanosis, No edema, Normal pulses, No tenderness/swelling Skin: No rashes, No breakdown, No significant lesion Labs Labs: Laboratory Tests Test 01/07/20 11:53 01/07/20 11:55 01/07/20 14:41 01/07/20 17:32 Glucose (Fingerstick) 142 mg/dL (70-99) 95 mg/dL (70-99) Troponin I Quantitative 0.127 ng/mL (0.000-0.055) 0.112 ng/mL (0.000-0.055) Thyroid Stimulating Hormone (TSH) 0.382 uIU/mL (0.358-3.74) Test 01/07/20 21:17 01/08/20 05:25 01/08/20 08:00 Glucose (Fingerstick) 109 mg/dL (70-99) 120 mg/dL (70-99) Sodium Level 142 mmol/L (136-145) Potassium Level 3.8 mmol/L (3.5-5.1) Chloride Level 106 mmol/L (98-107) Carbon Dioxide Level 25 mmol/L (21-32) Anion Gap 11 (6-14) Blood Urea Nitrogen 15 mg/dL (8-26) Creatinine 1.3 mg/dL (0.7-1.3) Estimated GFR (Cockcroft-Gault) 64.9 Glucose Level 113 mg/dL (70-99) Calcium Level 8.6 mg/dL (8.5-10.1) Magnesium Level 2.6 mg/dL (1.8-2.4) Troponin I Quantitative 0.091 ng/mL (0.000-0.055) Triglycerides Level 136 mg/dL (0-150) Cholesterol Level 89 mg/dL (0-200) LDL Cholesterol, Calculated 44 mg/dL (0-100) VLDL Cholesterol, Calculated 27 mg/dL (0-40) Non-HDL Cholesterol Calculated 71 mg/dL (0-129) HDL Cholesterol 18 mg/dL (40-60) Cholesterol/HDL Ratio 4.9 Review of Systems Review of Systems: denies chest pain or soa Assessment and Plan Assessmemt and Plan Problems Medical Problems: (1) Defibrillator discharge Status: Acute (2) Elevated troponin Status: Acute (3) History of ventricular fibrillation Status: Acute (4) Hypokalemia Status: Acute (5) Pancytopenia Status: Acute A/P: Ventricular Fibrillation - s/p AICD discharge x2. Pancytopenia HTN (Hypertension) Hypokalemia CAD (Coronary artery disease) s/p CABG x2 CHF (Congestive heart failure) s/p AICD DM2 (Diabetes Mellitus Type 2) Squamous cell lung cancer of right lung Plan: -Cardiac monitoring -Potassium 40meq PO once -Goal K>4, MG>2 -Will trend labs -Serial enzymes/ECGs -Continue Lasix -Cardio Following -PT/OT eval -DVT ppx - Heparin -FULL CODE Comment Review of Relevant I have reviewed the following items broderick (where applicable) has been applied. Medications: Current Medications Medications (Trade) Dose Ordered Sig/Ned Route PRN Reason Start Time Stop Time Status Last Admin Dose Admin Aspirin (Ecotrin) 81 mg DAILY PO 01/08/20 09:00 01/08/20 08:49 Carvedilol (Coreg) 12.5 mg BIDWMEALS PO 01/07/20 18:00 01/08/20 08:51 Clopidogrel Bisulfate (Plavix) 75 mg DAILY PO 01/08/20 09:00 01/08/20 08:50 Isosorbide Mononitrate (Imdur) 30 mg DAILY PO 01/08/20 09:00 01/08/20 08:50 Lisinopril (Prinivil) 10 mg DAILY PO 01/08/20 09:00 01/08/20 08:50 Potassium Chloride (Klor-Con) 20 meq DAILY PO 01/08/20 09:00 01/08/20 08:50 Atorvastatin Calcium (Lipitor) 80 mg QHS PO 01/07/20 21:00 01/07/20 21:29 Magnesium Sulfate 50 ml @ 25 mls/hr 1X ONCE IV 01/07/20 17:00 01/07/20 18:59 DC 01/07/20 17:54 Furosemide (Lasix) 40 mg DAILY PO 01/08/20 09:00 01/08/20 08:50 Heparin Sodium (Porcine) (Heparin Sodium) 5,000 unit Q8HRS SQ 01/07/20 22:00 01/08/20 05:20 LINK LINDSEY III DO Jan 08, 2020 11:07
[2020-01-08] MEDS ORDERED: POTASSIUM CHLORIDE 20 MEQ TABLET.ER. PO ONE (11:15)
--- NOTE | 2020-01-08 12:01 | PDOC ---
CARDIO Progress Notes Date and Time Date of Service 01/08/20 Time of Evaluation 1150 Subjective Subjective: No Chest Pain, No shortness of breath, No Palpitations Vitals Vitals Vital Signs Date Time Temp Pulse Resp B/P (MAP) Pulse Ox O2 Delivery O2 Flow Rate FiO2 01/08/20 08:51 99 01/08/20 08:15 Room Air 01/08/20 07:00 98.8 20 132/66 (88) 91 98.8 Weight Weight [ ] Input and Output Intake and Output Intake and Output 01/08/20 07:00 Intake Total 300 ml Balance 300 ml Intake Oral 300 ml Laboratory Labs Laboratory Tests Test 01/07/20 11:53 01/07/20 11:55 01/07/20 14:41 01/07/20 17:32 Glucose (Fingerstick) 142 mg/dL (70-99) 95 mg/dL (70-99) Troponin I Quantitative 0.127 ng/mL (0.000-0.055) 0.112 ng/mL (0.000-0.055) Thyroid Stimulating Hormone (TSH) 0.382 uIU/mL (0.358-3.74) Test 01/07/20 21:17 01/08/20 05:25 01/08/20 08:00 01/08/20 11:43 Glucose (Fingerstick) 109 mg/dL (70-99) 120 mg/dL (70-99) 167 mg/dL (70-99) Sodium Level 142 mmol/L (136-145) Potassium Level 3.8 mmol/L (3.5-5.1) Chloride Level 106 mmol/L (98-107) Carbon Dioxide Level 25 mmol/L (21-32) Anion Gap 11 (6-14) Blood Urea Nitrogen 15 mg/dL (8-26) Creatinine 1.3 mg/dL (0.7-1.3) Estimated GFR (Cockcroft-Gault) 64.9 Glucose Level 113 mg/dL (70-99) Calcium Level 8.6 mg/dL (8.5-10.1) Magnesium Level 2.6 mg/dL (1.8-2.4) Troponin I Quantitative 0.091 ng/mL (0.000-0.055) Triglycerides Level 136 mg/dL (0-150) Cholesterol Level 89 mg/dL (0-200) LDL Cholesterol, Calculated 44 mg/dL (0-100) VLDL Cholesterol, Calculated 27 mg/dL (0-40) Non-HDL Cholesterol Calculated 71 mg/dL (0-129) HDL Cholesterol 18 mg/dL (40-60) Cholesterol/HDL Ratio 4.9 Physical Exam HEENT: Neck Supple W Full Motion Chest: Symmetric LUNGS: Clear to Auscultation, Other (diminished ) Heart: S1S2, RRR Abdomen: Soft N/T Extremities: No Edema Neurology: alert, oriented Assessment Assessment 1. V-FIB; s/p AICD defibrillation therapy x3. 2. Mild troponin elevation; peak 0.127. Likely type II, demand ischemia. CP free 3. CAD s/p CABG x2. Most recent in 2012. 4. Hypertension 5. Acute on chronic systolic CHF 6. ICM s/p AICD; Echo 03/2018 with an EF of 20-25% 7. CKD; Cr stable 8. Diabetes, II 9. Pancytopenia. chemo induced 10. Stage III squamous cell lung CA; on chemo and radiation therapy. Last radiation 01/04/20 and was to have chemo 11/01/20, but was too weak. Recommendations Echo pending Keep Mg >2.0 and K >4.[address] [facility]. Given recurrent VF, will start IV Amiodarone for now. Continue secondary prevention measures; ASA/Plavix, statin, BB, ACEi, Imdur. Will convert Coreg to Toprol for rate control Consider further ischemic evaluation Further recommendations pending review of records Supportive care JERICA BARRERA APRN Jan 08, 2020 12:01
--- NOTE | 2020-01-08 12:04 | CARD ---
MR#: [id number] Date of Study: 01/08/2020 Ordering Physician: DES DICKENS, Referring Physician: DES DICKENS, Tech: Pankaj Gonzalez [facility] APPROVED REPORT EXAM: Two-dimensional and M-mode echocardiogram with Doppler and color Doppler. Other Information Quality : AverageHR: 82bpm Rhythm : Pacemaker INDICATION Chest Pain Congestive Heart Failure AICD Discharge 2D DIMENSIONS Left Atrium(2D)5.2 (1.6-4.0cm)IVSd1.2 (0.7-1.1cm) Aortic Root(2D)3.4 (2.0-3.7cm)LVDd6.7 (3.9-5.9cm) LVOT Diameter2.1 (1.8-2.4cm)PWd1.0 (0.7-1.1cm) LVDs6.3 (2.5-4.0cm)FS (%) 5.1 % SV25.5 ml Aortic Valve AoV Peak Baldev.206.2cm/sAoV VTI34.8cm AO Peak GR.17.0mmHgLVOT Peak Baldev.68.4cm/s AO Mean GR.8mmHgAVA (VMAX)1.17cm2 Mitral Valve MV E Krggcbzq300.0cm/sMV DECEL NJNC020mv MV A Qovyyztm077.2cm/sE/A Ratio0.9 MV A Lhtkmtol344qj Pulmonary Valve PV Peak Whcnxtet15.2cm/s Tricuspid Valve TR P. Lvegpzxq068qc/sRAP SSEFLGPD5izHl TR Peak Gr.45stNuYMLE32gkIq Pulmonary Vein S1 Zlpxqfgq38.9cm/sD2 Jaohdsfj80.7cm/s PVa [id number] LEFT VENTRICLE The Left Ventricle is moderately dilated. There is normal left ventricular wall thickness. The ejecti on fraction is severely impaired. The Ejection Fraction is estimated at 15%. There is severe global h ypokinesis of the left ventricle. Transmitral Doppler flow pattern is Grade I-abnormal relaxation pat tern. RIGHT VENTRICLE The right ventricle is normal size. There is normal right ventricular wall thickness. The right ventr icular systolic function is normal. There are device leads in the right ventrical and atrium. ATRIA The left atrium is moderately dilated. The right atrium size is normal. A device lead is seen in the right atrium consistent with history. The interatrial septum is intact with no evidence for an atrial septal defect or patent foramen ovale as noted on 2-D or Doppler imaging. AORTIC VALVE The aortic valve is moderately calcified. Doppler and Color Flow revealed mild aortic regurgitation. There is mild valvular aortic stenosis. MITRAL VALVE The mitral valve is normal in structure and function. There is no evidence of mitral valve prolapse. There is no mitral valve stenosis. Doppler and Color-flow revealed moderate mitral regurgitation. TRICUSPID VALVE The tricuspid valve is normal in structure and function. Doppler and Color Flow revealed mild to mode rate tricuspid regurgitation with PAP of 39 mmHg. There is no tricuspid valve prolapse or vegetation. There is no tricuspid valve stenosis. GREAT VESSELS The aortic root is normal in size. The ascending aorta is normal in size. The pulmonary artery is nor mal. The IVC is normal in size and collapses >50% with inspiration. PERICARDIAL EFFUSION There is no pleural effusion. The pericardium appears normal. Critical Notification Critical Value: No <Conclusion> The Left Ventricle is moderately dilated. The ejection fraction is severely impaired. The Ejection Fraction is estimated at 15%. There is severe global hypokinesis of the left ventricle. There are device leads in the right ventrical and atrium. Doppler and Color Flow revealed mild aortic regurgitation. There is mild valvular aortic stenosis. Doppler and Color-flow revealed moderate mitral regurgitation. Doppler and Color Flow revealed mild to moderate tricuspid regurgitation with PAP of 39 mmHg. Signed by : Des Dickens MD Electronically Approved : 01/08/2020 12:04:01
[2020-01-08] MEDS: INSULIN LISPRO 300 UNITS/3 ML VIAL. SQ SCH ×4 (12:18→20:11)
[2020-01-08] MEDS ORDERED: AMIODARONE 150 MG in IV DEXTROSE 5% 100ML 100 ML IV ONE (13:00)
[2020-01-08] MEDS: AMIODARONE 450 MG in IV DEXTROSE 5% 250 ML IV PRN ×2 (14:02→23:45)
[2020-01-08] MEDS: ATORVASTATIN CALCIUM 40 MG TABLET. PO SCH (20:09)
[2020-01-08] MEDS: METOPROLOL SUCC 24HR ER 50 MG TAB.ER.24H. PO SCH (20:09)
[2020-01-09] VITALS (12 sets, daily range): BP systolic 97–135; BP diastolic 52–62
[2020-01-09 05:53] LABS: BASO % 1 % (0-3); EOS % 1 % (0-3); HEMATOCRIT 28.4 % (39.0-53.0); HEMOGLOBIN 9.1 g/dL (13.0-17.5); LYMPH # 0.4 x10^3/uL (1.0-4.8); LYMPH % 13 % (24-48); MEAN CORPUSCULAR HEMOGLOBIN 27 pg (25-35); MEAN CORPUSCULAR HGB CONC 32 g/dL (31-37); MEAN CORPUSCULAR VOLUME 83 fL (79-100); MONO # 0.8 x10^3/uL (0.0-1.1); MONO % 26 % (0-9); NEUT # 1.8 x10^3/uL (1.8-7.7); NEUT % 59 % (31-73); PLATELET COUNT 135 x10^3/uL (140-400); RED BLOOD COUNT 3.41 x10^6/uL (4.30-5.70); WHITE BLOOD COUNT 3.1 x10^3/uL (4.0-11.0)
[2020-01-09 06:00] LABS: CALCIUM 8.5 mg/dL (8.5-10.1); CREATININE 1.5 mg/dL (0.7-1.3); GFR 55.1; POTASSIUM 3.7 mmol/L (3.5-5.1)
[2020-01-09] MEDS: HEPARIN for SUB-Q USE 5,000 UNIT/ML VIAL. SQ SCH ×3 (06:06→21:04)
[2020-01-09] MEDS: INSULIN LISPRO 300 UNITS/3 ML VIAL. SQ SCH ×4 (07:30→21:00)
[2020-01-09] MEDS: ASPIRIN ENTERIC COATED 81 MG TABLET.DR. PO SCH (09:23)
[2020-01-09] MEDS: CLOPIDOGREL BISULFATE 75 MG TABLET PO SCH (09:23)
[2020-01-09] MEDS: POTASSIUM CHLORIDE 20 MEQ TABLET.ER. PO SCH ×2 (09:24→13:55)
[2020-01-09] MEDS: FUROSEMIDE 40 MG TABLET. PO SCH (09:24)
[2020-01-09] MEDS: ISOSORBIDE MONONITRATE ER 30 MG TAB.ER.24H PO SCH (09:26)
[2020-01-09] MEDS: LISINOPRIL 10 MG TABLET PO SCH (09:27)
[2020-01-09] MEDS: METOPROLOL SUCC 24HR ER 50 MG TAB.ER.24H. PO SCH (09:28)
--- NOTE | 2020-01-09 09:54 | PDOC ---
[facility] [facility] PROGRESS NOTE Chief Complaint Chief Complaint Ventricular Fibrillation - s/p AICD discharge x2. 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 -Chart reviewed and care discussed with nursing staff. -Pt comfortable in NAD. Pt has no new complaints at this time. 01/09/2020 Patient seen and examined chart reviewed specialist notes reviewed d/w RN at beside Vitals/I&O Vitals/I&O: Vital Signs Date Time Temp Pulse Resp B/P (MAP) Pulse Ox O2 Delivery O2 Flow Rate FiO2 01/09/20 09:28 77 117/65 01/09/20 07:00 98.9 20 99 Room Air 98.9 I & O 01/08/20 01/08/20 01/09/20 15:00 23:00 07:00 Intake Total 700 ml Balance 700 ml Physical Exam General: Alert, Oriented X3, No acute distress Heart: Regular rate, No murmurs Lungs: Clear Abdomen: Normal bowel sounds Extremities: No clubbing, No cyanosis, No edema, Normal pulses, No tenderness/swelling Skin: No rashes, No breakdown, No significant lesion Labs Labs: Laboratory Tests Test 01/08/20 11:43 01/08/20 16:55 01/08/20 20:11 01/09/20 05:40 Glucose (Fingerstick) 167 mg/dL (70-99) 104 mg/dL (70-99) 115 mg/dL (70-99) White Blood Count 3.1 x10^3/uL (4.0-11.0) Red Blood Count 3.41 x10^6/uL (4.30-5.70) Hemoglobin 9.1 g/dL (13.0-17.5) Hematocrit 28.4 % (39.0-53.0) Mean Corpuscular Volume 83 fL (79-100) Mean Corpuscular Hemoglobin 27 pg (25-35) Mean Corpuscular Hemoglobin Concent 32 g/dL (31-37) Red Cell Distribution Width 19.0 % (11.5-14.5) Platelet Count 135 x10^3/uL (140-400) Neutrophils (%) (Auto) 59 % (31-73) Lymphocytes (%) (Auto) 13 % (24-48) Monocytes (%) (Auto) 26 % (0-9) Eosinophils (%) (Auto) 1 % (0-3) Basophils (%) (Auto) 1 % (0-3) Neutrophils # (Auto) 1.8 x10^3/uL (1.8-7.7) Lymphocytes # (Auto) 0.4 x10^3/uL (1.0-4.8) Monocytes # (Auto) 0.8 x10^3/uL (0.0-1.1) Eosinophils # (Auto) 0.0 x10^3/uL (0.0-0.7) Basophils # (Auto) 0.0 x10^3/uL (0.0-0.2) Sodium Level 139 mmol/L (136-145) Potassium Level 3.7 mmol/L (3.5-5.1) Chloride Level 103 mmol/L (98-107) Carbon Dioxide Level 25 mmol/L (21-32) Anion Gap 11 (6-14) Blood Urea Nitrogen 15 mg/dL (8-26) Creatinine 1.5 mg/dL (0.7-1.3) Estimated GFR (Cockcroft-Gault) 55.1 Glucose Level 156 mg/dL (70-99) Calcium Level 8.5 mg/dL (8.5-10.1) Test 01/09/20 08:12 Glucose (Fingerstick) 131 mg/dL (70-99) Review of Systems Review of Systems: Patient reports mild SOAW/E, denies chest pain, denies N/V/D Assessment and Plan Assessmemt and Plan Assessment Ventricular Fibrillation - s/p AICD discharge x2. 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 Medications: Current Medications Medications (Trade) Dose Ordered Sig/Ned Route PRN Reason Start Time Stop Time Status Last Admin Dose Admin Potassium Chloride (Klor-Con) 40 meq 1X ONCE PO 01/08/20 11:15 01/08/20 11:17 DC 01/08/20 12:06 Amiodarone HCl 150 mg/Dextrose 103 ml @ 600 mls/hr 1X ONCE IV 01/08/20 13:00 01/08/20 13:10 DC 01/08/20 13:13 Amiodarone HCl 450 mg/Dextrose 259 ml @ 0 mls/hr CONT PRN IV SEE I/O RECORD 01/08/20 13:00 01/09/20 12:59 01/08/20 23:45 Metoprolol Succinate (Toprol Xl) 50 mg DAILY PO 01/08/20 21:00 01/09/20 09:28 LINK LINDSEY III DO Jan 09, 2020 09:54
[2020-01-09] MEDS: HYDROcodone/APAP 5/325MG 1 TAB TABLET PO PRN ×2 (11:06→21:04)
--- NOTE | 2020-01-09 11:58 | PDOC ---
CARD[facility] Progress Notes Date and Time Date of Service 01/09/20 Time of Evaluation 1150 Subjective Subjective: No shortness of breath, No Palpitations, Other (c/o central chest pain with swallowing.) Vitals Vitals Vital Signs Date Time Temp Pulse Resp B/P (MAP) Pulse Ox O2 Delivery O2 Flow Rate FiO2 01/09/20 11:06 99 Room Air 01/09/20 11:00 98.8 70 20 103/62 (76) 98.8 01/09/20 07:00 Weight Weight [ ] Input and Output Intake and Output Intake and Output 01/09/20 07:00 Intake Total 700 ml Balance 700 ml Intake Oral 700 ml # Bowel Movements 1 Laboratory Labs Laboratory Tests Test 01/08/20 16:55 01/08/20 20:11 01/09/20 05:40 01/09/20 08:12 Glucose (Fingerstick) 104 mg/dL (70-99) 115 mg/dL (70-99) 131 mg/dL (70-99) White Blood Count 3.1 x10^3/uL (4.0-11.0) Red Blood Count 3.41 x10^6/uL (4.30-5.70) Hemoglobin 9.1 g/dL (13.0-17.5) Hematocrit 28.4 % (39.0-53.0) Mean Corpuscular Volume 83 fL (79-100) Mean Corpuscular Hemoglobin 27 pg (25-35) Mean Corpuscular Hemoglobin Concent 32 g/dL (31-37) Red Cell Distribution Width 19.0 % (11.5-14.5) Platelet Count 135 x10^3/uL (140-400) Neutrophils (%) (Auto) 59 % (31-73) Lymphocytes (%) (Auto) 13 % (24-48) Monocytes (%) (Auto) 26 % (0-9) Eosinophils (%) (Auto) 1 % (0-3) Basophils (%) (Auto) 1 % (0-3) Neutrophils # (Auto) 1.8 x10^3/uL (1.8-7.7) Lymphocytes # (Auto) 0.4 x10^3/uL (1.0-4.8) Monocytes # (Auto) 0.8 x10^3/uL (0.0-1.1) Eosinophils # (Auto) 0.0 x10^3/uL (0.0-0.7) Basophils # (Auto) 0.0 x10^3/uL (0.0-0.2) Sodium Level 139 mmol/L (136-145) Potassium Level 3.7 mmol/L (3.5-5.1) Chloride Level 103 mmol/L (98-107) Carbon Dioxide Level 25 mmol/L (21-32) Anion Gap 11 (6-14) Blood Urea Nitrogen 15 mg/dL (8-26) Creatinine 1.5 mg/dL (0.7-1.3) Estimated GFR (Cockcroft-Gault) 55.1 Glucose Level 156 mg/dL (70-99) Calcium Level 8.5 mg/dL (8.5-10.1) Physical Exam HEENT: Neck Supple W Full Motion Chest: Symmetric LUNGS: Clear to Auscultation, Other (diminished ) Heart: S1S2, RRR Abdomen: Soft N/T Extremities: No Edema Neurology: alert, oriented, follow commands Assessment Assessment 1. V-FIB; s/p AICD defibrillation therapy x3. On Amiodarone gtt 2. Mild troponin elevation; peak 0.127. Likely type II, demand ischemia. CP free 3. CAD s/p CABG x2. Most recent in 2012. 4. Hypertension 5. Acute on chronic systolic CHF 6. ICM s/p AICD; Echo 03/2018 with an EF of 20-25%. Repeat echo with an EF of 15%. 7. CKD; Cr stable 8. Diabetes, II 9. Pancytopenia. chemo induced 10. Stage III squamous cell lung CA; on chemo and radiation therapy. Last radiation 01/04/20 and was to have chemo 11/01/20, but was too weak. 11. Chest pain, atypical. central chest. Only occurs with swallowing. Most probably GI in nature Recommendations Will try GI cocktail for CP Start PPI Start oral Amiodarone 200mg BID when 24hr gtt complete Keep Mg >2.0 and K >4.0 Awaiting records from [facility]. Continue secondary prevention measures; ASA/Plavix, statin, BB, ACEi, Imdur. Consider further ischemic evaluation Further recommendations pending review of records Supportive care JERICA BARRERA APRN Jan 09, 2020 11:58
[2020-01-09] MEDS ORDERED: POTASSIUM CHLORIDE 20 MEQ TABLET.ER. PO ONE (12:00)
[2020-01-09] MEDS ORDERED: LIDO:MAALOX 1:1 20 ML SINGLE DOSE. SWSW ONE (12:45)
[2020-01-09] MEDS: PANTOPRAZOLE 40 MG TABLET.DR. PO SCH (15:28)
[2020-01-09] MEDS: AMIODARONE HCL 200 MG TABLET. PO SCH (17:13)
[2020-01-09] MEDS ORDERED: AMIODARONE HCL 200 MG TABLET. PO SCH (21:00)
[2020-01-09] MEDS: ATORVASTATIN CALCIUM 40 MG TABLET. PO SCH (21:03)
[2020-01-10] VITALS (7 sets, daily range): BP systolic 68–106; BP diastolic 50–59
[2020-01-10] MEDS: HEPARIN for SUB-Q USE 5,000 UNIT/ML VIAL. SQ SCH ×2 (05:02→14:00)
[2020-01-10] MEDS: HYDROcodone/APAP 5/325MG 1 TAB TABLET PO PRN ×3 (05:03→14:28)
[2020-01-10] MEDS: INSULIN LISPRO 300 UNITS/3 ML VIAL. SQ SCH ×3 (07:30→16:30)
[2020-01-10] MEDS: CLOPIDOGREL BISULFATE 75 MG TABLET PO SCH (08:56)
[2020-01-10] MEDS: ASPIRIN ENTERIC COATED 81 MG TABLET.DR. PO SCH (08:56)
[2020-01-10] MEDS: LISINOPRIL 10 MG TABLET PO SCH (08:57)
[2020-01-10] MEDS: FUROSEMIDE 40 MG TABLET. PO SCH (08:57)
[2020-01-10] MEDS: PANTOPRAZOLE 40 MG TABLET.DR. PO SCH (08:57)
[2020-01-10] MEDS: AMIODARONE HCL 200 MG TABLET. PO SCH (08:57)
[2020-01-10] MEDS: METOPROLOL SUCC 24HR ER 50 MG TAB.ER.24H. PO SCH (08:58)
[2020-01-10] MEDS: ISOSORBIDE MONONITRATE ER 30 MG TAB.ER.24H PO SCH (08:59)
[2020-01-10] MEDS ORDERED: METO200T46 PO (10:57)
[2020-01-10] MEDS ORDERED: AMIO200T4 PO (10:59)
[2020-01-10] MEDS ORDERED: HYDR-2761 PO (10:59)
[2020-01-10] MEDS ORDERED: PANT20TA2 PO (11:00)
[2020-01-10] MEDS ORDERED: METO50TA4 PO (11:03)
[2020-01-10] MEDS ORDERED: POTASSIUM CHLORIDE 20 MEQ TABLET.ER. PO ONE (12:30)
--- NOTE | 2020-01-10 12:39 | PDOC ---
[employer] [facility] PROGRESS NOTE Chief Complaint Chief Complaint Ventricular Fibrillation - s/p AICD discharge x3. Mild Troponin Elevation, Likely Type II, CP Free Pancytopenia: Chemo induced HTN (Hypertension) Hypokalemia CAD (Coronary artery disease) s/p CABG x2 Acute on chronic systolic CHF s/p AICD CKD DM2 (Diabetes Mellitus Type 2) Stage 3 Squamous cell lung cancer of right lung History of Present Illness History of Present Illness 01/08/2020 -Pt seen and examined. -Chart reviewed and care discussed with nursing staff. -Pt comfortable in NAD. Pt has no new complaints at this time. 01/09/2020 Patient seen and examined chart reviewed specialist notes reviewed d/w RN at [facility] 01/10/2020 -Pt seen and examined. -Chart reviewed and care discussed with nursing staff. -Pt laying comfortably in bed. Cardiology gave him a GI cocktail to see if it would alleviate some of his dysphagia. He does not think it helped. However, he does not wish to have any GI sources of his chest discomfort investigated at this time. He states he wants to go home. Vitals/I&O Vitals/I&O: Vital Signs Date Time Temp Pulse Resp B/P (MAP) Pulse Ox O2 Delivery O2 Flow Rate FiO2 01/10/20 11:15 97/53 (68) 01/10/20 11:15 98.1 83 18 96 Room Air 98.1 01/09/20 07:00 I & O 01/09/20 01/09/20 01/10/20 14:59 22:59 06:59 Intake Total 200 ml Output Total 400 ml 600 ml 400 ml Balance -200 ml -600 ml -400 ml Physical Exam General: Alert, Oriented X3, No acute distress Heart: Regular rate, No murmurs Lungs: Clear Abdomen: Normal bowel sounds Extremities: No clubbing, No cyanosis, No edema, Normal pulses, No tenderness/swelling Skin: No rashes, No breakdown, No significant lesion Labs Labs: Laboratory Tests Test 01/09/20 12:41 01/09/20 17:31 01/10/20 08:25 01/10/20 11:45 Glucose (Fingerstick) 138 mg/dL (70-99) 156 mg/dL (70-99) 127 mg/dL (70-99) 121 mg/dL (70-99) Review of Systems Review of Systems: denies chest pain Reports trouble swallowing Assessment and Plan Assessmemt and Plan Problems Medical Problems: (1) Defibrillator discharge Status: Acute (2) Elevated troponin Status: Acute (3) History of ventricular fibrillation Status: Acute (4) Hypokalemia Status: Acute (5) Pancytopenia Status: Acute Assessment: Ventricular Fibrillation - s/p AICD discharge x3. Mild Troponin Elevation, Likely Type II, CP Free Pancytopenia: Chemo induced HTN (Hypertension) Hypokalemia CAD (Coronary artery disease) s/p CABG x2 Acute on chronic systolic CHF s/p AICD CKD DM2 (Diabetes Mellitus Type 2) Stage 3 Squamous cell lung cancer of right lung Plan: -Potassium 40meq PO X1: goal to keep K>4 -Cardiac Monitoring -IV transitioned to PO Amiodarone -Cardiology following -[facility] Labs -Continue home meds -DVT ppx -Full Code -Probable discharge later today Comment Review of Relevant I have reviewed the following items broderick (where applicable) has been applied. Medications: Current Medications Medications (Trade) Dose Ordered Sig/Ned Route PRN Reason Start Time Stop Time Status Last Admin Dose Admin Multi-Ingredient Mouthwash/Gargle (Gi Cocktail) 20 ml 1X ONCE SWSW 01/09/20 12:45 01/09/20 12:46 DC 01/09/20 13:52 Pantoprazole Sodium (Protonix) 40 mg DAILYAC PO 01/09/20 16:00 01/10/20 08:57 Amiodarone HCl (Cordarone) 200 mg BID PO 01/09/20 17:00 01/10/20 08:57 LINK LINDSEY III DO Jan 10, 2020 12:39
--- NOTE | 2020-01-10 13:47 | PDOC ---
CARDIO Progress Notes Date and Time Date of Service 01/10/20 Time of Evaluation 1310 Subjective Subjective: No shortness of breath, No Palpitations, Other (c/o central chest adn throat pain with swallowing, which has been chronic) Vitals Vitals Vital Signs Date Time Temp Pulse Resp B/P (MAP) Pulse Ox O2 Delivery O2 Flow Rate FiO2 01/10/20 11:15 97/53 (68) 01/10/20 11:15 98.1 83 18 96 Room Air 98.1 01/09/20 07:00 Weight Weight [ ] Input and Output Intake and Output Intake and Output 01/10/20 07:00 Intake Total 200 ml Output Total 1400 ml Balance -1200 ml Intake Oral 200 ml Output Urine Total 1400 ml Laboratory Labs Laboratory Tests Test 01/09/20 17:31 01/10/20 08:25 01/10/20 11:45 Glucose (Fingerstick) 156 mg/dL (70-99) 127 mg/dL (70-99) 121 mg/dL (70-99) Physical Exam HEENT: Neck Supple W Full Motion Chest: Symmetric LUNGS: Clear to Auscultation, Other (diminished ) Heart: S1S2, RRR Abdomen: Soft N/T Extremities: No Edema Neurology: alert, oriented, follow commands Assessment Assessment 1. V-FIB; s/p AICD defibrillation therapy x3. On Amiodarone. No further arrhythmias noted 2. Mild troponin elevation; peak 0.127. Likely type II, demand ischemia. CP free 3. CAD s/p CABG x2. Most recent in 2012. 4. Hypertension 5. Acute on chronic systolic CHF 6. ICM s/p AICD; Echo 03/2018 with an EF of 20-25%. Repeat echo with an EF of 15%. 7. CKD; Cr stable 8. Diabetes, II 9. Pancytopenia. chemo induced 10. Stage III squamous cell lung CA; on chemo with paclitaxel, carboplatin and radiation therapy. Last radiation 01/04/20 and was to have chemo 11/01/20, but was too weak. 11. Chest pain, atypical. central/throat that occurs with swallowing. This has been chronic issue following radiation therapy. He had been on fentanyl patch and oxycodone, which he has not been receiving here. Recommendations Amiodarone for rhythm maintenance Keep Mg >2.0 and K >4.0 Continue secondary prevention measures; ASA/Plavix, statin, BB, ACEi, Imdur. Consider further ischemic evaluation Resume oxycodone, fentanyl as per PCP Supportive care Follow up with Dr. Bermudez as scheduled. JERICA BARRERA APRN Jan 10, 2020 13:47
[2020-01-10] MEDS ORDERED: OXYC10TA46 PO ×3 (16:55→17:46)
[2020-01-10] MEDS ORDERED: FENT1PAT15 TP (16:55)
[2020-01-10] MEDS ORDERED: oxyCODONE IR 5 MG TABLET PO PRN (18:00)
[2020-01-10] MEDS ORDERED: fentaNYL 25MCG/HR PATCH 1 PATCH PATCH.TD72 TD SCH (18:00)
[2020-01-10] MEDS ORDERED: HEPARIN PF 500 UNIT/5 ML DISP.SYRIN. IVP ONE (18:45)
[2020-01-10] MEDS ORDERED: HEPARIN PF 500 UNIT/5 ML DISP.SYRIN. ONE (18:46)
== END 2020-01-10 19:30 | disposition home or self-care (01) | DRG 291 ==
LOC: ER 07:06 → ED HOLD 08:35 → 2 NORTH 21:06
PROVIDERS: ADMIT Internal Medicine; ATTEND Internal Medicine
DX: I13.0 Hypertensive heart and chronic kidney disease with heart failure and stage 1 through stage 4 chronic kidney disease, or unspecified chronic kidney disease (principal); I50.23 Acute on chronic systolic (congestive) heart failure; I49.01 Ventricular fibrillation; D61.810 Antineoplastic chemotherapy induced pancytopenia; C34.91 Malignant neoplasm of unspecified part of right bronchus or lung; J98.11 Atelectasis; E11.22 Type 2 diabetes mellitus with diabetic chronic kidney disease; E78.5 Hyperlipidemia, unspecified; E87.6 Hypokalemia; I25.10 Atherosclerotic heart disease of native coronary artery without angina pectoris; I48.91 Unspecified atrial fibrillation; J44.9 Chronic obstructive pulmonary disease, unspecified; N18.9 Chronic kidney disease, unspecified; R13.10 Dysphagia, unspecified; T45.1X5A Adverse effect of antineoplastic and immunosuppressive drugs, initial encounter; Z83.3 Family history of diabetes mellitus; Z86.79 Personal history of other diseases of the circulatory system; Z87.891 Personal history of nicotine dependence; Z92.3 Personal history of irradiation; Z95.1 Presence of aortocoronary bypass graft; Z95.810 Presence of automatic (implantable) cardiac defibrillator; K21.9 Gastro-esophageal reflux disease without esophagitis; M19.90 Unspecified osteoarthritis, unspecified site
CPT/HCPCS: 36415; 71045; 80048; 80053; 80061; 82553; 82962; 83690; 83735; 83880; 84443; 84484; 85007; 85025; 85610; 85730; 93005; 93306; 96365; 99285; J0282; J1644; J1815; J3475; G0378